=== PATIENT | male | born 1990 | race Caucasian/White ===

== ENCOUNTER → 2017-02-02 | Outpatient (CLI) | payer MEDICARE, OTHER ==
[2017-02-02 10:45] LABS: Basophils # (A) 0.1 k/uL (0-0.2); Basophils % (A) 1 %; CH 32.7; CHCM 33.9; Eosinophils # (A) 0.1 k/uL (0-0.7); Eosinophils % (A) 2 %; HCT 41.7 % (39.0-53.0); HDW 3.02; HGB 14.1 gm/dL (13.0-17.5); Luc # (Auto) 0.28; Luc % (Auto) 4; Lymphocytes % (A) 27 %; MCH 32.6 pg (25.0-35.0); MCHC 33.7 g/dL (31.0-37.0); MCV 96.8 fL (80.0-100.0); Mean Platelet Volume 9.5; Monocytes # (A) 0.7 k/uL (0-1.0); Monocytes % (A) 9 %; Neutrophils # (A) 4.2 k/uL (1.3-7.7); Neutrophils % (A) 57 %; RBC 4.31 m/uL (4.30-5.90); RDW 15.9 % (11.5-15.5); WBC 7.4 k/uL (3.8-10.6)
[2017-02-02 11:12] LABS: ALT 41 U/L (21-72); AST 26 U/L (17-59); Alkaline Phosphatase 83 U/L (38-126); Anion Gap 11 mmol/L; Bilirubin, Delta 0.1 mg/dL (0.0-0.2); Blood Urea Nitrogen 10 mg/dL (9-20); Calcium 9.2 mg/dL (8.4-10.2); Carbon Dioxide 27 mmol/L (22-30); Chloride 105 mmol/L (98-107); Cholesterol 131 mg/dL (<200); Glucose 81 mg/dL (74-99); HDL Cholesterol 24 mg/dL (40-60); Non-African American GFR(MDRD) >60 (>60 ml/min/1.73 sqM); Potassium 4.4 mmol/L (3.5-5.1); Sodium 143 mmol/L (137-145); Total Bilirubin 0.3 mg/dL (0.2-1.3); Total Protein 6.7 g/dL (6.3-8.2); Triglycerides 205 mg/dL (<150)
[2017-02-02 13:16] LABS: Hemoglobin A1C 5.2 % (4.2-6.1)
== END | disposition home or self-care (01) ==
LOC: LABWHC1 09:58
PROVIDERS: ATTEND Nurse Practitioner Family
DX: E03.9 Hypothyroidism, unspecified (principal); E55.9 Vitamin D deficiency, unspecified; Q90.9 Down syndrome, unspecified; Z79.01 Long term (current) use of anticoagulants
CPT/HCPCS: 36415; 80053; 80061; 80164; 82248; 82306; 83036; 84439; 84443; 84481; 85025

== ENCOUNTER 2017-02-27 19:06 | Emergency (ER) | payer MEDICARE, OTHER ==
[2017-02-27 19:37] VITALS: TEMP 98.3
[2017-02-27] MEDS ORDERED: ACETAMINOPHEN TAB 325 MG TAB PO STA (20:03)
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
[2017-02-27 22:00] VITALS: BP 129/69; PULSE 84; RESP 18
== END 2017-02-28 01:17 | disposition home or self-care (01) ==
LOC: EC 19:06
DX: F91.9 Conduct disorder, unspecified (principal); E07.9 Disorder of thyroid, unspecified; F32.9 Major depressive disorder, single episode, unspecified; Q90.9 Down syndrome, unspecified; Z79.899 Other long term (current) drug therapy
CPT/HCPCS: 80306; 82075; 99284

== ENCOUNTER 2017-03-17 06:55 | Emergency (ER) | payer MEDICARE, OTHER ==
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
[2017-03-17 09:15] LABS: Appearance,Urine Clear (Clear); Bilirubin,Urine Negative (Negative); Glucose,Urine (UA) Negative (Negative); Ketones,Urine Trace (Negative); Leukocyte Esterase,Urine Negative (Negative); Nitrite,Urine Negative (Negative); PH, Urine 5.5 (5.0-8.0); Protein,Urine Negative (Negative); Specific Gravity,Urine 1.016 (1.001-1.035); UA Billing (MACRO vs. MICRO) CHEM; Urobilinogen,Urine <2.0 mg/dL (<2.0)
[2017-03-17 09:51] LABS: Anisocytosis Slight; Basophils % (A) 0 %; CH 33.2; CHCM 33.5; Eosinophils # (A) 0.1 k/uL (0-0.7); Eosinophils % (A) 1 %; HCT 44.7 % (39.0-53.0); HDW 2.71; HGB 14.6 gm/dL (13.0-17.5); Luc # (Auto) 0.14; Luc % (Auto) 2; Lymphocytes # (A) 1.5 k/uL (1.0-4.8); Lymphocytes % (A) 24 %; MCH 32.4 pg (25.0-35.0); MCHC 32.6 g/dL (31.0-37.0); MCV 99.5 fL (80.0-100.0); Macrocytosis Slight; Mean Platelet Volume 9.7; Monocytes # (A) 0.5 k/uL (0-1.0); Monocytes % (A) 8 %; Neutrophils # (A) 4.1 k/uL (1.3-7.7); Neutrophils % (A) 65 %; RBC 4.49 m/uL (4.30-5.90); RDW 16.5 % (11.5-15.5); WBC 6.4 k/uL (3.8-10.6); WBC (Perox) 6.42
[2017-03-17 10:03] LABS: ALT 32 U/L (21-72); AST 21 U/L (17-59); Alkaline Phosphatase 71 U/L (38-126); Anion Gap 11 mmol/L; Blood Urea Nitrogen 10 mg/dL (9-20); Calcium 9.4 mg/dL (8.4-10.2); Carbon Dioxide 25 mmol/L (22-30); Chloride 105 mmol/L (98-107); Glucose 74 mg/dL (74-99); Magnesium 1.9 mg/dL (1.6-2.3); Non-African American GFR(MDRD) >60 (>60 ml/min/1.73 sqM); Potassium 4.4 mmol/L (3.5-5.1); Sodium 141 mmol/L (137-145); Total Bilirubin 0.4 mg/dL (0.2-1.3); Total Protein 7.7 g/dL (6.3-8.2)
--- NOTE | 2017-03-17 11:05 | XR ---
EXAMINATION TYPE: XR abdomen acute w cxr DATE OF EXAM: 03/17/2017 COMPARISON: Prior chest x-ray 11/28/2015 HISTORY: Pain TECHNIQUE: Frontal view of the chest, 3 views of the abdomen are submitted. FINDINGS: Bilateral airspace disease is present, the hemidiaphragms are partially obscured, lung vol umes are low and the patient is rotated. Heart may be enlarged, appearance of the size may be accentu ated by rotation. There is no evidence for pneumoperitoneum. The bowel gas pattern is unremarkable as there is air throughout nondilated small and large bowel. No sizeable air fluid levels. No mass effects are seen. No unusual calcifications. IMPRESSION: Correlate to exclude congestive heart failure, pneumonia. Follow-up recommended.
--- NOTE | 2017-03-17 11:46 | XR ---
EXAMINATION TYPE: XR chest 2V DATE OF EXAM: 03/17/2017 COMPARISON: Prior chest x-ray 11/28/2015 HISTORY: Cough and weakness TECHNIQUE: Frontal and lateral views of the chest are obtained. FINDINGS: Patient is rotated. Cardiac mediastinal silhouette, pulmonary vascularity and nicky appeara nce. Difficult to exclude basilar airspace disease, there is no evident pneumothorax or sizable effus ion. Exam is expiratory. IMPRESSION: Difficult to exclude right lower lobe pneumonia.
[2017-03-17] MEDS ORDERED: AZITHROMYCIN 500 MG TAB PO STA (12:13)
[2017-03-17 12:59] VITALS: BP 126/67; PULSE 81; RESP 18; TEMP 96.9
== END 2017-03-17 13:04 | disposition home or self-care (01) ==
LOC: EC 06:55
DX: F43.20 Adjustment disorder, unspecified (principal); J18.9 Pneumonia, unspecified organism; E07.9 Disorder of thyroid, unspecified; F32.9 Major depressive disorder, single episode, unspecified; Z79.899 Other long term (current) drug therapy
CPT/HCPCS: 36415; 71020; 74022; 80053; 80164; 81003; 83735; 83880; 85025; 99285

== ENCOUNTER 2017-03-17 19:42 | Inpatient (IN) | payer MEDICARE, OTHER, MEDICAID ==
[2017-03-17 20:42] LABS: Appearance,Urine Clear (Clear); Bilirubin,Urine Negative (Negative); Glucose,Urine (UA) Negative (Negative); Ketones,Urine 1+ (Negative); Leukocyte Esterase,Urine Negative (Negative); Mucus,Urine Occasional /hpf; Nitrite,Urine Negative (Negative); Particle Count 4127; Protein,Urine 1+ (Negative); RBC,Urine 1 /hpf (0-5); Specific Gravity,Urine 1.031 (1.001-1.035); Squamous Epithelial Cell,Urine <1 /hpf (0-4); UA Billing (MACRO vs. MICRO) MICRO; WBC,Urine 2 /hpf (0-5)
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
[2017-03-18] MEDS ORDERED: ZIPRASIDONE 20 MG VIAL IM PRN (19:55)
[2017-03-18] MEDS ORDERED: MAGNESIUM HYDROXIDE 2,400 MG/10 ML CUP PO PRN (19:55)
[2017-03-18] MEDS ORDERED: MAG HYDROX/AL HYDROX/SIMETH 30 ML CUP PO PRN (19:55)
[2017-03-18] MEDS: ACETAMINOPHEN TAB 325 MG TAB PO PRN (20:34)
[2017-03-18] MEDS: VALPROIC ACID ORAL SOLN 250 MG/5 ML CUP PO SCH (22:16)
[2017-03-18] MEDS: clonazePAM 1 MG TAB PO SCH (22:16)
[2017-03-18] MEDS: OLANZapine ODT 10 MG TAB PO SCH (22:16)
[2017-03-19] MEDS: FLUoxetine ORAL SOLN 20 MG/5 ML CUP PO SCH (09:34)
[2017-03-19] MEDS: VALPROIC ACID ORAL SOLN 250 MG/5 ML CUP PO SCH ×2 (09:37→22:09)
[2017-03-19] MEDS: LEVOTHYROXINE 25 MCG TAB PO SCH (09:39)
[2017-03-19] MEDS: clonazePAM 1 MG TAB PO SCH ×2 (09:40→15:52)
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
--- NOTE | 2017-03-19 15:02 | P.CONS ---
History of Present Illness - Reason for Consult Consult date: 03/19/17 Advice regarding hypothyroidism requested by psych - History of Present Illness This 36-year-old gentleman with a past medical history of for Down syndrome, hypothyroidism, history of pneumonia, followed by Dr. Armijo in the preceding was admitted with psychiatric evaluation. The patient is minimally verbal. Unable to white a detailed history. Most often history is taken from the discussion staff and review chart. There is no history of trauma. No history of nausea chest pain palpitations shortness of breath at this time. Review of Systems Review of system Could not be taken because of the patient's baseline mental status Past Medical History Past Medical History: GERD/Reflux, Thyroid Disorder Additional Past Medical History / Comment(s): down syndrome History of Any Multi-Drug Resistant Organisms: C-DIFF Year Discovered:: 02/06/2010 MDRO Source:: stool Past Surgical History: Appendectomy, Orthopedic Surgery Additional Past Surgical History / Comment(s): 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 Past Anesthesia/Blood Transfusion Reactions: No Reported Reaction Past Psychological History: Depression Smoking Status: Never smoker Past Alcohol Use History: None Reported Past Drug Use History: None Reported - Past Family History Mother Family Medical History: No Reported History Father Family Medical History: Myocardial Infarction ([place]) Medications and Allergies Home Medications Medication Instructions Recorded Confirmed Type Cholecalciferol [Vitamin D3] 3,000 unit PO DAILY@1600 11/25/15 03/17/17 History FLUoxetine HCL [PROzac ORAL SOLN] 50 mg PO DAILY@0800 11/25/15 03/17/17 History Levothyroxine Sodium [Synthroid] 25 mcg PO DAILY@0800 11/25/15 03/17/17 History OLANZapine [ZyPREXA Zydis] 10 mg PO DAILY@1600 02/27/17 03/17/17 History Valproic Acid Oral Soln [Depakene 1,250 mg PO BID@0800,2100 02/27/17 03/17/17 History Syrup] Azithromycin [Zithromax Z-pack] See Taper PO DAILY 03/17/17 03/17/17 History Clonazepam Odt 1 Mg 1 mg PO BID@0800,1600 03/17/17 03/17/17 History Clotrimazole Cream [Lotrimin Cream] 1 applic TOPICAL DAILY@1600 03/17/17 History Allergies Allergy/AdvReac Type Severity Reaction Status Date / Time No Known Allergies Allergy Verified 03/17/17 19:56 Physical Exam Vitals: Vital Signs Temp Pulse Pulse Resp BP BP Pulse Ox 03/18/17 20:20 99.1 F 82 16 114/61 98 03/18/17 18:21 97.7 F 71 18 133/60 95 On exam, alert and oriented x3. HEENT: Conjunctivae normal. eyes normal. NECK: No JVD. No thyroid enlargement. No LNs CARDIOVASCULAR: S1, S2 muffled. No murmur RESPIRATION: Breath sounds diminished in the bases. No rhonchi or crackles. No bronchial breathing. ABDOMEN: Soft, nontender . No guarding. no masses palpable. No ascites, No hepatosplenomegaly.Bowel sounds heard. LEGS: No edema. no swelling NERVOUS SYSTEM: Cranial N 2-12 grossly normal. Moves all 4 limbs. No focal deficits. No sensory deficit. No signs of cerebellar dysfucntion. Skin: no ulcer no rash Joints: No active swelling. No inflammation. Lymphatic system. No LN neck axilla or groin. Assessment and Plan Plan: Assessment 1. Hypothyroidism 2. Down syndrome 3. History of pneumonia 4. Rule out psychosis Plan In this 26-year-old gentleman who was admitted for psychiatric evaluation at this time I would recommend a home medications. Continue the same dose of hypo- thyroid medications. Continue the rest of the medication. Medication reconciliation done. I will follow the patient closely with the psych. We'll be happy to review any abnormal labs. Recommend close follow-up with Dr. Armijo after discharge. Thank you.
[2017-03-19] MEDS: OLANZapine ODT 10 MG TAB PO SCH (15:53)
[2017-03-19] MEDS: CHOLECALCIFEROL 1,000 UNIT TAB PO SCH (15:53)
[2017-03-19] MEDS: CLOTRIMAZOLE 1% CREAM 15 GM TUBE TOPICAL SCH (16:00)
[2017-03-20] MEDS: FLUoxetine ORAL SOLN 20 MG/5 ML CUP PO SCH (10:27)
[2017-03-20] MEDS: VALPROIC ACID ORAL SOLN 250 MG/5 ML CUP PO SCH ×2 (10:28→20:20)
[2017-03-20] MEDS: LEVOTHYROXINE 25 MCG TAB PO SCH (10:28)
[2017-03-20] MEDS: clonazePAM 1 MG TAB PO SCH ×2 (10:28→17:08)
--- NOTE | 2017-03-20 13:26 | P.PN ---
Progress Note - Text Interval History: Patient was seen this morning in his room where he was sitting on his bed, he was dressed in a new [facility] shirt. Patient did respond in brief sentences to most of my questions. Patient was pleasant, smiling when he responded that he had eaten breakfast and when I asked him about his stuffed animal. Patient also responded yes to his coloring activity and when I asked about the long-term on this occasion he shook his head no that he did not like it there. Mental Status: Appearance/Attitude: Patient is sitting in bed in a new [facility] shirt, making intermittent eye contact and he was cooperative. Behavior: Patient did not display any psychomotor agitation or retardation during my interview. Speech/Language: Patient only responded in brief yes or no answers to my questions at times his speech is slightly garbled and difficult to understand. Thought Process: Patient responded to questions yes or no, further assessment of his thought processes is not possible. Thought Content: Patient does not appear to be responding to internal stimuli, further assessment is difficult due to the patient's limited verbal skills. Suicidal/Homicidal Ideation: Patient has not demonstrated any self-injurious behavior or assaultive behavior on the unit. Sensorium/Cognition: Patient is alert and oriented to person and location Mood/Affect: Patient's mood is pleasant and his affect is appropriate Insight/Judgement: Patient's insight and judgment are impaired. Assessment: patient has been cooperative on the inpatient unit and there have been no incidents of aggressive or assaultive behavior. Patient has been maintained on a one-to-one staffing and has not been attending groups. Patient has been sleeping and eating well, he has been cooperative with staff. Plan: Patient was discussed in the team treatment meeting, patient has been doing well on the unit possibly due to his one-to-one staffing, as when I spoke with his mother she reported that he does well with more attention. Patient's medications have remained unchanged since his admission was there have been no incidents which would necessitate an adjustment in his medications. We will discuss with [facility] on Thursday returning the patient to his prior long-term but recommending that more intensive staffing be provided to the patient while he adjusts to his new living situation.
[2017-03-20] MEDS: CHOLECALCIFEROL 1,000 UNIT TAB PO SCH (17:07)
[2017-03-20] MEDS: OLANZapine ODT 10 MG TAB PO SCH (17:07)
[2017-03-20] MEDS: CLOTRIMAZOLE 1% CREAM 15 GM TUBE TOPICAL SCH (17:08)
[2017-03-21] MEDS: VALPROIC ACID ORAL SOLN 250 MG/5 ML CUP PO SCH ×2 (09:59→20:34)
[2017-03-21] MEDS: clonazePAM 1 MG TAB PO SCH ×2 (09:59→16:18)
[2017-03-21] MEDS: LEVOTHYROXINE 25 MCG TAB PO SCH (09:59)
[2017-03-21] MEDS: FLUoxetine ORAL SOLN 20 MG/5 ML CUP PO SCH (09:59)
[2017-03-21] MEDS: CHOLECALCIFEROL 1,000 UNIT TAB PO SCH (16:18)
[2017-03-21] MEDS: OLANZapine ODT 10 MG TAB PO SCH (16:18)
[2017-03-21] MEDS: CLOTRIMAZOLE 1% CREAM 15 GM TUBE TOPICAL SCH (16:19)
--- NOTE | 2017-03-21 17:04 | P.PN ---
Progress Note - Text Interval history: Patient is seen in cross coverage for Dr. Phoenix. He is seen in his room with one-to-one staff present. He is currently sitting on his bed. He answers questions very briefly. He seems to relay that he is not eating well, but staff does relate that he just ate and seemed to finish everything. He does seem to be compliant with the psychotropic medications. Per staff he has not been exhibiting any agitation today. Mental status exam: He is found in his room, the interview was done with him sitting on his bed. One-to-one staff is present. His answers are very brief. At times difficult to understand. He does not seem to make any reference to thoughts of harm to self or others. He does not show any current agitation. Plan: We'll maintain current psychotropic medication regimen. We'll continue to cover this patient for Dr. Phoenix through the weekend.
[2017-03-22] MEDS: LEVOTHYROXINE 25 MCG TAB PO SCH (09:33)
[2017-03-22] MEDS: VALPROIC ACID ORAL SOLN 250 MG/5 ML CUP PO SCH ×2 (09:33→21:06)
[2017-03-22] MEDS: clonazePAM 1 MG TAB PO SCH ×2 (09:33→15:22)
[2017-03-22] MEDS: FLUoxetine ORAL SOLN 20 MG/5 ML CUP PO SCH (09:33)
--- NOTE | 2017-03-22 13:30 | P.PN ---
Progress Note - Text Interval history: Patient is seen in cross coverage today for Dr. Phoenix. He is seen with one-to-one staff present. He is seated on his bed. He seems to be more verbal today as compared to yesterday. He does seem to relay that he is eating well. He seems to report that he is not sleeping that well. Seems to report that his mood is about the same. Mental status exam: He is alert and cooperative overall he does not show any agitation. He seems to describe that his mood is about the same. He responds yes regarding any thoughts of harm to self or others, then when asked regarding these separately it's very difficult to understand what his responses are. Plan: We'll maintain current psychotropic medication regimen. Monitor for any medication side effects and for any agitation. Monitor regarding any thoughts of harm to self or others. Dr. Phoenix to resume care of this patient starting tomorrow.
[2017-03-22] MEDS: CLOTRIMAZOLE 1% CREAM 15 GM TUBE TOPICAL SCH (15:20)
[2017-03-22] MEDS: OLANZapine ODT 10 MG TAB PO SCH (15:22)
[2017-03-22] MEDS: CHOLECALCIFEROL 1,000 UNIT TAB PO SCH (15:23)
[2017-03-23] MEDS: OLANZapine ODT 5 MG TAB PO PRN ×2 (08:42→22:58)
[2017-03-23] MEDS ORDERED: WATER FOR INJECTION, STERILE 10 ML IV ONE (09:09)
[2017-03-23] MEDS ORDERED: ZIPRASIDONE 20 MG VIAL IM ONE (09:09)
[2017-03-23] MEDS: FLUoxetine ORAL SOLN 20 MG/5 ML CUP PO SCH (10:27)
[2017-03-23] MEDS: clonazePAM 1 MG TAB PO SCH ×2 (10:27→16:47)
[2017-03-23] MEDS: LEVOTHYROXINE 25 MCG TAB PO SCH (10:27)
[2017-03-23] MEDS: VALPROIC ACID ORAL SOLN 250 MG/5 ML CUP PO SCH ×2 (10:27→20:29)
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
[2017-03-23] MEDS: CLOTRIMAZOLE 1% CREAM 15 GM TUBE TOPICAL SCH (16:44)
[2017-03-23] MEDS: CHOLECALCIFEROL 1,000 UNIT TAB PO SCH (16:47)
[2017-03-23] MEDS: OLANZapine ODT 5 MG TAB PO SCH (16:48)
[2017-03-23] MEDS: ACETAMINOPHEN TAB 325 MG TAB PO PRN (20:27)
--- NOTE | 2017-03-23 20:48 | XR ---
EXAMINATION TYPE: XR chest 1V DATE OF EXAM: 03/23/2017 COMPARISON: 03/17/2017 HISTORY: Cough and weakness TECHNIQUE: Single frontal view of the chest is obtained. FINDINGS: There is coarsening of interstitial markings. Heart size is normal. There is no definite h eart failure. There is no sign of pleural effusion. Costophrenic angles are clear. IMPRESSION: Coarse lung markings are nonspecific and could relate to some interstitial pneumonia. No change compared to last exam
[2017-03-24] MEDS: FLUoxetine ORAL SOLN 20 MG/5 ML CUP PO SCH (09:55)
[2017-03-24] MEDS: VALPROIC ACID ORAL SOLN 250 MG/5 ML CUP PO SCH ×2 (09:56→20:09)
[2017-03-24] MEDS: clonazePAM 1 MG TAB PO SCH ×2 (09:56→16:40)
--- NOTE | 2017-03-24 10:33 | P.PN ---
Subjective reviewed the cxr, asymptomatic, modified diet NO need for abx concern for aspiration cleared for dc Objective - Vital Signs Vital signs: Vital Signs Temp 99.1 F 03/18/17 20:20 Pulse 64 03/23/17 06:54 Resp 18 03/23/17 06:54 BP 134/75 03/23/17 06:54 Pulse Ox 98 03/18/17 20:20
[2017-03-24 11:19] LABS: Basophils # (A) 0.1 k/uL (0-0.2); Basophils % (A) 1 %; CH 32.2; CHCM 32.1; Eosinophils # (A) 0.2 k/uL (0-0.7); Eosinophils % (A) 3 %; HDW 2.79; HGB 14.8 gm/dL (13.0-17.5); Luc # (Auto) 0.22; Luc % (Auto) 4; Lymphocytes % (A) 32 %; MCH 32.4 pg (25.0-35.0); MCHC 32.2 g/dL (31.0-37.0); MCV 100.6 fL (80.0-100.0); Macrocytosis Slight; Mean Platelet Volume 8.9; Monocytes # (A) 0.5 k/uL (0-1.0); Monocytes % (A) 9 %; Neutrophils # (A) 3.2 k/uL (1.3-7.7); Neutrophils % (A) 52 %; RBC 4.57 m/uL (4.30-5.90); RDW 15.7 % (11.5-15.5); WBC 6.1 k/uL (3.8-10.6); WBC (Perox) 6.23
[2017-03-24 11:32] LABS: Anion Gap 11 mmol/L; Blood Urea Nitrogen 11 mg/dL (9-20); Calcium 9.1 mg/dL (8.4-10.2); Carbon Dioxide 28 mmol/L (22-30); Chloride 103 mmol/L (98-107); Glucose 158 mg/dL (74-99); Non-African American GFR(MDRD) >60 (>60 ml/min/1.73 sqM); Potassium 4.4 mmol/L (3.5-5.1); Sodium 142 mmol/L (137-145)
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
[2017-03-24] MEDS: LEVOTHYROXINE 25 MCG TAB PO SCH (15:09)
[2017-03-24] MEDS: OLANZapine ODT 5 MG TAB PO SCH (16:40)
[2017-03-24] MEDS: CHOLECALCIFEROL 1,000 UNIT TAB PO SCH (16:40)
[2017-03-24] MEDS: CLOTRIMAZOLE 1% CREAM 15 GM TUBE TOPICAL SCH ×2 (16:41→16:54)
[2017-03-24] MEDS: ACETAMINOPHEN TAB 325 MG TAB PO PRN (20:12)
[2017-03-25 07:20] VITALS: BP 98/56; PULSE 74; RESP 12; TEMP 97.8
[2017-03-25] MEDS: clonazePAM 1 MG TAB PO SCH (09:40)
[2017-03-25] MEDS: LEVOTHYROXINE 25 MCG TAB PO SCH (09:40)
[2017-03-25] MEDS: FLUoxetine ORAL SOLN 20 MG/5 ML CUP PO SCH (09:41)
[2017-03-25] MEDS: VALPROIC ACID ORAL SOLN 250 MG/5 ML CUP PO SCH (09:41)
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
--- NOTE | 2017-03-25 19:02 | PN ---
DATE OF SERVICE: 03/24/2017 PRESENTING COMPLAINT: Cough. INTERVAL HISTORY: This is a patient in the psychiatric unit, doing well, eating rather well. He was admitted for agitated, assaultive behavior. Patient has a cough which is dry. No fever. Up and about. Having a bowel movement. Review of systems done for constitutional, cardiovascular, GI, pulmonary; relevant findings as above. Current medications are reviewed. On examination, comfortable. EYES: Pupils equal. Conjunctivae normal. NECK: JVD not raised. Mass not palpable. Respiratory effort normal. LUNGS: Fair air entry. CARDIOVASCULAR: First and second sounds normal. No edema. ABDOMEN: Soft, non-tender. PSYCH: Awake. Answering simple questions. Blood pressure 146/90, pulse ox 98% on room air. INVESTIGATIONS: White count 6.1. Potassium 4.4. ASSESSMENT: 1. Acute bronchitis, possibly viral; no clinical evidence of pneumonia. 2. Hypothyroidism. 3. Down syndrome with a mental age of about 5, per Nursing. 4. Obesity; BMI of 39.1. PLAN: Continue current medication and treatment plan. No change in medication. Patient should follow with his family doctor upon discharge. Thank you, Dr. Phoenix. [facility]ERS[facility]
== END 2017-03-25 12:42 | disposition home or self-care (01) | DRG 886 ==
LOC: EC 19:42 → 3MHU 03-18 19:07
PROVIDERS: ADMIT Psychiatry & Neurology Psychiatry; ATTEND Psychiatry & Neurology Psychiatry
DX: F91.9 Conduct disorder, unspecified (principal); F72 Severe intellectual disabilities; R45.851 Suicidal ideations; Q90.9 Down syndrome, unspecified; F32.9 Major depressive disorder, single episode, unspecified; R19.7 Diarrhea, unspecified; E66.9 Obesity, unspecified; J20.8 Acute bronchitis due to other specified organisms; E78.9 Disorder of lipoprotein metabolism, unspecified; R45.850 Homicidal ideations; R73.09 Other abnormal glucose; F43.20 Adjustment disorder, unspecified; K21.9 Gastro-esophageal reflux disease without esophagitis; E03.9 Hypothyroidism, unspecified; Z87.01 Personal history of pneumonia (recurrent); Z90.49 Acquired absence of other specified parts of digestive tract; Z79.899 Other long term (current) drug therapy; Z82.49 Family history of ischemic heart disease and other diseases of the circulatory system; Z63.79 Other stressful life events affecting family and household; Z86.69 Personal history of other diseases of the nervous system and sense organs; Z87.19 Personal history of other diseases of the digestive system; Z86.19 Personal history of other infectious and parasitic diseases; Z87.39 Personal history of other diseases of the musculoskeletal system and connective tissue; Z91.5 Personal history of self-harm; Z65.3 Problems related to other legal circumstances
CPT/HCPCS: 36415; 71010; 71020; 74022; 80048; 80053; 80164; 80306; 80320; 81001; 81003; 83735; 83880; 84443; 85025; 99285

== ENCOUNTER 2017-04-02 12:41 | Observation (INO) | payer MEDICARE, OTHER ==
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
[2017-04-02] MEDS ORDERED: LORazepam 1 MG TAB PO STA (22:59)
[2017-04-03] MEDS ORDERED: ONDANSETRON 4 MG/2 ML VIAL IVP PRN (00:07)
[2017-04-03] MEDS ORDERED: NALOXONE 0.4 MG/ML 1 ML VIAL IV PRN (00:07)
--- NOTE | 2017-04-03 14:11 | P.HPIM ---
History of Present Illness H&P Date: 04/03/17 Chief Complaint: Agitated History of present complaint: This is a 26 year old patient known to me from prior admission who [facility] a [facility]. Patient chronic stable medical conditions include GERD , hypothyroid, Down syndrome. He was recently recently in the mental health unit discharge on 03/25/2017 with a diagnosis of disruptive behavior. Per the ER notes patient has been more agitated and striking staff at the home where he lives. Since he's been here his bearings stable. When I walked in the room patient's sitting smiling eating a bag of chips. Of course patient's history giving is limited. There is a component patient reported being changed. As per nurse. cloth printing utility worker was involved. At the present time patient looks rather comfortable sitting up and smiling. Review of systems: Difficult to obtain as the patient is a poor historian Past medical history: GERD, hypothyroid, Down syndrome, agitation and disruptive behavior at times Past surgical history Appendectomy, orthopedic surgery, telemetry, removed from the nose, eye surgery to correct crossed eyes, osteochondroma removed from the right humerus, removal of Meckel's diverticulum Home medications: Reviewed in the electronic record ALLERGIES: None Social history: Lives in a [facility]. No smoking or alcohol Family history: Patient cannot tell VITAL SIGNS: 97.5, 74, 20, 125/64, 97% GENERAL: Well-built, BMI 39.1, sitting comfortable eating chips. EYES: Pupils equal. Conjunctiva normal. HEENT: External appearance of nose and ears normal, oral cavity grossly normal. NECK: JVD not raised; masses not palpable. HEART: First and second heart sounds are normal; no edema. LUNGS: Respiratory rate normal; clear to auscultation. ABDOMEN: Soft, nontender, liver spleen not palpable, no masses palpable. LYMPHATICS: No lymph nodes palpable in the axilla and neck. PSYCH: [Difficult to assess but patient's comfortable smiling l. NEUROLOGICAL: Cranial nerves grossly intact; no facial asymmetry, power and sensation grossly intact. 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 Past Anesthesia/Blood Transfusion Reactions: No Reported Reaction Smoking Status: Never smoker - Past Family History Mother Family Medical History: No Reported History Father Family Medical History: Myocardial Infarction ([place]) Medications and Allergies Home Medications Medication Instructions Recorded Confirmed Type Cholecalciferol [Vitamin D3] 3,000 unit PO DAILY@1600 11/25/15 04/02/17 History FLUoxetine HCL [PROzac ORAL SOLN] 50 mg PO DAILY@0800 11/25/15 04/02/17 History Levothyroxine Sodium [Synthroid] 25 mcg PO DAILY@0800 11/25/15 04/02/17 History Valproic Acid Oral Soln [Depakene 1,250 mg PO BID@0800,2100 02/27/17 04/02/17 History Syrup] Clonazepam Odt 1 Mg 1 mg PO BID@0800,1600 03/17/17 04/02/17 History Clotrimazole Cream [Lotrimin Cream] 1 applic TOPICAL DAILY@1600 03/17/17 History OLANZapine [ZyPREXA Zydis] 15 mg PO DAILY@1600 #14 tab.rapdis 03/25/17 04/02/17 Rx Allergies Allergy/AdvReac Type Severity Reaction Status Date / Time No Known Allergies Allergy Verified 04/02/17 13:00
[2017-04-03] MEDS: OLANZapine ODT 5 MG TAB PO SCH (16:59)
[2017-04-03] MEDS: clonazePAM 1 MG TAB PO SCH (16:59)
[2017-04-03] MEDS: CHOLECALCIFEROL 1,000 UNIT TAB PO SCH (16:59)
[2017-04-03] MEDS: CLOTRIMAZOLE 1% CREAM 15 GM TUBE TOPICAL SCH (17:00)
[2017-04-03] MEDS: VALPROIC ACID ORAL SOLN 250 MG/5 ML CUP PO SCH (20:12)
[2017-04-04] MEDS: VALPROIC ACID ORAL SOLN 250 MG/5 ML CUP PO SCH ×2 (08:21→19:20)
[2017-04-04] MEDS: FLUoxetine ORAL SOLN 20 MG/5 ML CUP PO SCH (08:21)
[2017-04-04] MEDS: clonazePAM 1 MG TAB PO SCH ×2 (08:22→17:21)
[2017-04-04] MEDS: LEVOTHYROXINE 25 MCG TAB PO SCH (08:23)
[2017-04-04] MEDS: ENOXAPARIN 40 MG/0.4 ML SYRINGE SQ SCH (08:23)
[2017-04-04] MEDS: CHOLECALCIFEROL 1,000 UNIT TAB PO SCH (17:20)
[2017-04-04] MEDS: CLOTRIMAZOLE 1% CREAM 15 GM TUBE TOPICAL SCH (17:21)
[2017-04-04] MEDS: OLANZapine ODT 5 MG TAB PO SCH (17:21)
--- NOTE | 2017-04-04 19:06 | P.PN ---
<Tanika Haque - Last Filed: 04/04/17 18:57> Progress Note - Text DATE OF SERVICE: 04/04/2017 PRESENTING COMPLAINT: Agitation HISTORY OF PRESENT ILLNESS: 26-year-old male who is a [facility] from a [facility]. Admitted with disruptive behavior having more agitation and striking staff at home where he lives. INTERVAL HISTORY: 04/04/2017: Patient seen in follow-up today, sitting up in his bed resting quietly briefly arousable but not really interested in participating. Tolerating his diet ambulatory with assistance moved his bowels. REVIEW OF SYSTEMS: Done for constitutional ,cardiovascular, GI, pulmonary with relevant findings as above. CURRENT MEDICATIONS Klonopin, Lovenox, Prozac, Synthroid, Zyprexa, Zofran, Depakene syrup PHYSICAL EXAM VITAL SIGNS: Temperature 98.8, pulse 67, respiratory rate 18, blood pressure 109 over first 51, oxygen saturation 92% on room air. GENERAL APPEARANCE: Lying in bed, not in distress. EYES: Pupils equal. Conjunctiva normal. NECK: JVD not raised. Mass not palpable. RESPIRATORY: Respiratory effort normal. Lungs clear to auscultation. CARDIOVASCULAR: First and second sounds normal. No edema. ABDOMEN: Soft. Liver and spleen not palpable. No tenderness. No mass palpable. PSYCHIATRY: Alert and oriented x3. Mood and affect normal. NEUROLOGICAL: Cranial nerves grossly intact. No facial asymmetry. Power and sensation grossly intact INVESTIGATIONS: None new ASSESSMENT: -Agitated behavior, resolved -Down syndrome -GERD -Hypothyroid PLAN: Place patient at [facility] soon as a bed is available. SPECIAL NEEDS CAREGIVER statement: Patient was seen and examined by nurse practitioner Tanika Haque and all elements of the case discussed with attending Dr. Chung <Marquez Chung - Last Filed: 04/04/17 22:04> Progress Note - Text Attending note. Date of service-04/04/2017 This patient was seen and examined by me . Discussed the patient with my nurse practitioner Ms. Haque. Name bed comfortable. has been eating well. No more disrupter agitated behavior noted here On examination: Lungs-clear, cardiovascular-first seconds are normal Investigations: Assessment and plan: Down syndrome. Agitated behavior resolved. Eating well. Spoke to casework specialist. Looking for disposition
[2017-04-05] MEDS: VALPROIC ACID ORAL SOLN 250 MG/5 ML CUP PO SCH ×2 (09:44→19:26)
[2017-04-05] MEDS: ENOXAPARIN 40 MG/0.4 ML SYRINGE SQ SCH (09:45)
[2017-04-05] MEDS: LEVOTHYROXINE 25 MCG TAB PO SCH (09:45)
[2017-04-05] MEDS: clonazePAM 1 MG TAB PO SCH ×2 (09:45→17:09)
[2017-04-05] MEDS: FLUoxetine ORAL SOLN 20 MG/5 ML CUP PO SCH (09:45)
[2017-04-05] MEDS: CLOTRIMAZOLE 1% CREAM 15 GM TUBE TOPICAL SCH (17:08)
[2017-04-05] MEDS: OLANZapine ODT 5 MG TAB PO SCH (17:09)
[2017-04-05] MEDS: CHOLECALCIFEROL 1,000 UNIT TAB PO SCH (17:09)
--- NOTE | 2017-04-05 20:31 | P.PN ---
Progress Note - Text Attending note. Date of service-04/05/2017 This patient was seen and examined by me . Discussed the patient with my nurse practitioner Ms. Haque. Comfortable. Laying in bed. Has been eating well. BMI is well controlled. On examination: Lungs-clear, patient comfortable Investigations: Assessment and plan: Attitude and behavior well controlled. Down syndrome/GERD Hypothyroid. Patient pending transfer to [facility] social work involved.
--- NOTE | 2017-04-05 20:48 | P.PN ---
Progress Note - Text DATE OF SERVICE: 04/05/2017 PRESENTING COMPLAINT: Agitation HISTORY OF PRESENT ILLNESS: 26-year-old male who is a resident from a [facility]. Admitted with disruptive behavior having more agitation and striking staff at home where he lives. INTERVAL HISTORY: 04/05/2017: Patient seen in follow-up today, lying in bed resting quietly briefly arousable not really interested in engaging. Tolerates his diet, ambulatory with assistance, moved his bowels. 04/04/2017: Patient seen in follow-up today, sitting up in his bed resting quietly briefly arousable but not really interested in participating. Tolerating his diet ambulatory with assistance moved his bowels. REVIEW OF SYSTEMS: Done for constitutional ,cardiovascular, GI, pulmonary with relevant findings as above. CURRENT MEDICATIONS Klonopin, Lovenox, Prozac, Synthroid, Zyprexa, Zofran, Depakene syrup PHYSICAL EXAM VITAL SIGNS: Temperature 98.0, respiratory rate 18, blood pressure 138/84, oxygen saturation 92% on room air. GENERAL APPEARANCE: Lying in bed, not in distress. EYES: Pupils equal. Conjunctiva normal. NECK: JVD not raised. Mass not palpable. RESPIRATORY: Respiratory effort normal. Lungs clear to auscultation. CARDIOVASCULAR: First and second sounds normal. No edema. ABDOMEN: Soft. Liver and spleen not palpable. No tenderness. No mass palpable. PSYCHIATRY: Alert and oriented x3. Mood and affect normal. INVESTIGATIONS: None new ASSESSMENT: -Agitated behavior, resolved -Down syndrome -GERD -Hypothyroid PLAN: Place patient at [facility] soon as a bed is available. We'll continue to follow closely. Plan of care discussion deferred until family present at the bedside. CUSTOM MILLER statement: Patient was seen and examined by nurse practitioner Tanika Haque and all elements of the case discussed with attending Dr. Chung
[2017-04-06] MEDS: ACETAMINOPHEN TAB 325 MG TAB PO PRN (05:36)
[2017-04-06] MEDS: VALPROIC ACID ORAL SOLN 250 MG/5 ML CUP PO SCH ×2 (07:45→22:26)
[2017-04-06] MEDS: ENOXAPARIN 40 MG/0.4 ML SYRINGE SQ SCH (07:46)
[2017-04-06] MEDS: LEVOTHYROXINE 25 MCG TAB PO SCH (07:46)
[2017-04-06] MEDS: FLUoxetine ORAL SOLN 20 MG/5 ML CUP PO SCH (07:46)
[2017-04-06] MEDS: clonazePAM 1 MG TAB PO SCH ×2 (07:46→16:59)
[2017-04-06] MEDS: OLANZapine ODT 5 MG TAB PO SCH (16:59)
[2017-04-06] MEDS: CLOTRIMAZOLE 1% CREAM 15 GM TUBE TOPICAL SCH (17:00)
[2017-04-06] MEDS: CHOLECALCIFEROL 1,000 UNIT TAB PO SCH (17:00)
--- NOTE | 2017-04-06 21:28 | PN ---
PROGRESS NOTE DATE OF SERVICE: 04/06/17. PRESENTING COMPLAINT: Lying in bed. INTERVAL HISTORY: This is a patient resident of a [facility], admitted with agitation, destructive behavior. The patient is doing really well. Loves to eat. Pending transfer. No new symptoms. The patient has not had any episodes of disruptive behavior while in the hospital. REVIEW OF SYSTEM: Was attempted for constitutional, cardiovascular, GI, pulmonary Relevant findings as above. Patient really does not talk much. MEDICATIONS: Current medications are reviewed. PHYSICAL EXAMINATION: Temp 98.5, pulse 64, respiratory rate 16, blood pressure 99/50, pulse of 93% room air. In general appearance: lying in bed, comfortable. EYES: Pupils equal. Conjunctivae normal. Neck JVD not raised. Mass not palpable. Respiratory effort: Lungs are clear. Cardiovascular first and second sounds no edema. ABDOMEN: Soft, nontender. Liver and spleen not palpable. Psychiatry: Patient does follow simple commands. Says a few words here and there at baseline. ASSESSMENT: 1. Agitated behavior resolved. 2. Down syndrome. Chronic. 3. Gastroesophageal reflux disease, chronic. 4. Hypothyroid, chronic. 5. Obesity BMI 39.1. PLAN: Continue current medications. Awaiting transfer to [facility]. Social workers involved. MMODL / IJN: [id number] /
[2017-04-07] MEDS: ENOXAPARIN 40 MG/0.4 ML SYRINGE SQ SCH (10:15)
[2017-04-07] MEDS: FLUoxetine ORAL SOLN 20 MG/5 ML CUP PO SCH (10:15)
[2017-04-07] MEDS: LEVOTHYROXINE 25 MCG TAB PO SCH (10:15)
[2017-04-07] MEDS: VALPROIC ACID ORAL SOLN 250 MG/5 ML CUP PO SCH ×2 (10:15→20:30)
[2017-04-07] MEDS: clonazePAM 1 MG TAB PO SCH ×2 (10:15→17:19)
[2017-04-07 11:50] VITALS: RESP 18
[2017-04-07] MEDS: OLANZapine ODT 5 MG TAB PO SCH (17:19)
[2017-04-07] MEDS: CLOTRIMAZOLE 1% CREAM 15 GM TUBE TOPICAL SCH (17:19)
[2017-04-07] MEDS: CHOLECALCIFEROL 1,000 UNIT TAB PO SCH (17:19)
--- NOTE | 2017-04-07 18:57 | P.PN ---
Progress Note - Text DATE OF SERVICE: 04/07/2017 PRESENTING COMPLAINT: Agitation HISTORY OF PRESENT ILLNESS: 26-year-old male who is a [facility] from a [facility]. Admitted with disruptive behavior having more agitation and striking staff at home where he lives. INTERVAL HISTORY: 04/07/2017: Patient sitting up in the chair today eating a bag of chips. Tolerating his diet, ambulatory with assistance moving his bowels. REVIEW OF SYSTEMS: Done for constitutional ,cardiovascular, GI, pulmonary with relevant findings as above. CURRENT MEDICATIONS Klonopin, Lovenox, Prozac, Synthroid, Zyprexa, Zofran, Depakene syrup PHYSICAL EXAM VITAL SIGNS: Temperature 98.0 pulse 85 respiratory rate 18 blood pressure 115/74 oxygen saturation 92% on room air GENERAL APPEARANCE: Sitting up in a chair, not in distress. EYES: Pupils equal. Conjunctiva normal. NECK: JVD not raised. Mass not palpable. RESPIRATORY: Respiratory effort normal. Lungs clear to auscultation. CARDIOVASCULAR: First and second sounds normal. No edema. ABDOMEN: Soft. Liver and spleen not palpable. No tenderness. No mass palpable. PSYCHIATRY: Alert and oriented x3. Mood and affect normal. NEUROLOGICAL: Cranial nerves grossly intact. No facial asymmetry. Power and sensation grossly intact INVESTIGATIONS: None new ASSESSMENT: -Agitated behavior, resolved -Down syndrome -GERD -Hypothyroid PLAN: Place patient at [facility] soon as a bed is available. Social work involved FRAMER statement: Patient was seen and examined by nurse practitioner Tanika Haque and all elements of the case discussed with attending Dr. Chung
[2017-04-07] MEDS: ACETAMINOPHEN TAB 325 MG TAB PO PRN (20:51)
[2017-04-08] MEDS ORDERED: LACTULOSE 20 GM/30 ML CUP PO ONE (09:54)
--- NOTE | 2017-04-08 10:05 | P.DS ---
<Tanika Haque - Last Filed: 04/08/17 09:57> Providers Date of admission: 04/03/17 00:07 Expected date of discharge: 04/08/17 Attending physician: Marquez Chung Primary care physician: [facility] Course: FINAL DIAGNOSES: -Agitated behavior, resolved -Down syndrome -GERD -Hypothyroid HOSPTIAL COURSE: 26-year-old male presented from a [facility] with disruptive behavior. Patient was more agitated striking staff. During the course of his stay here patient has been maintained on his home medications without difficulty patient has been compliant, cooperative, calm. Social work is been involved in this case in terms of getting the patient placed. Placement has been found , patient 's condition remains stable, no emotional outbursts or disruptive behavior during the course of his stay and therefore is stable for discharge. PHYSICAL EXAM: CARDIOVASCULAR: First and second sounds noted, trace edema RESPIRATORY: Effort normal, breath sounds diminished bilaterally GI: Abdomen soft nontender liver and spleen not palpable. MUSKULOSKELETAL: Ambulatory with assistance. PSYCHIATRY: Difficult to assess patient is smiling on exam, able to answer simple straightforward questions, calm and cooperative Patient was seen and examined by nurse practitioner Tanika Haque in all elements of the case discussed with attending Dr. Chung DISPOSITION: [facility] will arrive at 1:30 to pick patient up and take [facility] to his new [facility]. Patient Condition at Discharge: Stable Plan - Discharge Summary New Discharge Prescriptions: Continue FLUoxetine HCL [PROzac ORAL SOLN] 50 mg PO DAILY@0800 Levothyroxine Sodium [Synthroid] 25 mcg PO DAILY@0800 Cholecalciferol [Vitamin D3] 3,000 unit PO DAILY@1600 Valproic Acid Oral Soln [Depakene Syrup] 1,250 mg PO BID@0800,2100 Clonazepam Odt 1 Mg 1 mg PO BID@0800,1600 Clotrimazole Cream [Lotrimin Cream] 1 applic TOPICAL DAILY@1600 OLANZapine [ZyPREXA Zydis] 15 mg PO DAILY@1600 #14 tab.rapdis Discharge Medication List Cholecalciferol [Vitamin D3] 3,000 unit PO DAILY@1600 11/25/15 [History] FLUoxetine HCL [PROzac ORAL SOLN] 50 mg PO DAILY@0800 11/25/15 [History] Levothyroxine Sodium [Synthroid] 25 mcg PO DAILY@0800 11/25/15 [History] Valproic Acid Oral Soln [Depakene Syrup] 1,250 mg PO BID@0800,2100 02/27/17 [ History] Clonazepam Odt 1 Mg 1 mg PO BID@0800,1600 03/17/17 [History] Clotrimazole Cream [Lotrimin Cream] 1 applic TOPICAL DAILY@1600 03/17/17 [ History] OLANZapine [ZyPREXA Zydis] 15 mg PO DAILY@1600 #14 tab.rapdis 03/25/17 [Rx] Follow up Appointment(s)/Referral(s): Viet Guerrero MD [Primary Care Provider] - 1-2 days Discharge Disposition: OTHER INSTITUTION NOT DEFINED <Marquez Chung - Last Filed: 04/08/17 16:01> Hospital Course: Attending note. Date of service-04/08/2017 This patient was seen and examined by me . Discussed the patient with my nurse practitioner Ms. Haque. Patient doing well. Comfortable. Sitting up. Eating well. No agitated behavior reported. On examination: Lungs-clear, psych answering simple questions, sitting up on a chair and eating chips, smiling Investigations: Assessment and plan: Stable for discharge.
[2017-04-08] MEDS: ENOXAPARIN 40 MG/0.4 ML SYRINGE SQ SCH (10:47)
[2017-04-08] MEDS: LEVOTHYROXINE 25 MCG TAB PO SCH (10:48)
[2017-04-08] MEDS: clonazePAM 1 MG TAB PO SCH (10:48)
[2017-04-08] MEDS: FLUoxetine ORAL SOLN 20 MG/5 ML CUP PO SCH (10:48)
[2017-04-08] MEDS: VALPROIC ACID ORAL SOLN 250 MG/5 ML CUP PO SCH (11:38)
[2017-04-08 11:41] VITALS: BP 121/77; PULSE 93; TEMP 97.7
== END 2017-04-08 13:35 | disposition other institution (70) ==
LOC: EC 12:41 → 3OBS 04-03 00:07
PROVIDERS: ADMIT Hospitalist; ATTEND Hospitalist
DX: R45.1 Restlessness and agitation (principal); E03.9 Hypothyroidism, unspecified; Q90.9 Down syndrome, unspecified; K21.9 Gastro-esophageal reflux disease without esophagitis; Z79.899 Other long term (current) drug therapy; Z86.19 Personal history of other infectious and parasitic diseases; F32.9 Major depressive disorder, single episode, unspecified; Z82.49 Family history of ischemic heart disease and other diseases of the circulatory system; Z68.39 Body mass index [BMI] 39.0-39.9, adult; E66.9 Obesity, unspecified
CPT/HCPCS: 96372 ×5; 82075; 99285; 36415; 80306; 80320; G0378 ×6; J1650 ×5

== ENCOUNTER → 2017-05-13 | Outpatient (CLI) | payer MEDICARE, OTHER ==
--- NOTE | 2017-05-13 11:47 | FL ---
EXAMINATION TYPE: FL barium swallow w video DATE OF EXAM: 05/13/2017 MODIFIED SWALLOW / DEGLUTITION STUDY CLINICAL HISTORY: Dysphagia. History of Down syndrome. TECHNIQUE: Deglutition study is performed utilizing thin liquid barium, honey and nectar thick liqui d barium and barium thick applesauce. A total of 2 minutes 6 seconds of fluoroscopic time was utilize d during procedure. Approximately 12 cine sequences were performed. 0 images are saved to PACS system . COMPARISON: Esophagram report December 17, 2012. FINDINGS: Exam is suboptimal due to patient's underlying condition with difficulty in patient positio robi. The oral phase is suboptimal evaluated due to patient positioning. Pharyngeal phase is felt wit hin normal limits. There is no penetration and aspiration with an as well as honey and nectar thick liquid barium which do not initiate cough reflex . Mild to moderate pharyngeal residue was appreciate d. No aspiration was clearly seen with barium thick applesauce. IMPRESSION: Aspiration with less viscous modalities remains present. Please refer to speech therapist notes for further details if necessary.
== END | disposition home or self-care (01) ==
LOC: RADFLMAIN 11:02
PROVIDERS: ATTEND Internal Medicine
DX: R13.10 Dysphagia, unspecified (principal)
CPT/HCPCS: 74230

== ENCOUNTER 2021-05-07 10:35 | Inpatient (IN) | payer MEDICARE, OTHER ==
[2021-05-07] MEDS ORDERED: ONDANSETRON 4 MG/2 ML VIAL IVP STA (10:41)
[2021-05-07] MEDS ORDERED: SODIUM CHLORIDE 0.9% 1,000 ML IV ONE (10:41)
[2021-05-07] MEDS ORDERED: ACETAMINOPHEN TAB 500 MG TAB PO STA (10:41)
[2021-05-07] MEDS ORDERED: IBUPROFEN 600 MG TAB PO STA (10:41)
--- NOTE | 2021-05-07 10:55 | ED ---
General Adult HPI - General Chief complaint: Shortness of Breath Stated complaint: DRAGAN, Vomiting,Abd pain Time Seen by Provider: 05/07/21 10:35 Source: EMS, RN notes reviewed, old records reviewed, Caregiver Mode of arrival: EMS Limitations: altered mental status (Patient is a Down syndrome patient does not communicate well) - History of Present Illness Initial comments: This is a 30-year-old male who presents emergency Department with Down syndrome. Patient was fatigued yesterday a little nauseated today and did vomit once. Patient went to [facility] any was COVID positive they thought his oxygenation on room air was down to 75% but they weren't picking up a good waveform wheezing upon arrival to 98% on room air. Patient felt warm but they did not get a temperature at the adult [facility] or urgent care. I did a temperature patient 101.5 fever. Patient has occasional cough. Patient does not appear in any respiratory distress according to the caregiver. Patient has had no diarrhea. Patient does not give any history on his own. - Related Data Home Medications Medication Instructions Recorded Confirmed Cholecalciferol [Vitamin D3 (25 1,000 unit PO DAILY@199911/25/15 05/07/21 Mcg = 1000 Iu)] Clotrimazole Cream [Lotrimin Cream] 1 applic TOPICAL DAILY@0700 03/17/17 05/07/21 Albuterol Nebulized [Ventolin 1.25 mg INHALATION RT-BID PRN 05/07/21 05/07/21 Nebulized] Divalproex Sodium [Depakote 1,250 mg PO BID@0800,199905/07/21 05/07/21 Sprinkle] FLUoxetine HCL [PROzac] 20 mg PO DAILY@0800 05/07/21 05/07/21 Levothyroxine Sodium [Synthroid] 50 mcg PO DAILY@0800 05/07/21 05/07/21 OLANZapine ODT [ZyPREXA ZYDIS] 10 mg PO DAILY@2100 05/07/21 05/07/21 Previous Rx's Medication Instructions Recorded Dexamethasone [Decadron] 6 mg PO DAILY #7 tablet 05/07/21 Allergies Allergy/AdvReac Type Severity Reaction Status Date / Time No Known Allergies Allergy Verified 05/07/21 11:28 Review of Systems ROS Statement: Those systems with pertinent positive or pertinent negative responses have been documented in the HPI. ROS Other: All systems not noted in ROS Statement are negative. 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 Past Anesthesia/Blood Transfusion Reactions: No Reported Reaction Past Psychological History: Depression Smoking Status: Never smoker Past Alcohol Use History: None Reported Past Drug Use History: None Reported - Past Family History Mother Family Medical History: No Reported History Father Family Medical History: Myocardial Infarction ([place]) General Exam - General Exam Comments Initial Comments: GENERAL: Patient is well-developed and well-nourished. Patient is nontoxic and well- hydrated and is in no acute distress. ENT: Neck is soft and supple. No significant lymphadenopathy is noted. Oropharynx is clear. Moist mucous membranes. Neck has full range of motion without eliciting any pain. EYES: The sclera were anicteric and conjunctiva were pink and moist. Extraocular movements were intact and pupils were equal round and reactive to light. Eyelids were unremarkable. PULMONARY: Unlabored respirations. Good breath sounds bilaterally. No audible rales rhonchi or wheezing was noted. CARDIOVASCULAR: Patient is tachycardic at 110 beats a minute ABDOMEN: Soft and nontender with normal bowel sounds. SKIN: Skin is clear with no lesions or rashes and otherwise unremarkable. NEUROLOGIC: Patient is alert and oriented x3. Cranial nerves II through XII are grossly intact. Motor and sensory are also intact. Normal speech, volume and content. Symmetrical smile. MUSCULOSKELETAL: Normal extremities with adequate strength and full range of motion. LYMPHATICS: No significant lymphadenopathy is noted PSYCHIATRIC: Normal psychiatric evaluation. Limitations: no limitations Course Vital Signs 05/07/21 05/07/21 10:40 12:06 Temperature 101.5 F H 101.1 F H Pulse Rate 114 H 92 Respiratory 20 18 Rate Blood Pressure 105/50 96/58 O2 Sat by Pulse 98 94 L Oximetry Medical Decision Making - Medical Decision Making Chest x-ray showed bilateral infiltrates consistent COVID. Patient did have a positive COVID test earlier. Patient did receive monoclonal antibodies emergency department but he was oxygenating between 96 and 98% on room air. Chest x-ray shows COVID pneumonia. After patient got monoclonal antibodies he started to be oxygenating and went down to 88% on room air. I spoke with some physicians agreed to admit the patient with the patient breathing orders. I consulted pulmonary and I gave the patient Decadron and continue Decadron floor. - Lab Data Result diagrams: 05/07/21 10:54 05/07/21 10:54 Lab Results 05/07/21 05/07/21 Range/Units 10:54 10:54 WBC 7.0 (3.8-10.6) k/uL RBC 4.09 L (4.30-5.90) m/uL Hgb 14.1 (13.0-17.5) gm/dL Hct 43.1 (39.0-53.0) % MCV 105.4 H (80.0-100.0) fL MCH 34.4 (25.0-35.0) pg MCHC 32.6 (31.0-37.0) g/dL RDW 15.9 H (11.5-15.5) % Plt Count 226 (150-450) k/uL MPV 9.8 Neutrophils % 84 % Lymphocytes % 6 % Monocytes % 7 % Eosinophils % 1 % Basophils % 1 % Neutrophils # 5.9 (1.3-7.7) k/uL Lymphocytes # 0.4 L (1.0-4.8) k/uL Monocytes # 0.5 (0-1.0) k/uL Eosinophils # 0.1 (0-0.7) k/uL Basophils # 0.1 (0-0.2) k/uL Macrocytosis Moderate Sodium 139 (137-145) mmol/L Potassium 4.4 (3.5-5.1) mmol/L Chloride 105 (98-107) mmol/L Carbon Dioxide 25 (22-30) mmol/L Anion Gap 9 mmol/L BUN 10 (9-20) mg/dL Creatinine 1.05 (0.66-1.25) mg/dL Est GFR (CKD-EPI)AfAm >90 (>60 ml/min/1.73 sqM) Est GFR (CKD-EPI)NonAf >90 (>60 ml/min/1.73 sqM) Glucose 88 (74-99) mg/dL Calcium 9.0 (8.4-10.2) mg/dL Total Bilirubin 0.4 (0.2-1.3) mg/dL AST 40 (17-59) U/L ALT 18 (4-49) U/L Alkaline Phosphatase 71 (38-126) U/L Total Protein 6.8 (6.3-8.2) g/dL Albumin 3.3 L (3.5-5.0) g/dL Critical Care Time Critical Care Time: Yes Total Critical Care Time: 35 Disposition Clinical Impression: Pneumonia due to COVID-19 virus Disposition: ADMITTED IP TO THIS HOSP Prescriptions: Dexamethasone [Decadron] 6 mg PO DAILY #7 tablet Referrals: None,Stated [REFERRING] - 1-2 days Time of Disposition: 12:06
[2021-05-07] MEDS ORDERED: SODIUM CHLORIDE 0.9% 50 ML IVPB ONE (11:15)
[2021-05-07] MEDS ORDERED: CASIRIVIMAB/IMDEVIMAB (EUA) 1,200 MG in SODIUM CHLORIDE 0.9% 100 ML IVPB ONE (11:30)
[2021-05-07 11:47] LABS: Basophils # (A) 0.1 k/uL (0-0.2); Basophils % (A) 1 %; Eosinophils # (A) 0.1 k/uL (0-0.7); Eosinophils % (A) 1 %; HCT 43.1 % (39.0-53.0); HGB 14.1 gm/dL (13.0-17.5); Lymphocytes # (A) 0.4 k/uL (1.0-4.8); Lymphocytes % (A) 6 %; MCH 34.4 pg (25.0-35.0); MCHC 32.6 g/dL (31.0-37.0); MCV 105.4 fL (80.0-100.0); Macrocytosis Moderate; Mean Platelet Volume 9.8; Monocytes # (A) 0.5 k/uL (0-1.0); Monocytes % (A) 7 %; Neutrophils # (A) 5.9 k/uL (1.3-7.7); Neutrophils % (A) 84 %; Platelet Count 226 k/uL (150-450); RBC 4.09 m/uL (4.30-5.90); RDW 15.9 % (11.5-15.5)
[2021-05-07 11:48] LABS: ALT 18 U/L (4-49); AST 40 U/L (17-59); African American GFR (CKD) >90 (>60 ml/min/1.73 sqM); Albumin 3.3 g/dL (3.5-5.0); Alkaline Phosphatase 71 U/L (38-126); Anion Gap 9 mmol/L; Blood Urea Nitrogen 10 mg/dL (9-20); Carbon Dioxide 25 mmol/L (22-30); Chloride 105 mmol/L (98-107); Glucose 88 mg/dL (74-99); Non-African American GFR(CKD) >90 (>60 ml/min/1.73 sqM); Potassium 4.4 mmol/L (3.5-5.1); Sodium 139 mmol/L (137-145); Total Bilirubin 0.4 mg/dL (0.2-1.3); Total Protein 6.8 g/dL (6.3-8.2)
--- NOTE | 2021-05-07 11:51 | XR ---
EXAMINATION TYPE: XR chest 2V DATE OF EXAM: 05/07/2021 COMPARISON: March 23, 2017 HISTORY: Difficulty breathing. Positive COVID. TECHNIQUE: Frontal and lateral views of the chest are obtained. FINDINGS: Low lung volumes with bibasilar opacities. The cardiac silhouette size is stable and with in normal limits. The osseous structures are intact. IMPRESSION: Low lung volumes with bibasilar acute infiltrate and/or atelectasis.
[2021-05-07] MEDS ORDERED: dexAMETHasone 2 MG TAB PO STA (13:57)
--- NOTE | 2021-05-07 15:32 | P.CNPUL ---
History of Present Illness Consult date: 05/07/21 Requesting physician: Alfredo Mclean Reason for consult: cough, hypoxemia, pneumonia, abnormal CXR/CT Chief complaint: Cough, fatigue, COVID-19 pneumonia History of present illness: This is a 30-year-old mentally handicapped male patient with history of Down syndrome, hypothyroidism, depression, lifetime nonsmoker, GERD/reflux, and previous history of pneumonia. Patient lives in a jail, his caregiver is at the bedside and providing history of the present illness, she states that yes terday Crow was sent home from [facility] because he was coughing, he was extremely tired, he had a sore throat, and had a fever. Patient had completed his COVID-19 vaccination, caregiver thinks it was Pfizer vaccine back in October 2020. He has not had a booster yet. Patient was taken down to the [facility] where she was found to be COVID positive. His oxygenation on room air was down to 75%, however it may not have been an accurate reading. He was sent to the emergency department for further evaluation and treatment, and he was found to be satting 98% on room air. Patient was febrile on presentation with a temp of 101.5F. He does not appear to be in any acute respiratory distress. He is been nauseated but has had no vomiting or diarrhea. His chest x-ray in the emergency department showed low lung volumes with bibasilar opacities. His admission labs show white blood cell count of 7.0, hemoglobin of 14.1, electrolytes in the renal profile were within normal limits, LFTs were within normal limits, patient was found to be a good candidate for Regeneron infusion which he received in the ER. Subsequently his pulse ox went down to 86% on room air, he was placed on supplemental oxygen, and he is being admitted. We were asked to see the patient in evaluation for further management of COVID-19 pneumonia Review of Systems All systems: negative Constitutional: Denies chills, Denies fever Eyes: denies blurred vision, denies pain Ears, nose, mouth and throat: Denies headache, Denies sore throat Cardiovascular: Denies chest pain, Denies shortness of breath Respiratory: Reports cough, Reports dyspnea Gastrointestinal: Denies abdominal pain, Denies diarrhea, Denies nausea, Denies vomiting Musculoskeletal: Denies myalgias Integumentary: Denies pruritus, Denies rash Neurological: Denies numbness, Denies weakness Psychiatric: Denies anxiety, Denies depression Endocrine: Denies fatigue, Denies weight change Past Medical History Past Medical History: GERD/Reflux, Thyroid Disorder Additional Past Medical History / Comment(s): down syndrome History of Any Multi-Drug Resistant Organisms: C-DIFF Date of last positivie culture/infection: 02/06/2010 MDRO Source:: stool Past Surgical History: Appendectomy, Orthopedic Surgery Additional Past Surgical History / Comment(s): 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 Past Anesthesia/Blood Transfusion Reactions: No Reported Reaction Past Psychological History: Depression Smoking Status: Never smoker Past Alcohol Use History: None Reported Past Drug Use History: None Reported - Past Family History Mother Family Medical History: No Reported History Father Family Medical History: Myocardial Infarction ([place]) Medications and Allergies Home Medications Medication Instructions Recorded Confirmed Type Cholecalciferol [Vitamin D3 (25 1,000 unit PO DAILY@199911/25/15 05/07/21 History Mcg = 1000 Iu)] Clotrimazole Cream [Lotrimin Cream] 1 applic TOPICAL DAILY@0700 03/17/17 05/07/21 History Albuterol Nebulized [Ventolin 1.25 mg INHALATION RT-BID PRN 05/07/21 05/07/21 History Nebulized] Dexamethasone [Decadron] 6 mg PO DAILY #7 tablet 05/07/21 Rx Divalproex Sodium [Depakote 1,250 mg PO BID@0800,199905/07/21 05/07/21 History Sprinkle] FLUoxetine HCL [PROzac] 20 mg PO DAILY@0800 05/07/21 05/07/21 History Levothyroxine Sodium [Synthroid] 50 mcg PO DAILY@0800 05/07/21 05/07/21 History OLANZapine ODT [ZyPREXA ZYDIS] 10 mg PO DAILY@2100 05/07/21 05/07/21 History Allergies Allergy/AdvReac Type Severity Reaction Status Date / Time No Known Allergies Allergy Verified 05/07/21 11:28 Physical Exam Vitals: Vital Signs Temp Pulse Resp BP Pulse Ox 10/05/21 12:06 101.1 F H 92 18 96/58 94 L 05/07/21 10:40 101.5 F H 114 H 20 105/50 98 Intake and Output 05/07/21 05/07/21 05/07/21 06:59 14:59 22:59 Other: Weight 54.431 kg GENERAL EXAM: 30-year-old mentally handicapped white male patient, resting in a gurney in the emergency room, currently on 2 L of oxygen comfortable in no apparent distress. Patient is able to provide basic verbal responses, however he is a poor historian, and most the history was obtained from the caregiver HEAD: Normocephalic/atraumatic. EYES: Normal reaction of pupils, equal size. Conjunctiva pink, sclera white. NOSE: Clear with pink turbinates. THROAT: No erythema or exudates. NECK: No masses, no JVD, no thyroid enlargement, no adenopathy. CHEST: No chest wall deformity. Symmetrical expansion. LUNGS: Equal air entry with bilateral crackles CVS: Regular rate and rhythm, normal S1 and S2, no gallops, no murmurs, no rubs ABDOMEN: Soft, nontender. No hepatosplenomegaly, normal bowel sounds, no guarding or rigidity. EXTREMITIES: No clubbing, no edema, no cyanosis, 2+ pulses and upper and lower extremities. MUSCULOSKELETAL: Muscle strength and tone normal. SPINE: No scoliosis or deformity SKIN: No rashes CENTRAL NERVOUS SYSTEM: Alert and oriented -2. No focal deficits, tone is normal in all 4 extremities. PSYCHIATRIC: Alert and oriented -2. Appropriate affect. Intact judgment and insight. Results - Laboratory Findings CBC and BMP: 05/07/21 10:54 05/07/21 10:54 Abnormal lab findings: Abnormal Labs 05/07/21 05/07/21 10:54 10:54 RBC 4.09 L MCV 105.4 H RDW 15.9 H Lymphocytes # 0.4 L Albumin 3.3 L - Diagnostic Findings Chest x-ray: report reviewed Assessment and Plan Plan: Assessment: #1. Acute hypoxic respiratory failure related to acute COVID-19 pneumonia, kady ent's caregiver reports 1 day of symptoms, with coughing, fever, weakness, sore throat. Was diagnosed with COVID-19 at the [facility] on 05/07/2021. Patient has completed Pfizer COvid 19 vaccination back in October 2020, he has not received a booster shot yet. Patient has received Casirivimab/Imdevimab (Regeneron) today on 05/17/2021. Did desaturate to 86% on room air, was subsequently admitted. Patient is a good candidate for Remdesivir and he will be started on it today on 05/07/2021 #2. History of Down's syndrome and developmental delay #3. Patient is a resident of a jail #4. Previous episode of pneumonia #5. GERD/reflux #6. Depression #7. Hypothyroidism Plan: We'll start the patient and Remdesivir Continue Decadron 6 mg daily We'll start prophylactic dose Lovenox Obtain d-dimer, follow inflammatory markers We'll continue to follow his clinical course I performed a history & physical examination of the patient and discussed their management with my nurse practitioner, Lou Jameson. I reviewed the nurse practitioner's note and agree with the documented findings and plan of care. Lung sounds are positive for crackles at the bases. The findings and the i mpression was discussed with the patient. I attest to the documentation by the nurse practitioner. Time with Patient: Greater than 30
[2021-05-07] MEDS ORDERED: PROCHLORPERAZINE 5 MG TAB PO PRN (15:39)
[2021-05-07] MEDS ORDERED: ACETAMINOPHEN TAB 325 MG TAB PO PRN (15:39)
[2021-05-07] MEDS ORDERED: NALOXONE 0.4 MG/ML 1 ML VIAL IV PRN (15:39)
[2021-05-07] MEDS ORDERED: IBUPROFEN 400 MG TAB PO PRN (15:39)
[2021-05-07] MEDS ORDERED: DOCUSATE 100 MG CAP PO PRN (15:39)
[2021-05-07] MEDS ORDERED: HYDROcodone/APAP 5-325MG 1 EACH TAB PO PRN (15:39)
[2021-05-07] MEDS ORDERED: ALPRAZolam 0.25 MG TAB PO PRN (15:39)
--- NOTE | 2021-05-07 15:47 | P.HPIM ---
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 Patient is a Covid vaccinated individual (with second dose of Pfiezer received 11/2020) that resides in a skilled nursing in which two other individuals tested positive for Covid 19 virus infection. Patient was reportedly found yesterday to be a little weak and fatigued and this morning had one episode of nausea and vomiting. Patient was reportedly taken to [facility] urgent care where he tested positive for Covid 19 virus infection and was found to be hypoxic at 75% on room air and patient was then transferred to the emergency department. Upon arrival to the emergency department patient was maintaining oxygen saturations with SPO2 of 96% on room air, however he was found to be febrile with temperature 101.5F and tachycardic at 114 bpm. A chest x-ray was completed showing low lung volumes with by basilar acute infiltrates. Patient was given monoclonal antibodies as initial SpO2 96-98%. However patient was noted to become hypoxic with oxygen saturations decreasing down to 86% on room air requiring oxygen supplementation. Patient was then admitted under our services for acute hypoxic respiratory failure secondary to Covid 19 pneumonitis and pulmonology was consulted. Upon physical examination at bedside, patient's mother states that per skilled nursing patient has been acting his normal self up until yesterday in which he seemed much more weak and fatigued than his usual. Patient states that his chest hurts and it hurts to cough. Review of systems: Pertinent positives and negatives as discussed in HPI, a complete review of systems was performed and all other systems are negative. Physical exam: Vital signs reviewed and stable. General: Nontoxic, no distress and appears stated age. Derm: Skin warm and dry, normal coloration for ethnicity. Head: Atraumatic, normocephalic and symmetric. Eyes: EOMs intact, no lid lag, and anicteric sclera Mouth: no lip lesions, mucus membranes moist Cardiovascular: regular rate and rhythm with normal S1S2, no murmur, positive posterior tibial pulses bilaterally, and cap refill < 2 seconds. Lungs: Respirations even, regular, and unlabored on 2 L O2 via nasal cannula. Lungs diminished crackles at bilateral bases. No wheezing, rhonchi, or rales noted. Coarse productive cough was noted during assessment. No accessory muscle usage. Abdominal: soft, nontender to palpation, no guarding, no appreciable organomegaly Ext: ROM intact. No gross muscle atrophy, no edema, no contractures Neuro: Speech clear, patient had normal mentation. Alert to person, place, and situation. Psych: Alert and oriented to person, place, and situation. Appropriate and pleasant affect. Assessment and Plan of Care: Acute hypoxic respiratory failure secondary to Covid 19 pneumonia -Oxygenation to be administered and titrated as needed to maintain SPO2 equal to or greater than 90% -Telemetry monitoring. -Decadron 6 mg daily (day 1 of steroids) -Patient received monoclonal antibodies in ED prior to becoming hypoxic -Remdesivir (dose 1 of 4) -Consult to pulmonology -Follow inflammatory markers daily. -Encourage use of Incentive Spirometry -Zinc, vitamin C, and vitamin D -Maintain strict droplet plus contact precautions. -Tylenol and/or Motrin for fever/pain. Down syndrome -Provide safe and supportive care. -Assistance as needed. Hypothyroidism Continue daily medication regimen with Synthroid 50 g each morning. Depression and anxiety -Continue daily medication regimen with Depakote, Prozac, and Zyprexa. The patient is admitted with an anticipated greater than 2 midnight stay for evaluation of acute hypoxic respiratory failure secondary to Covid pneumonia Surrogate decision-maker: Patient's mother, Bessy Marcela CODE STATUS: Full code DVT prophylaxis: Lovenox Discussed with: Patient, patient's mother and RN Anticipated discharge date: Clinical course to determine Anticipated discharge place: Back to skilled nursing A total of 45 minutes was spent on the care of this complex patient more than 50% of the time was spent in counseling and care coordination. 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 Past Anesthesia/Blood Transfusion Reactions: No Reported Reaction Past Psychological History: Depression Smoking Status: Never smoker Past Alcohol Use History: None Reported Past Drug Use History: None Reported - Past Family History Mother Family Medical History: No Reported History Father Family Medical History: Myocardial Infarction ([place]) Medications and Allergies Home Medications Medication Instructions Recorded Confirmed Type Cholecalciferol [Vitamin D3 (25 1,000 unit PO DAILY@199911/25/15 05/07/21 History Mcg = 1000 Iu)] Clotrimazole Cream [Lotrimin Cream] 1 applic TOPICAL DAILY@0700 03/17/17 05/07/21 History Albuterol Nebulized [Ventolin 1.25 mg INHALATION RT-BID PRN 05/07/21 05/07/21 History Nebulized] Dexamethasone [Decadron] 6 mg PO DAILY #7 tablet 05/07/21 Rx Divalproex Sodium [Depakote 1,250 mg PO BID@0800,199905/07/21 05/07/21 History Sprinkle] FLUoxetine HCL [PROzac] 20 mg PO DAILY@0800 05/07/21 05/07/21 History Levothyroxine Sodium [Synthroid] 50 mcg PO DAILY@0800 05/07/21 05/07/21 History OLANZapine ODT [ZyPREXA ZYDIS] 10 mg PO DAILY@2100 05/07/21 05/07/21 History Allergies Allergy/AdvReac Type Severity Reaction Status Date / Time No Known Allergies Allergy Verified 05/07/21 11:28 Physical Exam Vitals: Vital Signs Temp Pulse Resp BP Pulse Ox 05/07/21 12:06 101.1 F H 92 18 96/58 94 L 05/07/21 10:40 101.5 F H 114 H 20 105/50 98 Intake and Output 05/07/21 05/07/21 05/07/21 06:59 14:59 22:59 Other: Weight 54.431 kg Results CBC & Chem 7: 05/07/21 10:54 05/07/21 10:54 Labs: Abnormal Lab Results - Last 24 Hours (Table) 05/07/21 05/07/21 Range/Units 10:54 10:54 RBC 4.09 L (4.30-5.90) m/uL MCV 105.4 H (80.0-100.0) fL RDW 15.9 H (11.5-15.5) % Lymphocytes # 0.4 L (1.0-4.8) k/uL Albumin 3.3 L (3.5-5.0) g/dL
[2021-05-07 15:49] LABS: C Reactive Protein 4.1 mg/dL (<1.0)
[2021-05-07] MEDS ORDERED: REMDESIVIR 200 MG in SODIUM CHLORIDE 0.9% 250 ML IVPB ONE (16:00)
[2021-05-07] MEDS: ENOXAPARIN 40 MG/0.4 ML SYRINGE SQ SCH (17:41)
[2021-05-07] MEDS: DIVALPROEX SPRINKLE 125 MG CAP.SPRINK PO SCH (20:10)
[2021-05-07] MEDS: OLANZapine ODT 10 MG TAB PO SCH (20:10)
[2021-05-08 08:32] LABS: ALT 18 U/L (4-49); AST 36 U/L (17-59); African American GFR (CKD) >90 (>60 ml/min/1.73 sqM); Albumin 2.7 g/dL (3.5-5.0); Albumin/Globulin Ratio 0.8; Alkaline Phosphatase 60 U/L (38-126); Anion Gap 6 mmol/L; Blood Urea Nitrogen 15 mg/dL (9-20); Calcium 8.9 mg/dL (8.4-10.2); Carbon Dioxide 26 mmol/L (22-30); Chloride 106 mmol/L (98-107); Globulin 3.3 g/dL; Glucose 99 mg/dL (74-99); LDH 574 U/L (313-618); Non-African American GFR(CKD) >90 (>60 ml/min/1.73 sqM); Sodium 138 mmol/L (137-145); Total Bilirubin 0.3 mg/dL (0.2-1.3)
[2021-05-08] MEDS: FLUoxetine HCL 20 MG CAP PO SCH (08:51)
[2021-05-08] MEDS: CHOLECALCIFEROL 25 MCG (1000 IU) TABLET PO SCH (08:51)
[2021-05-08] MEDS: dexAMETHasone 2 MG TAB PO SCH (08:51)
[2021-05-08] MEDS: ASCORBIC ACID 500 MG TAB PO SCH (08:51)
[2021-05-08] MEDS: ENOXAPARIN 40 MG/0.4 ML SYRINGE SQ SCH (08:51)
[2021-05-08] MEDS: ZINC SULFATE 220 MG CAP PO SCH (08:51)
[2021-05-08] MEDS: LEVOTHYROXINE 50 MCG TAB PO SCH (08:51)
[2021-05-08] MEDS: DIVALPROEX SPRINKLE 125 MG CAP.SPRINK PO SCH ×2 (08:52→21:01)
[2021-05-08 09:12] LABS: C Reactive Protein 16.7 mg/dL (<1.0)
[2021-05-08 11:11] LABS: HCT 39.4 % (39.6-50.0); HGB 12.5 g/dL (13.0-17.0); MCH 33.7 pg (27.0-32.0); MCHC 31.7 g/dL (32.0-37.0); MCV 106.2 fL (80.0-97.0); Mean Platelet Volume 12.8 fL (9.5-12.2); Platelet Count 152 X 10*3/uL (140-440); RBC 3.71 X 10*6/uL (4.40-5.60); RDW 16.2 % (11.5-14.5); WBC 15.25 X 10*3/uL (4.50-10.00)
[2021-05-08 12:08] LABS: Basophils # (A) 0.02 X 10*3/uL (0.00-0.10); Basophils % (A) 0.1 %; Eosinophils # (A) 0 X 10*3/uL (0.04-0.35); Eosinophils % (A) 0 %; Lymphocytes # (A) 0.86 X 10*3/uL (0.90-5.00); Lymphocytes % (A) 5.6 %; Macrocytosis (M) 2+; Monocytes # (A) 2.17 X 10*3/uL (0.20-1.00); Monocytes % (A) 14.2 %; Neutrophils # (A) 11.83 X 10*3/uL (1.80-7.70); Neutrophils % (A) 77.7 %
--- NOTE | 2021-05-08 12:27 | P.PN ---
Subjective Progress Note Date: 05/08/21 No new complaints today. Resting comfortably in bed. Oxygen stable to improving. Objective - Vital Signs Vital signs: Vital Signs Temp 98.0 F 05/08/21 10:30 Pulse 67 05/08/21 10:30 Resp 14 05/08/21 10:30 BP 99/64 05/08/21 10:30 Pulse Ox 96 05/08/21 10:30 Intake & Output 05/07/21 05/08/21 05/08/21 18:59 06:59 18:59 Weight 54.431 kg Other: # Voids 1 2 - Exam Gen: asleep, resting comfortably HEENT: normocephalic, atraumatic, good hearing acuity, moist mucous membranes Resp: good air exchange, breathing comfortably with no accessory muscle use CVS: good distal perfusion x 4, GI: soft, NTTP, ND : no SPT, no CVAT, damon catheter not present MSK: no pitting edema, no clubbing - Labs CBC & Chem 7: 05/08/21 06:59 05/08/21 06:59 Labs: Abnormal Lab Results - Last 24 Hours (Table) 05/07/21 05/07/21 05/08/21 Range/Units 11:00 15:30 06:59 WBC 15.25 H (4.50-10.00) X 10*3/uL RBC 3.71 L (4.40-5.60) X 10*6/uL Hgb 12.5 L (13.0-17.0) g/dL Hct 39.4 L (39.6-50.0) % MCV 106.2 H (80.0-97.0) fL MCH 33.7 H (27.0-32.0) pg MCHC 31.7 L (32.0-37.0) g/dL RDW 16.2 H (11.5-14.5) % MPV 12.8 H (9.5-12.2) fL Immature Gran # 0.37 H (0.00-0.04) X 10*3/uL Neutrophils # 11.83 H (1.80-7.70) X 10*3/uL Lymphocytes # 0.86 L (0.90-5.00) X 10*3/uL Monocytes # 2.17 H (0.20-1.00) X 10*3/uL Eosinophils # 0 L (0.04-0.35) X 10*3/uL D-Dimer 0.61 H (<0.60) mg/L FEU C-Reactive Protein 4.1 H (<1.0) mg/dL Total Protein (6.3-8.2) g/dL Albumin (3.5-5.0) g/dL 05/08/21 Range/Units 06:59 WBC (4.50-10.00) X 10*3/uL RBC (4.40-5.60) X 10*6/uL Hgb (13.0-17.0) g/dL Hct (39.6-50.0) % MCV (80.0-97.0) fL MCH (27.0-32.0) pg MCHC (32.0-37.0) g/dL RDW (11.5-14.5) % MPV (9.5-12.2) fL Immature Gran # (0.00-0.04) X 10*3/uL Neutrophils # (1.80-7.70) X 10*3/uL Lymphocytes # (0.90-5.00) X 10*3/uL Monocytes # (0.20-1.00) X 10*3/uL Eosinophils # (0.04-0.35) X 10*3/uL D-Dimer (<0.60) mg/L FEU C-Reactive Protein 16.7 H (<1.0) mg/dL Total Protein 6.0 L (6.3-8.2) g/dL Albumin 2.7 L (3.5-5.0) g/dL Assessment and Plan Assessment: Acute hypoxic respiratory failure secondary to Covid 19 pneumonia -Oxygenation prn, telemetry -Decadron 6 mg daily (day 2 of steroids) -Patient received monoclonal antibodies in ED prior to becoming hypoxic -Remdesivir (dose 2 of 5) -pulm consult -Follow inflammatory markers daily. -Encourage use of Incentive Spirometry -Zinc, vitamin C, and vitamin D -Maintain strict droplet plus contact precautions. -Tylenol and/or Motrin for fever/pain. Down syndrome -Provide safe and supportive care. -Assistance as needed. Hypothyroidism Continue daily medication regimen with Synthroid 50 g each morning. Depression and anxiety -Continue daily medication regimen with Depakote, Prozac, and Zyprexa. Surrogate decision-maker: Patient's mother, Bessy Medrano CODE STATUS: Full code DVT prophylaxis: Lovenox Anticipated discharge date: Clinical course to determine Anticipated discharge place: Back to [facility]
--- NOTE | 2021-05-08 12:34 | P.PN ---
Subjective Progress Note Date: 05/08/21 Principal diagnosis: Dyspnea, hypoxia, COVID-19 pneumonia This is a 30-year-old mentally handicapped male patient with history of Down syndrome, hypothyroidism, depression, lifetime nonsmoker, GERD/reflux, and previous history of pneumonia. Patient lives in a longterm, his caregiver is at the bedside and providing history of the present illness, she states that yesterday Crow was sent home from program because he was coughing, he was extremely tired, he had a sore throat, and had a fever. Patient had completed his COVID-19 vaccination, caregiver thinks it was Pfizer vaccine back in October 2020. He has not had a booster yet. Patient was taken down to the [facility] where she was found to be COVID positive. His oxygenation on room air was down to 75%, however it may not have been an accurate reading. He was sent to the emergency department for further evaluation and treatment, and he was found to be satting 98% on room air. Patient was febrile on presentation with a temp of 101.5F. He does not appear to be in any acute respiratory distress. He is be en nauseated but has had no vomiting or diarrhea. His chest x-ray in the emergency department showed low lung volumes with bibasilar opacities. His admission labs show white blood cell count of 7.0, hemoglobin of 14.1, electrolytes in the renal profile were within normal limits, LFTs were within n ormal limits, patient was found to be a good candidate for Regeneron infusion which he received in the ER. Subsequently his pulse ox went down to 86% on room air, he was placed on supplemental oxygen, and he is being admitted. We were asked to see the patient in evaluation for further management of COVID-19 pneumonia On today's evaluation on 05/08/2021 patient seen [facility], he is awake and alert, he is able to make his basic needs known, he denies worsening shortness of breath, he states his breathing is okay, only occasional cough, lung sounds are positive for some fine rales scattered throughout the lung manzano, currently patient is on 3 L of oxygen his pulse ox is 96%, vital signs have been stable no fevers overnight, no new chest x-ray. Appetite is fair, no nausea vomiting or diarrhea per nursing staff, no new chest x-ray, patient continues on Remdesivir, and today is day 2 of treatment, patient is status post original on infusion yesterday on 05/07/2021. She also continues on Decadron 6 mg daily. Today's labs have been reviewed, white blood cell count is 15.2, hemoglobin is 12.5, d-dimer 0.59, electrolytes and renal profile are within normal limits LDH is within normal limits at 574, CRP 16.7. Objective - Vital Signs Vital signs: Vital Signs Temp 98.0 F 05/08/21 10:30 Pulse 67 05/08/21 10:30 Resp 14 05/08/21 10:30 BP 99/64 05/08/21 10:30 Pulse Ox 96 05/08/21 10:30 Intake & Output 05/07/21 05/08/21 05/08/21 18:59 06:59 18:59 Weight 54.431 kg Other: # Voids 1 2 - Exam GENERAL EXAM: 30-year-old mentally handicapped white male patient, resting comfortably in bed, on 3 L of oxygen no apparent distress. Patient is able to provide basic verbal responses, however he is a poor historian, and most the history was obtained from the caregiver HEAD: Normocephalic/atraumatic. EYES: Normal reaction of pupils, equal size. Conjunctiva pink, sclera white. NOSE: Clear with pink turbinates. THROAT: No erythema or exudates. NECK: No masses, no JVD, no thyroid enlargement, no adenopathy. CHEST: No chest wall deformity. Symmetrical expansion. LUNGS: Equal air entry with bilateral crackles CVS: Regular rate and rhythm, normal S1 and S2, no gallops, no murmurs, no rubs ABDOMEN: Soft, nontender. No hepatosplenomegaly, normal bowel sounds, no guarding or rigidity. EXTREMITIES: No clubbing, no edema, no cyanosis, 2+ pulses and upper and lower extremities. MUSCULOSKELETAL: Muscle strength and tone normal. SPINE: No scoliosis or deformity SKIN: No rashes CENTRAL NERVOUS SYSTEM: Alert and oriented -2. No focal deficits, tone is normal in all 4 extremities. PSYCHIATRIC: Alert and oriented -2. Appropriate affect. Intact judgment and insight. - Labs CBC & Chem 7: 05/08/21 06:59 05/08/21 06:59 Labs: Abnormal Lab Results - Last 24 Hours (Table) 05/07/21 05/07/21 05/08/21 Range/Units 11:00 15:30 06:59 WBC 15.25 H (4.50-10.00) X 10*3/uL RBC 3.71 L (4.40-5.60) X 10*6/uL Hgb 12.5 L (13.0-17.0) g/dL Hct 39.4 L (39.6-50.0) % MCV 106.2 H (80.0-97.0) fL MCH 33.7 H (27.0-32.0) pg MCHC 31.7 L (32.0-37.0) g/dL RDW 16.2 H (11.5-14.5) % MPV 12.8 H (9.5-12.2) fL Immature Gran # 0.37 H (0.00-0.04) X 10*3/uL Neutrophils # 11.83 H (1.80-7.70) X 10*3/uL Lymphocytes # 0.86 L (0.90-5.00) X 10*3/uL Monocytes # 2.17 H (0.20-1.00) X 10*3/uL Eosinophils # 0 L (0.04-0.35) X 10*3/uL D-Dimer 0.61 H (<0.60) mg/L FEU C-Reactive Protein 4.1 H (<1.0) mg/dL Total Protein (6.3-8.2) g/dL Albumin (3.5-5.0) g/dL 05/08/21 Range/Units 06:59 WBC (4.50-10.00) X 10*3/uL RBC (4.40-5.60) X 10*6/uL Hgb (13.0-17.0) g/dL Hct (39.6-50.0) % MCV (80.0-97.0) fL MCH (27.0-32.0) pg MCHC (32.0-37.0) g/dL RDW (11.5-14.5) % MPV (9.5-12.2) fL Immature Gran # (0.00-0.04) X 10*3/uL Neutrophils # (1.80-7.70) X 10*3/uL Lymphocytes # (0.90-5.00) X 10*3/uL Monocytes # (0.20-1.00) X 10*3/uL Eosinophils # (0.04-0.35) X 10*3/uL D-Dimer (<0.60) mg/L FEU C-Reactive Protein 16.7 H (<1.0) mg/dL Total Protein 6.0 L (6.3-8.2) g/dL Albumin 2.7 L (3.5-5.0) g/dL Assessment and Plan Plan: Assessment: #1. Acute hypoxic respiratory failure related to acute COVID-19 pneumonia, patient's caregiver reports 1 day of symptoms, with coughing, fever, weakness, sore throat. Was diagnosed with COVID-19 at the [facility] on 05[facility]07[facility]21. Patient has completed Pfizer COvid 19 vaccination back in October 2020, he has not received a booster shot yet. Patient has received Casirivimab/Imdevimab (Regeneron) today on 05/17/2021. Did desaturate to 86% on room air, was subsequently admitted. Patient is a good candidate for Remdesivir and he will be started on it today on 05/07/2021 #2. History of Down's syndrome and developmental delay #3. Patient is a resident of a longterm #4. Previous episode of pneumonia #5. GERD/reflux #6. Depression #7. Hypothyroidism Plan: Continue current medical treatment Today's date 2 of Remdesivir Continue Decadron 6 mg daily Prophylactic dose Lovenox Obtain follow-up d-dimer, LDH is still within normal limits, we'll obtain follow-up inflammatory markers No worsening dyspnea or hypoxia Continue supportive medical treatment Maintain aspiration precautions Follow-up chest x-ray tomorrow We'll continue to follow his clinical course I performed a history & physical examination of the patient and discussed their management with my nurse practitioner, Lou Jameson. I reviewed the nurse practitioner's note and agree with the documented findings and plan of care. Lung sounds are positive for crackles at the bases. The findings and the impression was discussed with the patient. I attest to the documentation by the nurse practitioner. Time with Patient: Less than 30
[2021-05-08] MEDS: REMDESIVIR 100 MG in SODIUM CHLORIDE 0.9% 250 ML IVPB SCH (17:23)
[2021-05-08] MEDS: OLANZapine ODT 10 MG TAB PO SCH (21:01)
[2021-05-09] MEDS: ENOXAPARIN 40 MG/0.4 ML SYRINGE SQ SCH (07:20)
[2021-05-09] MEDS: ASCORBIC ACID 500 MG TAB PO SCH (07:21)
[2021-05-09] MEDS: dexAMETHasone 2 MG TAB PO SCH (07:21)
[2021-05-09] MEDS: CHOLECALCIFEROL 25 MCG (1000 IU) TABLET PO SCH (07:21)
[2021-05-09] MEDS: LEVOTHYROXINE 50 MCG TAB PO SCH (07:21)
[2021-05-09] MEDS: DIVALPROEX SPRINKLE 125 MG CAP.SPRINK PO SCH (07:22)
[2021-05-09] MEDS: ZINC SULFATE 220 MG CAP PO SCH (07:22)
[2021-05-09] MEDS: FLUoxetine HCL 20 MG CAP PO SCH (07:22)
[2021-05-09 09:13] LABS: C Reactive Protein 5.9 mg/dL (<1.0)
--- NOTE | 2021-05-09 09:21 | XR ---
EXAMINATION TYPE: XR chest 1V portable DATE OF EXAM: 05/09/2021 COMPARISON: 05/07/2021 HISTORY: Cough TECHNIQUE: Single frontal view of the chest is obtained. FINDINGS: Bilateral infiltrate and small effusion stable. No pneumothorax. Heart size stable. Osseou s structures stable correlate for calcific tendinosis of the shoulder. IMPRESSION: Stable bilateral infiltrate.
[2021-05-09 10:43] VITALS: BP 96/59; PULSE 70; RESP 18; TEMP 98.1
--- NOTE | 2021-05-09 12:18 | P.PN ---
Subjective Progress Note Date: 05/09/21 Principal diagnosis: Dyspnea, hypoxia, COVID-19 pneumonia This is a 30-year-old mentally handicapped male patient with history of Down syndrome, hypothyroidism, depression, lifetime nonsmoker, GERD/reflux, and previous history of pneumonia. Patient lives in a prison, his caregiver is at the bedside and providing history of the present illness, she states that yesterday Crow was sent home from program because he was coughing, he was extremely tired, he had a sore throat, and had a fever. Patient had completed his COVID-19 vaccination, caregiver thinks it was Pfizer vaccine back in October 2020. He has not had a booster yet. Patient was taken down to the [facility] where she was found to be COVID positive. His oxygenation on room air was down to 75%, however it may not have been an accurate reading. He was sent to the emergency department for further evaluation and treatment, and he was found to be satting 98% on room air. Patient was febrile on presentation with a temp of 101.5F. He does not appear to be in any acute respiratory distress. He is be en nauseated but has had no vomiting or diarrhea. His chest x-ray in the emergency department showed low lung volumes with bibasilar opacities. His admission labs show white blood cell count of 7.0, hemoglobin of 14.1, electrolytes in the renal profile were within normal limits, LFTs were within n ormal limits, patient was found to be a good candidate for Regeneron infusion which he received in the ER. Subsequently his pulse ox went down to 86% on room air, he was placed on supplemental oxygen, and he is being admitted. We were asked to see the patient in evaluation for further management of COVID-19 pneumonia On today's evaluation on 05/08/2021 patient seen [facility] floor, he is awake and alert, he is able to make his basic needs known, he denies worsening shortness of breath, he states his breathing is okay, only occasional cough, lung sounds are positive for some fine rales scattered throughout the lung manzano, currently patient is on 3 L of oxygen his pulse ox is 96%, vital signs have been stable no fevers overnight, no new chest x-ray. Appetite is fair, no nausea vomiting or diarrhea per nursing staff, no new chest x-ray, patient continues on Remdesivir, and today is day 2 of treatment, patient is status post original on infusion yesterday on 05/07/2021. She also continues on Decadron 6 mg daily. Today's labs have been reviewed, white blood cell count is 15.2, hemoglobin is 12.5, d-dimer 0.59, electrolytes and renal profile are within normal limits LDH is within normal limits at 574, CRP 16.7. On today's evaluation on 05/09/2000 and patient seen in follow-up on medical surgical floor, he is resting comfortably in bed, does not appear to be in any acute distress, his breathing comfortably. On today's of oxygen his pulse ox is 93%, his home oxygen evaluation revealed pulse ox of 86% on room air at rest, and 84% with ambulation. Patient did qualify for home oxygen, his been afebrile, other vital signs stable. He remains on Remdesivir treatment, Decadron, and prophylactic Lovenox. No new labs today other than a d-dimer which is down to 0.41, LDH is 592, and CRP is 5.9. His had no acute events overnight. Objective - Vital Signs Vital signs: Vital Signs Temp 98.1 F 05/09/21 10:42 Pulse 70 05/09/21 10:42 Resp 18 05/09/21 10:42 BP 96/59 05/09/21 10:42 Pulse Ox 93 L 05/09/21 10:42 Intake & Output 05/08/21 05/09/21 05/09/21 18:59 06:59 18:59 Intake Total 250 Balance 250 Intake: Intake, IV Titration 250 Amount Remdesivir 100 mg In 250 Sodium Chloride 0.9% 250 ml @ 250 mls/hr IVPB DAILY@1600 [facility] Rx#: [id number] Other: Voiding Method Toilet Toilet # Voids 4 - Exam GENERAL EXAM: 30-year-old mentally handicapped white male patient, resting comfortably in bed, on 2 L of oxygen no apparent distress. Patient is able to provide basic verbal responses, however he is a poor historian, and most the history was obtained from the caregiver HEAD: Normocephalic/atraumatic. EYES: Normal reaction of pupils, equal size. Conjunctiva pink, sclera white. NOSE: Clear with pink turbinates. THROAT: No erythema or exudates. NECK: No masses, no JVD, no thyroid enlargement, no adenopathy. CHEST: No chest wall deformity. Symmetrical expansion. LUNGS: Equal air entry with bilateral crackles CVS: Regular rate and rhythm, normal S1 and S2, no gallops, no murmurs, no rubs ABDOMEN: Soft, nontender. No hepatosplenomegaly, normal bowel sounds, no guarding or rigidity. EXTREMITIES: No clubbing, no edema, no cyanosis, 2+ pulses and upper and lower extremities. MUSCULOSKELETAL: Muscle strength and tone normal. SPINE: No scoliosis or deformity SKIN: No rashes CENTRAL NERVOUS SYSTEM: Alert and oriented -2. No focal deficits, tone is normal in all 4 extremities. PSYCHIATRIC: Alert and oriented -2. Appropriate affect. Intact judgment and insight. - Labs CBC & Chem 7: 05/08/21 06:59 05/08/21 06:59 Labs: Abnormal Lab Results - Last 24 Hours (Table) 05/09/21 Range/Units 07:58 C-Reactive Protein 5.9 H (<1.0) mg/dL Assessment and Plan Plan: Assessment: #1. Acute hypoxic respiratory failure related to acute COVID-19 pneumonia, patient's caregiver reports 1 day of symptoms, with coughing, fever, weakness, sore throat. Was diagnosed with COVID-19 at the [facility] on 05/07/2021. Thelma wakefield has completed [employer] COvid 19 vaccination back in October 2020, he has not received a booster shot yet. Patient has received Casirivimab/Imdevimab (Regeneron) today on 05/17/2021. Did desaturate to 86% on room air, was subsequently admitted. Patient is a good candidate for Remdesivir and he will be started on it today on 05/07/2021 #2. History of Down's syndrome and developmental delay #3. Patient is a resident of a prison #4. Previous episode of pneumonia #5. GERD/reflux #6. Depression #7. Hypothyroidism Plan: Clinically patient has remained stable No fever or chills, vital signs are stable although still requiring small amount of supplemental oxygen at 2 L Today's date 3 of Remdesivir Patient has been getting prophylactic Lovenox, And Decadron 6 mg daily D-dimer is within normal limits, and has actually improved, LDH is within normal limits From pulmonary perspective patient can be considered for discharge home today on home oxygen He can complete a total of 10 days of oral Decadron 6 mg No need for anticoagulation Outpatient follow-up with Dr. Loza in the office in 2-3 weeks I performed a history & physical examination of the patient and discussed their management with my nurse practitioner, Lou Jameson. I reviewed the nurse practitioner's note and agree with the documented findings and plan of care. Lung sounds are positive for crackles at the bases. The findings and the impression was discussed with the patient. I attest to the documentation by the nurse practitioner. Time with Patient: Less than 30
--- NOTE | 2021-05-09 13:29 | P.DS ---
Providers Date of admission: 05/07/21 13:56 Expected date of discharge: 05/09/21 Attending physician: Gypsy Hadley Consults: 05/07/21 13:56 Consult Physician Urgent Consulting Provider: Raffy Michael Consult Reason/Comments: COVID pneumonia Do you want consulting provider notified?: Yes Primary care physician: Danielle Walton MD Hospital Course: Acute hypoxic respiratory failure secondary to Covid 19 pneumonia Patient admitted for respiratory failure secondary to Covid 19 pneumonia. He was started on oxygen placed on telemetry. Prior to becoming hypoxic, patient received monoclonal antibodies in the emergency room. He is also vaccinated patient. He was started on Decadron and Remdesivir with pulmonary consultation. Patient was followed for 3 days and the hospital and his oxygenation remained stable and improved. He was discharged on small amount of home oxygen to be followed until such time as he can be removed from oxygen. He'll need pulmonary follow-up. He'll complete a ten-day course of Decadron. Down syndrome Hypothyroidism Depression and anxiety -No other changes to home medications were made I spent 32 minutes coordinating this complex discharge Health Concerns: Gen: asleep, resting comfortably HEENT: normocephalic, atraumatic, good hearing acuity, moist mucous membranes Resp: good air exchange, breathing comfortably with no accessory muscle use CVS: good distal perfusion x 4, GI: soft, NTTP, ND : no SPT, no CVAT, damon catheter not present MSK: no pitting edema, no clubbing Patient Condition at Discharge: Good Plan - Discharge Summary Discharge Rx Participant: No New Discharge Prescriptions: New Zinc Sulfate [Orazinc] 220 mg PO DAILY #14 cap Ascorbic Acid [Vitamin C] 1,000 mg PO DAILY #14 tab Dexamethasone [Decadron] 6 mg PO DAILY #7 tablet Continue Cholecalciferol [Vitamin D3 (25 Mcg = 1000 Iu)] 1,000 unit PO DAILY@2000 Clotrimazole Cream [Lotrimin Cream] 1 applic TOPICAL DAILY@0700 Divalproex Sodium [Depakote Sprinkle] 1,250 mg PO BID@0800,2000 Albuterol Nebulized [Ventolin Nebulized] 1.25 mg INHALATION RT-BID PRN PRN Reason: Shortness Of Breath OLANZapine ODT [ZyPREXA Zydis] 10 mg PO DAILY@2100 Levothyroxine Sodium [Synthroid] 50 mcg PO DAILY@08 FLUoxetine HCL [PROzac] 20 mg PO DAILY@0800 Discharge Medication List Cholecalciferol [Vitamin D3 (25 Mcg = 1000 Iu)] 1,000 unit PO DAILY@199911/25/15 [History] Clotrimazole Cream [Lotrimin Cream] 1 applic TOPICAL DAILY@0703/17/17 [History] Albuterol Nebulized [Ventolin Nebulized] 1.25 mg INHALATION RT-BID PRN 05/07/21 [History] Dexamethasone [Decadron] 6 mg PO DAILY #7 tablet 05/07/21 [Rx] Divalproex Sodium [Depakote Sprinkle] 1,250 mg PO BID@799,199905/07/21 [Hi story] FLUoxetine HCL [PROzac] 20 mg PO DAILY@79905/07/21 [History] Levothyroxine Sodium [Synthroid] 50 mcg PO DAILY@79905/07/21 [History] OLANZapine ODT [ZyPREXA Zydis] 10 mg PO DAILY@209905/07/21 [History] Ascorbic Acid [Vitamin C] 1,000 mg PO DAILY #14 tab 05/09/21 [Rx] Zinc Sulfate [Orazinc] 220 mg PO DAILY #14 cap 05/09/21 [Rx] Follow up Appointment(s)/Referral(s): Raffy Michael MD [STAFF PHYSICIAN] - 3 Weeks None,Stated [REFERRING] - 1-2 days Activity/Diet/Wound Care/Special Instructions: Please call [facility] on discharge for transport home #[phone]. Discharge Disposition: OTHER INSTITUTION NOT DEFINED
[2021-05-09] MEDS: REMDESIVIR 100 MG in SODIUM CHLORIDE 0.9% 250 ML IVPB SCH (14:27)
== END 2021-05-09 17:05 | disposition home or self-care (01) | DRG 177 ==
LOC: EC 10:35 → 4SSUR 13:56
PROVIDERS: ADMIT Internal Medicine; ATTEND Internal Medicine
PROC: XW033E5 Introduction of Remdesivir Anti-infective into Peripheral Vein, Percutaneous Approach, New Technology Group 5 (ICD-10-PCS; principal; 2021-05-07)
PROC: 3E0F7SF Introduction of Other Gas into Respiratory Tract, Via Natural or Artificial Opening (ICD-10-PCS; 2021-05-07)
PROC: XW033H6 Introduction of Other New Technology Monoclonal Antibody into Peripheral Vein, Percutaneous Approach, New Technology Group 6 (ICD-10-PCS; 2021-05-07)
DX: U07.1 COVID-19 (principal); J12.82 Pneumonia due to coronavirus disease 2019; J96.01 Acute respiratory failure with hypoxia; Q43.0 Meckel's diverticulum (displaced) (hypertrophic); K21.9 Gastro-esophageal reflux disease without esophagitis; E03.9 Hypothyroidism, unspecified; R62.50 Unspecified lack of expected normal physiological development in childhood; R41.9 Unspecified symptoms and signs involving cognitive functions and awareness; F41.9 Anxiety disorder, unspecified; F32.9 Major depressive disorder, single episode, unspecified; Q90.9 Down syndrome, unspecified; Z98.890 Other specified postprocedural states; Z79.899 Other long term (current) drug therapy; Z79.890 Hormone replacement therapy; Z86.19 Personal history of other infectious and parasitic diseases; Z82.49 Family history of ischemic heart disease and other diseases of the circulatory system; Z87.01 Personal history of pneumonia (recurrent); Z87.19 Personal history of other diseases of the digestive system
CPT/HCPCS: 36415; 71045; 71046; 80053; 83615; 85025; 85379; 86140; 93005; 96361; 96374; 99291

== ENCOUNTER 2021-11-16 10:37 | Inpatient (IN) | payer MEDICARE, OTHER ==
[2021-11-16] MEDS ORDERED: SODIUM CHLORIDE 0.9% 1,000 ML IV STA ×2 (11:14→13:34)
--- NOTE | 2021-11-16 11:19 | ED ---
General Adult HPI - General Chief complaint: Weakness Stated complaint: fatigue Time Seen by Provider: 11/16/21 10:53 Source: patient, family, RN notes reviewed Mode of arrival: ambulatory Limitations: altered mental status, physical limitation - History of Present Illness Initial comments: Patient is a pleasant 30-year-old male with history of Down syndrome's presenting to the emergency department with family. Family is concerned that patient has been having increased fatigue over the past 2 days. Patient has been sleeping significantly. No history of similar symptoms previously. Patient is a poor historian and majority of history comes from family. Patient did complain of some back discomfort earlier. When questioned patient answered that he still has some discomfort as interpreted by family. No isolated area of weakness or confusion. - Related Data Home Medications Medication Instructions Recorded Confirmed Cholecalciferol [Vitamin D3 (25 1,000 unit PO DAILY 11/25/15 11/16/21 Mcg = 1000 Iu)] Clotrimazole Cream [Lotrimin Cream] 1 applic TOPICAL DAILY@0700 03/17/17 11/16/21 Albuterol Nebulized [Ventolin 1.25 mg INHALATION RT-BID PRN 05/07/21 11/16/21 Nebulized] Divalproex Sodium [Depakote 1,250 mg PO BID@0800,2000 05/07/21 11/16/21 Sprinkle] FLUoxetine HCL [PROzac] 20 mg PO DAILY@0800 05/07/21 11/16/21 Levothyroxine Sodium [Synthroid] 50 mcg PO DAILY@0800 05/07/21 11/16/21 OLANZapine ODT [ZyPREXA Zydis] 10 mg PO HS@2100 05/07/21 11/16/21 Albuterol Inhaler [Ventolin Hfa 1 puff INHALATION RT-Q4H PRN 11/16/21 11/16/21 Inhaler] Allergies Allergy/AdvReac Type Severity Reaction Status Date / Time No Known Allergies Allergy Verified 11/16/21 11:50 Review of Systems ROS Statement: Those systems with pertinent positive or pertinent negative responses have been documented in the HPI. ROS Other: All systems not noted in ROS Statement are negative. Constitutional: Denies: fever Eyes: Denies: eye pain ENT: Denies: ear pain Respiratory: Denies: cough, dyspnea Cardiovascular: Denies: chest pain Endocrine: Denies: fatigue Gastrointestinal: Denies: abdominal pain Genitourinary: Denies: dysuria Musculoskeletal: Reports: as per HPI, back pain (Area of discomfort is left lateral posterior hip region) Skin: Denies: rash Neurological: Reports: as per HPI. 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 Past Anesthesia/Blood Transfusion Reactions: No Reported Reaction Past Psychological History: Depression Smoking Status: Never smoker Past Alcohol Use History: None Reported Past Drug Use History: None Reported - Past Family History Mother Family Medical History: No Reported History Father Family Medical History: Myocardial Infarction ([place]) General Exam Limitations: no limitations General appearance: alert, in no apparent distress Head exam: Present: normocephalic Eye exam: Present: normal appearance Neck exam: Present: normal inspection. Absent: tenderness Respiratory exam: Present: normal lung sounds bilaterally Cardiovascular Exam: Present: regular rate, normal rhythm GI/Abdominal exam: Present: soft. Absent: distended, tenderness, guarding, rebound, rigid Extremities exam: Present: normal inspection, full ROM (Full range of motion includes and left hip without any discomfort). Absent: tenderness Back exam: Present: other (Patient states there is some mild discomfort left posterior hip/sacral region. No swelling. No erythema. Discomfort appears minimal.) Neurological exam: Present: other (Patient arouses to voice otherwise patient drifts back to sleep. Patient follow some simple commands.) Expanded Motor strength exam: RUE: 5, LUE: 5, RLE: 5, LLE: 5 Eye Response: (3) open to voice Motor Response: (6) obeys commands Verbal Response: (4) confused conversation Psychiatric exam: Present: flat affect Skin exam: Present: normal color Course Vital Signs 11/16/21 11/16/21 11/16/21 10:42 11:55 12:51 Temperature 97.9 F Pulse Rate 84 63 60 Respiratory 20 18 18 Rate Blood Pressure 115/72 95/61 93/60 O2 Sat by Pulse 97 94 L 94 L Oximetry EKG Findings - EKG Comments: EKG Findings:: Sinus rhythm with a rate of 60. OH 126. QRS 92. QT 396. QTc 414. Normal axis. Normal QRS. No acute ST change. Medical Decision Making - Medical Decision Making Patient reevaluated and resting comfortably in bed. Hygiene Assistant and family updated. Questionable pneumonia on chest x-ray. Blood pressure has been borderline. Patient will be admitted for IV fluids and IV antibiotics. Case discussed with Dr. Grider who will admit covering Dr. frederick pleitez. - Lab Data Result diagrams: 11/16/21 11:40 11/16/21 11:40 Lab Results 11/16/21 11/16/21 11/16/21 Range/Units 11:40 11:40 11:40 WBC 8.4 (3.8-10.6) k/uL RBC 3.85 L (4.30-5.90) m/uL Hgb 13.4 (13.0-17.5) gm/dL Hct 42.0 (39.0-53.0) % MCV 109.2 H (80.0-100.0) fL MCH 34.9 (25.0-35.0) pg MCHC 32.0 (31.0-37.0) g/dL RDW 15.9 H (11.5-15.5) % Plt Count 105 L (150-450) k/uL MPV 10.0 Neutrophils % 74 % Lymphocytes % 15 % Monocytes % 9 % Eosinophils % 1 % Basophils % 0 % Neutrophils # 6.2 (1.3-7.7) k/uL Lymphocytes # 1.2 (1.0-4.8) k/uL Monocytes # 0.7 (0-1.0) k/uL Eosinophils # 0.1 (0-0.7) k/uL Basophils # 0.0 (0-0.2) k/uL Manual Slide Review Performed Large Platelets Present Macrocytosis Marked A PT 11.9 (9.0-12.0) sec INR 1.1 (<1.2) APTT 32.1 H (22.0-30.0) sec Sodium (137-145) mmol/L Potassium (3.5-5.1) mmol/L Chloride (98-107) mmol/L Carbon Dioxide (22-30) mmol/L Anion Gap mmol/L BUN (9-20) mg/dL Creatinine (0.66-1.25) mg/dL Est GFR (CKD-EPI)AfAm (>60 ml/min/1.73 sqM) Est GFR (CKD-EPI)NonAf (>60 ml/min/1.73 sqM) Glucose (74-99) mg/dL Plasma Lactic Acid Km (0.7-2.0) mmol/L Calcium (8.4-10.2) mg/dL Phosphorus (2.5-4.5) mg/dL Magnesium (1.6-2.3) mg/dL Total Bilirubin (0.2-1.3) mg/dL AST (17-59) U/L ALT (4-49) U/L Alkaline Phosphatase (38-126) U/L Troponin I (0.000-0.034) ng/mL Total Protein (6.3-8.2) g/dL Albumin (3.5-5.0) g/dL TSH (0.465-4.680) mIU/L Free T4 (0.78-2.19) ng/dL Free T3 pg/mL (2.8-5.3) pg/ml Urine Color Yellow Urine Appearance Clear (Clear) Urine pH 6.0 (5.0-8.0) Ur Specific Delta 1.037 H (1.001-1.035) Urine Protein 1+ H (Negative) Urine Glucose (UA) Negative (Negative) Urine Ketones 1+ H (Negative) Urine Blood Negative (Negative) Urine Nitrite Negative (Negative) Urine Bilirubin Negative (Negative) Urine Urobilinogen >12.0 (<2.0) mg/dL Ur Leukocyte Esterase Negative (Negative) Urine RBC 1 (0-5) /hpf Urine WBC 2 (0-5) /hpf Ur Squamous Epith Cells 1 (0-4) /hpf Urine Mucus Occasional H (None) /hpf Coronavirus (PCR) (Not Detectd) 11/16/21 11/16/21 11/16/21 Range/Units 11:40 11:40 11:40 WBC (3.8-10.6) k/uL RBC (4.30-5.90) m/uL Hgb (13.0-17.5) gm/dL Hct (39.0-53.0) % MCV (80.0-100.0) fL MCH (25.0-35.0) pg MCHC (31.0-37.0) g/dL RDW (11.5-15.5) % Plt Count (150-450) k/uL MPV Neutrophils % % Lymphocytes % % Monocytes % % Eosinophils % % Basophils % % Neutrophils # (1.3-7.7) k/uL Lymphocytes # (1.0-4.8) k/uL Monocytes # (0-1.0) k/uL Eosinophils # (0-0.7) k/uL Basophils # (0-0.2) k/uL Manual Slide Review Large Platelets Macrocytosis PT (9.0-12.0) sec INR (<1.2) APTT (22.0-30.0) sec Sodium 140 (137-145) mmol/L Potassium 4.5 (3.5-5.1) mmol/L Chloride 105 (98-107) mmol/L Carbon Dioxide 31 H (22-30) mmol/L Anion Gap 4 mmol/L BUN 13 (9-20) mg/dL Creatinine 1.07 (0.66-1.25) mg/dL Est GFR (CKD-EPI)AfAm >90 (>60 ml/min/1.73 sqM) Est GFR (CKD-EPI)NonAf >90 (>60 ml/min/1.73 sqM) Glucose 90 (74-99) mg/dL Plasma Lactic Acid Km 1.4 (0.7-2.0) mmol/L Calcium 8.6 (8.4-10.2) mg/dL Phosphorus 3.2 (2.5-4.5) mg/dL Magnesium 2.3 (1.6-2.3) mg/dL Total Bilirubin 0.6 (0.2-1.3) mg/dL AST 26 (17-59) U/L ALT 9 (4-49) U/L Alkaline Phosphatase 45 (38-126) U/L Troponin I <0.012 (0.000-0.034) ng/mL Total Protein 6.2 L (6.3-8.2) g/dL Albumin 3.0 L (3.5-5.0) g/dL TSH 1.260 (0.465-4.680) mIU/L Free T4 1.04 (0.78-2.19) ng/dL Free T3 pg/mL 2.9 (2.8-5.3) pg/ml Urine Color Urine Appearance (Clear) Urine pH (5.0-8.0) Ur Specific Delta (1.001-1.035) Urine Protein (Negative) Urine Glucose (UA) (Negative) Urine Ketones (Negative) Urine Blood (Negative) Urine Nitrite (Negative) Urine Bilirubin (Negative) Urine Urobilinogen (<2.0) mg/dL Ur Leukocyte Esterase (Negative) Urine RBC (0-5) /hpf Urine WBC (0-5) /hpf Ur Squamous Epith Cells (0-4) /hpf Urine Mucus (None) /hpf Coronavirus (PCR) (Not Detectd) 11/16/21 Range/Units 11:40 WBC (3.8-10.6) k/uL RBC (4.30-5.90) m/uL Hgb (13.0-17.5) gm/dL Hct (39.0-53.0) % MCV (80.0-100.0) fL MCH (25.0-35.0) pg MCHC (31.0-37.0) g/dL RDW (11.5-15.5) % Plt Count (150-450) k/uL MPV Neutrophils % % Lymphocytes % % Monocytes % % Eosinophils % % Basophils % % Neutrophils # (1.3-7.7) k/uL Lymphocytes # (1.0-4.8) k/uL Monocytes # (0-1.0) k/uL Eosinophils # (0-0.7) k/uL Basophils # (0-0.2) k/uL Manual Slide Review Large Platelets Macrocytosis PT (9.0-12.0) sec INR (<1.2) APTT (22.0-30.0) sec Sodium (137-145) mmol/L Potassium (3.5-5.1) mmol/L Chloride (98-107) mmol/L Carbon Dioxide (22-30) mmol/L Anion Gap mmol/L BUN (9-20) mg/dL Creatinine (0.66-1.25) mg/dL Est GFR (CKD-EPI)AfAm (>60 ml/min/1.73 sqM) Est GFR (CKD-EPI)NonAf (>60 ml/min/1.73 sqM) Glucose (74-99) mg/dL Plasma Lactic Acid Km (0.7-2.0) mmol/L Calcium (8.4-10.2) mg/dL Phosphorus (2.5-4.5) mg/dL Magnesium (1.6-2.3) mg/dL Total Bilirubin (0.2-1.3) mg/dL AST (17-59) U/L ALT (4-49) U/L Alkaline Phosphatase (38-126) U/L Troponin I (0.000-0.034) ng/mL Total Protein (6.3-8.2) g/dL Albumin (3.5-5.0) g/dL TSH (0.465-4.680) mIU/L Free T4 (0.78-2.19) ng/dL Free T3 pg/mL (2.8-5.3) pg/ml Urine Color Urine Appearance (Clear) Urine pH (5.0-8.0) Ur Specific Delta (1.001-1.035) Urine Protein (Negative) Urine Glucose (UA) (Negative) Urine Ketones (Negative) Urine Blood (Negative) Urine Nitrite (Negative) Urine Bilirubin (Negative) Urine Urobilinogen (<2.0) mg/dL Ur Leukocyte Esterase (Negative) Urine RBC (0-5) /hpf Urine WBC (0-5) /hpf Ur Squamous Epith Cells (0-4) /hpf Urine Mucus (None) /hpf Coronavirus (PCR) Not Detected (Not Detectd) - Radiology Data Radiology results: report reviewed (CT brain shows no acute process), image reviewed (Abdominal x-ray shows no acute process. Chest x-ray shows increased density right midlung, may reflect developing infiltrate.) Disposition Clinical Impression: Pneumonia Disposition: ADMITTED IP TO THIS [facility] Is patient prescribed a controlled substance at d/c from ED?: No Referrals: Danielle Walton MD [Primary Care Provider] - 1-2 days Decision Time: 13:54
[2021-11-16 11:56] LABS: Basophils % (A) 0 %; Eosinophils # (A) 0.1 k/uL (0-0.7); Eosinophils % (A) 1 %; HGB 13.4 gm/dL (13.0-17.5); Lymphocytes # (A) 1.2 k/uL (1.0-4.8); Lymphocytes % (A) 15 %; MCH 34.9 pg (25.0-35.0); MCV 109.2 fL (80.0-100.0); Macrocytosis Marked; Monocytes # (A) 0.7 k/uL (0-1.0); Monocytes % (A) 9 %; Neutrophils # (A) 6.2 k/uL (1.3-7.7); Neutrophils % (A) 74 %; Platelet Count 105 k/uL (150-450); RBC 3.85 m/uL (4.30-5.90); RDW 15.9 % (11.5-15.5); WBC 8.4 k/uL (3.8-10.6)
[2021-11-16 12:16] LABS: ALT 9 U/L (4-49); AST 26 U/L (17-59); African American GFR (CKD) >90 (>60 ml/min/1.73 sqM); Alkaline Phosphatase 45 U/L (38-126); Anion Gap 4 mmol/L; Blood Urea Nitrogen 13 mg/dL (9-20); Calcium 8.6 mg/dL (8.4-10.2); Carbon Dioxide 31 mmol/L (22-30); Chloride 105 mmol/L (98-107); Glucose 90 mg/dL (74-99); Magnesium 2.3 mg/dL (1.6-2.3); Non-African American GFR(CKD) >90 (>60 ml/min/1.73 sqM); Phosphorus 3.2 mg/dL (2.5-4.5); Potassium 4.5 mmol/L (3.5-5.1); Sodium 140 mmol/L (137-145); Total Bilirubin 0.6 mg/dL (0.2-1.3); Total Protein 6.2 g/dL (6.3-8.2)
[2021-11-16 12:17] LABS: INR 1.1 (<1.2); Partial Thromboplastin Time 32.1 sec (22.0-30.0); Prothrombin Time 11.9 sec (9.0-12.0)
--- NOTE | 2021-11-16 12:21 | XR ---
EXAMINATION TYPE: XR chest 2V DATE OF EXAM: 11/16/2021 COMPARISON: 05/09/21 HISTORY: Chest pain TECHNIQUE: Frontal and lateral views of the chest are obtained. FINDINGS: Increased density right medial lung base may reflect developing infiltrate. Correlate clinically. No evidence for pneumothorax. No pleural effusion. The cardiac silhouette size is within normal limits. The osseous structures are grossly intact. IMPRESSION: 1. Increased density right medial lung base may reflect developing infiltrate. Correlate clinically.
[2021-11-16 12:23] LABS: Appearance,Urine Clear (Clear); Bilirubin,Urine Negative (Negative); Blood,Urine Negative (Negative); Color,Urine Yellow; Glucose,Urine (UA) Negative (Negative); Ketones,Urine 1+ (Negative); Leukocyte Esterase,Urine Negative (Negative); Mucus,Urine Occasional /hpf; Nitrite,Urine Negative (Negative); Protein,Urine 1+ (Negative); RBC,Urine 1 /hpf (0-5); Specific Gravity,Urine 1.037 (1.001-1.035); Squamous Epithelial Cell,Urine 1 /hpf (0-4); Urobilinogen,Urine >12.0 mg/dL (<2.0); WBC,Urine 2 /hpf (0-5)
--- NOTE | 2021-11-16 12:23 | XR ---
EXAMINATION TYPE: XR abdomen 1V DATE OF EXAM: 11/16/2021 COMPARISON: NONE HISTORY: Pain TECHNIQUE: Single supine KUB image of the abdomen is obtained FINDINGS: Small bowel demonstrates no evidence for dilatation or air fluid levels. Gas and fecal material is seen in non-distended colon. No convincing evidence for pneumoperitoneum. No unusual calcifications. The lung bases are clear. The osseous structures are intact. IMPRESSION: 1. Overall nonobstructive bowel gas pattern.
[2021-11-16 12:31] LABS: Large Platelets Present
[2021-11-16 12:32] LABS: T4, Free (Free Thyroxine) 1.04 ng/dL (0.78-2.19)
--- NOTE | 2021-11-16 12:43 | CT ---
EXAMINATION TYPE: CT brain wo con DATE OF EXAM: 11/16/2021 COMPARISON: none HISTORY: Weakness CT DLP: 1033.[address] of the brain was performed. The ventricles, basal cisterns and sulci overlying the cerebral convexities demonstrate a normal appe arance. There is no evidence for intracranial hemorrhage or sulcal effacement. No mass effects are seen. Osseous calvarium is intact. If symptoms persist consider MRI as clinically warranted. IMPRESSION: 1. No acute intracranial process is seen at this time.
[2021-11-16] MEDS ORDERED: AZITHROMYCIN 500 MG in SODIUM CHLORIDE 0.9% 250 ML IVPB STA (13:51)
[2021-11-16] MEDS ORDERED: PNEUMONIA PROTOCOL UTILIZED 1 EACH MISC PO PRN (13:51)
[2021-11-16] MEDS: SODIUM CHLORIDE 0.9% 1,000 ML IV SCH ×2 (14:17→22:27)
[2021-11-16] MEDS ORDERED: NALOXONE 0.4 MG/ML 1 ML VIAL IV PRN (16:04)
[2021-11-16] MEDS ORDERED: ONDANSETRON 4 MG/2 ML VIAL IVP PRN (16:04)
[2021-11-16] MEDS ORDERED: ALBUTEROL NEBULIZED 1.25 MG/3 ML INHALATION PRN (16:06)
--- NOTE | 2021-11-16 16:10 | P.HPIM ---
History of Present Illness H&P Date: 11/16/21 Chief Complaint: lethargy Patient is a 30-year-old male with Down syndrome, GERD, Prior COVID in 05/2021, and thyroid dysfunction who presented to the hospital secondary to increased lethargy. In the ER he underwent an extensive evaluation. Initial vital signs were within normal limits but he did become hypotensive with a systolic blood pressure of 86 which responded to fluid bolus. Initial laboratory analysis showed platelet count of 105, carbon dioxide 31, but was otherwise unremarkable. TSH was normal, urinalysis without signs of infection, COVID and influenza t esting were negative. Chest x-ray did reveal possible early right-sided infiltrate and patient does have a history of aspiration. KUB witout acute process and CT head wtih no acute process. In the ER he was given a dose of Rocephin and Zithromax. He was started on IV fluids. Patient seen and examined at bedside with nursing present. He is difficult to understand but clearly denies pain and expresses that he is hungry. When asked if he has had a cough he says "I don't know". He denies any pain. No family or caregiver present at bedside. zSpoke with Skylar his memory care director who states that he has been compaining of low back pain and complained of a sore throat. All information is obtained from thorough record review of the chart. Nursing has confirmed all history with patient's mother. Unable to obtain review of systems secondary to patient's underlying Down syndrome. General: Ill appearing, no distress, appears at stated age Derm: warm, dry Head: atraumatic, normocephalic, symmetric Eyes: EOMI, no lid lag, anicteric sclera, pupils equal round reactive to light, +horizontal nystagamus ENT: Nose and ears atraumatic, no thrush, no pharyngeal erythema Neck: No thyromegaly, no cervical lymphadenopathy, trachea midline, supple Mouth: no lip lesion, mucus membranes dry Cardiovascular: S1S2 reg, no murmur, positive posterior tibial pulse bilateral, no edema, capillary refill less than 2 seconds Lungs: Course bs bilateral, no ronchi, no rales, no wheeze, no accessory muscle use Abdominal: soft, nontender to palpation, no guarding, no appreciable organomegaly, normal bowel sounds Ext: + gross muscle atrophy of intrinsic hand muslces, moving all 4 extremties independently, no contractures Neuro: CN II-XI grossly intact, light touch intact all 4 extremities Psych: lethargic, oriented to slef, flat affect Assessment/plan: Lethargy Hypotension - IV fluids - Check Depakote and ammonia level - Possible early PNA - IV fluids, rocephin and zithromax - repeat CXR in AM - COVID and Flu negative Downs syndrome with behavioral disturbances - zyprex, hold depakote until level is back Hypothyroidism - synthroid - TSH normal The patient is placed in observation with an anticipated less than 2 midnight stay for evaluation of Lethargy. Surrogate decision-maker: Mother CODE STATUS:Full DVT prophylaxis: SCDs Discussed with: Patient, nursing, Skylar his managed care coordinator Anticipated discharge date: in AM Anticipated discharge place: home A total of 65 minutes was spent on the care of this complex patient more than 50% of the time was spent in counseling and care coordination. 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 Past Anesthesia/Blood Transfusion Reactions: No Reported Reaction Past Psychological History: Depression Additional Psychological History / Comment(s): down syndrome. Smoking Status: Never smoker Past Alcohol Use History: None Reported Past Drug Use History: None Reported - Past Family History Mother Family Medical History: No Reported History Father Family Medical History: Myocardial Infarction ([place]) Medications and Allergies Home Medications Medication Instructions Recorded Confirmed Type Cholecalciferol [Vitamin D3 (25 1,000 unit PO DAILY 11/25/15 11/16/21 History Mcg = 1000 Iu)] Clotrimazole Cream [Lotrimin Cream] 1 applic TOPICAL DAILY@0700 03/17/17 11/16/21 History Albuterol Nebulized [Ventolin 1.25 mg INHALATION RT-BID PRN 05/07/21 11/16/21 History Nebulized] Divalproex Sodium [Depakote 1,250 mg PO BID@0800,2000 05/07/21 11/16/21 History Sprinkle] FLUoxetine HCL [PROzac] 20 mg PO DAILY@0800 05/07/21 11/16/21 History Levothyroxine Sodium [Synthroid] 50 mcg PO DAILY@0800 05/07/21 11/16/21 History OLANZapine ODT [ZyPREXA Zydis] 10 mg PO HS@2100 05/07/21 11/16/21 History Albuterol Inhaler [Ventolin Hfa 1 puff INHALATION RT-Q4H PRN 11/16/21 11/16/21 History Inhaler] Allergies Allergy/AdvReac Type Severity Reaction Status Date / Time No Known Allergies Allergy Verified 11/16/21 11:50 Physical Exam Osteopathic Statement: *. No significant issues noted on an osteopathic structural exam other than those noted in the History and Physical/Consult. Vitals: Vital Signs Temp Pulse Pulse Resp BP BP Pulse Ox 11/16/21 15:20 97.7 F 62 16 94/66 100 11/16/21 14:28 59 L 18 98 11/16/21 14:21 57 L 18 98/59 99 11/16/21 12:51 60 18 93/60 94 L 11/16/21 11:55 63 18 95/61 94 L 11/16/21 10:42 97.9 F 84 20 115/72 97 Intake and Output 11/16/21 11/16/21 11/16/21 06:59 14:59 22:59 Other: # Voids 1 Weight 86.183 kg 86.183 kg Results CBC & Chem 7: 11/16/21 11:40 11/16/21 11:40 Labs: Abnormal Lab Results - Last 24 Hours (Table) 11/16/21 11/16/21 11/16/21 Range/Units 11:40 11:40 11:40 RBC 3.85 L (4.30-5.90) m/uL MCV 109.2 H (80.0-100.0) fL RDW 15.9 H (11.5-15.5) % Plt Count 105 L (150-450) k/uL Macrocytosis Marked A APTT 32.1 H (22.0-30.0) sec Carbon Dioxide (22-30) mmol/L Total Protein (6.3-8.2) g/dL Albumin (3.5-5.0) g/dL Ur Specific Marshall 1.037 H (1.001-1.035) Urine Protein 1+ H (Negative) Urine Ketones 1+ H (Negative) Urine Mucus Occasional H (None) /hpf 11/16/21 Range/Units 11:40 RBC (4.30-5.90) m/uL MCV (80.0-100.0) fL RDW (11.5-15.5) % Plt Count (150-450) k/uL Macrocytosis APTT (22.0-30.0) sec Carbon Dioxide 31 H (22-30) mmol/L Total Protein 6.2 L (6.3-8.2) g/dL Albumin 3.0 L (3.5-5.0) g/dL Ur Specific Marshall (1.001-1.035) Urine Protein (Negative) Urine Ketones (Negative) Urine Mucus (None) /hpf Thrombosis Risk Factor Assmnt - Choose All That Apply Each Factor Represents 1 point: Obesity (BMI >25) Thrombosis Risk Factor Assessment Total Risk Factor Score: 1 Thrombosis Risk Factor Assessment Level: Low Risk
[2021-11-16] MEDS ORDERED: LACTULOSE 20 GM/30 ML CUP PO ONE (19:00)
[2021-11-16] MEDS ORDERED: LORazepam 2 MG/ML INJ IV PRN (19:31)
[2021-11-16] MEDS: OLANZapine ODT 10 MG TAB PO SCH (20:35)
[2021-11-16] MEDS: LACTULOSE 20 GM/30 ML CUP PO SCH (22:27)
[2021-11-17] MEDS: SODIUM CHLORIDE 0.9% 1,000 ML IV SCH ×3 (05:49→14:14)
--- NOTE | 2021-11-17 07:31 | XR ---
EXAMINATION TYPE: XR chest 1V portable DATE OF EXAM: 11/17/2021 COMPARISON: 11/16/2021 HISTORY: Chest pain TECHNIQUE: Single frontal view of the chest is obtained. FINDINGS: Allowing for differences in technique periHilar and basilar infiltrates persist unchanged. The cardiac silhouette size is within normal limits. The osseous structures are intact. IMPRESSION: 1. Allowing for differences in technique periHilar and basilar infiltrates persist unchanged.
[2021-11-17] MEDS: LEVOTHYROXINE 50 MCG TAB PO SCH (07:55)
[2021-11-17] MEDS: LACTULOSE 20 GM/30 ML CUP PO SCH ×2 (07:55→20:01)
[2021-11-17] MEDS: FLUoxetine HCL 20 MG CAP PO SCH (07:55)
[2021-11-17 08:05] LABS: African American GFR (CKD) >90 (>60 ml/min/1.73 sqM); Anion Gap 4 mmol/L; Blood Urea Nitrogen 9 mg/dL (9-20); Calcium 8.5 mg/dL (8.4-10.2); Carbon Dioxide 28 mmol/L (22-30); Chloride 109 mmol/L (98-107); Glucose 110 mg/dL (74-99); Non-African American GFR(CKD) >90 (>60 ml/min/1.73 sqM); Sodium 141 mmol/L (137-145)
[2021-11-17 08:15] LABS: Potassium 4.7 mmol/L (3.5-5.1); Valproic Acid (Depakene) 132.2 ug/mL
[2021-11-17 08:19] LABS: HCT 48.3 % (39.0-53.0); HGB 15.3 gm/dL (13.0-17.5); Hypochromasia Marked; MCH 36.3 pg (25.0-35.0); MCHC 31.6 g/dL (31.0-37.0); Macrocytosis Marked; Mean Platelet Volume 11.2; RBC 4.21 m/uL (4.30-5.90); RDW 15.9 % (11.5-15.5); WBC 9.7 k/uL (3.8-10.6)
[2021-11-17 08:28] LABS: MCV 114.9 fL (80.0-100.0)
[2021-11-17] MEDS ORDERED: VANCOMYCIN IV PER PHARMACY 1 EACH MISC MISCELLANE PRN ×2 (08:30→21:12)
[2021-11-17 08:47] LABS: Platelet Count 64 k/uL (150-450)
[2021-11-17] MEDS ORDERED: VANCOMYCIN 1,250 MG in SODIUM CHLORIDE 0.9% 250 ML IVPB SCH (09:00)
[2021-11-17] MEDS ORDERED: AZITHROMYCIN 500 MG TAB PO SCH (09:00)
--- NOTE | 2021-11-17 14:23 | P.PN ---
Subjective Progress Note Date: 11/17/21 (delayed charting seen at 0830) Principal diagnosis: lethargy Patient is a 30-year-old male with Down syndrome, GERD, Prior COVID in 05/2021, and thyroid dysfunction who presented to the hospital secondary to increased lethargy. In the ER he underwent an extensive evaluation. Initial vital signs were within normal limits but he did become hypotensive with a systolic blood pressure of 86 which responded to fluid bolus. Initial laboratory analysis showed platelet count of 105, carbon dioxide 31, but was otherwise unremarkable. TSH was normal, urinalysis without signs of infection, COVID and influenza testing were negative. Chest x-ray did reveal possible early right-sided infiltrate and patient does have a history of aspiration. KUB without acute process and CT head with no acute process. In the ER he was given a dose of Rocephin and Zithromax. He was started on IV fluids. His depakote level came back at >160 and ammonia was elevated. His depakote was held and he was started on lactulose. His blood cultures came back with GPC and ultimately strep. Patient seen and examined at bedside. He denies any chest pain, shortness of breath, cough. He states he is hungry and needs to go to the bathroom. General: ill appearing, no distress, appears at stated age Derm: warm, dry Head: atraumatic, normocephalic, symmetric Eyes: EOMI, no lid lag, anicteric sclera Mouth: no lip lesion, mucus membranes moist Cardiovascular: S1S2 reg, no murmur, positive posterior tibial pulse bilateral, Lungs: Decreased bs bilateral, no rhonchi, no rales , no accessory muscle use Abdominal: soft, nontender to palpation, no guarding, no appreciable organomegaly Ext: no gross muscle atrophy, no edema, no contractures Neuro: CN II-XI grossly intact, no focal neuro deficits Psych: Alert, oriented, flat affect Assessment/plan: Pneumonia with strep bacteremia Acute toxic encephalopathy Hypotension - IV fluids - rocpehin - Consult ID and Pulm - Speech eval in AM - Pulm hygeine - Repeat BC in AM - COVID and Flu negative Depakote toxicity Elevated ammonia due to depakot toxicity Thrombocyopenia - IV fluids - hold depakote - lactulose - repeat depakote level in AM - repeat Ammonia in AM - follow liver function - follow CBC no need for transfusion Downs syndrome with behavioral disturbances - zyprex, hold depakote until level is back Hypothyroidism - synthroid - TSH normal transitioned to in patient due to bacteremia and pneumonia with depakote toxicity. DVT prophylaxis: SCDs Discussed with: Patient, nursing, mother Anticipated discharge date: in 3-[address]: home A total of 35 minutes was spent on the care of this complex patient more than 50% of the time was spent in counseling and care coordination. Objective - Vital Signs Vital signs: Vital Signs Temp 98.0 F 11/17/21 08:00 Pulse 67 11/17/21 08:00 Resp 20 11/17/21 08:00 BP 109/70 11/17/21 08:00 Pulse Ox 91 L 11/17/21 08:00 Intake & Output 11/16/21 11/17/21 11/17/21 18:59 06:59 18:59 Weight 86.183 kg Other: Voiding Method Toilet # Voids 1 1 2 # Bowel Movements 1 - Labs CBC & Chem 7: 11/17/21 07:17 11/17/21 07:17 Labs: Abnormal Lab Results - Last 24 Hours (Table) 11/16/21 11/16/21 11/17/21 Range/Units 18:05 18:05 07:17 RBC 4.21 L (4.30-5.90) m/uL MCV 114.9 H D (80.0-100.0) fL MCH 36.3 H (25.0-35.0) pg RDW 15.9 H (11.5-15.5) % Plt Count 64 L (150-450) k/uL Macrocytosis Marked A Chloride (98-107) mmol/L Glucose (74-99) mg/dL Ammonia 65 H (<30) umol/L Valproic Acid 168.5 H* ug/mL 11/17/21 Range/Units 07:17 RBC (4.30-5.90) m/uL MCV (80.0-100.0) fL MCH (25.0-35.0) pg RDW (11.5-15.5) % Plt Count (150-450) k/uL Macrocytosis Chloride 109 H (98-107) mmol/L Glucose 110 H (74-99) mg/dL Ammonia (<30) umol/L Valproic Acid 132.2 H* ug/mL Microbiology - Last 24 Hours (Table) 11/16/21 14:00 Blood Culture Gram Stain - Preliminary Blood Blood Culture - Preliminary Streptococcus species 11/16/21 14:00 Blood Culture - Final Blood
[2021-11-17] MEDS: OLANZapine ODT 10 MG TAB PO SCH (20:01)
--- NOTE | 2021-11-17 21:29 | P.CONS ---
History of Present Illness - Reason for Consult Consult date: 11/17/21 Bacteremia Requesting physician: Aniyah Grider - Chief Complaint Increasing fatigue over 2 days - History of Present Illness Patient is a 30-year-old male with a past medical he significant for Down syndrome gastroesophageal reflux disease history of COVID-pneumonia in May 2021 patient was brought into the ER for evaluation of increasing lethargy in this patient symptom complaint was going on for due to before presentation to the hospital on arrival to the ER the patient was afebrile no fever had been recorded subsequently no significant hypoxemia or need for supplemental oxygen patient did have a normal white count with no left shift or lymphopenia patient did have a normal kidney function liver enzymes are normal urine has been negative Depakote level was elevated patient did have a negative COVID and influenza testing patient did have blood cultures drawn which came back positive with the Streptococcus species patient did have a chest x-ray increased density right medial lung base immediately developing infiltrate abdominal x-ray nonobstructive bowel gas pattern patient was initially treated with Rocephin Zithromax antibiotic instituted vancomycin because of the positive blood culture infectious disease was consulted for further management of antibiotic therapy most information has been obtained from review the chart as the patient not a reliable historian however the patient is considered to be high risk for aspiration and is being fed supervised by the nursing assistants teacher no vomiting or diarrhea has been reported Review of Systems Positive points has been mentioned in HPI complete review could not be obtained because of his underlying mental status Past Medical History Past Medical History: GERD/Reflux, Thyroid Disorder Additional Past Medical History / Comment(s): down syndrome, prior COVID, aspiration History of Any Multi-Drug Resistant Organisms: C-DIFF Year Discovered:: 02/06/2010 MDRO Source:: stool Past Surgical History: Appendectomy, Orthopedic Surgery Additional Past Surgical History / Comment(s): 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 Past Anesthesia/Blood Transfusion Reactions: No Reported Reaction Past Psychological History: Depression Additional Psychological History / Comment(s): down syndrome. Smoking Status: Never smoker Past Alcohol Use History: None Reported Past Drug Use History: None Reported - Past Family History Mother Family Medical History: No Reported History Father Family Medical History: Myocardial Infarction ([place]) Medications and Allergies Home Medications Medication Instructions Recorded Confirmed Type Cholecalciferol [Vitamin D3 (25 1,000 unit PO DAILY 11/25/15 11/16/21 History Mcg = 1000 Iu)] Clotrimazole Cream [Lotrimin Cream] 1 applic TOPICAL DAILY@0700 03/17/17 11/16/21 History Albuterol Nebulized [Ventolin 1.25 mg INHALATION RT-BID PRN 05/07/21 11/16/21 History Nebulized] Divalproex Sodium [Depakote 1,250 mg PO BID@0800,2000 05/07/21 11/16/21 History Sprinkle] FLUoxetine HCL [PROzac] 20 mg PO DAILY@0800 05/07/21 11/16/21 History Levothyroxine Sodium [Synthroid] 50 mcg PO DAILY@0800 05/07/21 11/16/21 History OLANZapine ODT [ZyPREXA Zydis] 10 mg PO HS@2100 05/07/21 11/16/21 History Albuterol Inhaler [Ventolin Hfa 1 puff INHALATION RT-Q4H PRN 11/16/21 11/16/21 History Inhaler] Allergies Allergy/AdvReac Type Severity Reaction Status Date / Time No Known Allergies Allergy Verified 11/16/21 11:50 Physical Exam Vitals: Vital Signs Temp Pulse Resp BP Pulse Ox 11/17/21 14:00 99.2 F 76 16 102/68 94 L 11/17/21 08:00 98.0 F 67 20 109/70 91 L 11/17/21 02:00 97.9 F 68 16 95/69 93 L 11/16/21 19:42 16 11/16/21 19:14 98.5 F 57 L 16 92/55 95 Intake and Output 11/17/21 11/17/21 11/17/21 06:59 14:59 22:59 Intake Total 1080 Balance 1080 Intake: Oral 1080 Other: # Voids 1 4 # Bowel Movements 1 6 GENERAL DESCRIPTION: Middle-aged male lying in bed, no distress. No tachypnea or accessory muscle of respiration use. HEENT: Shows Pallor , no scleral icterus. Oral mucous membrane is dry. No pharyngeal erythema or thrush NECK: Trachea central, no thyromegaly. LUNGS: Unlabored breathing. Decreased was on the base. No wheeze or crackle. HEART: S1, S2, regular rate and rhythm. No loud murmur ABDOMEN: Soft, no tenderness , guarding or rigidity, no organomegaly EXTREMITIES: No edema of feet. SKIN: No rash, no masses palpable. NEUROLOGICAL: The patient is awake, alert, oriented could not be determined because of mental status Results CBC & Chem 7: 11/17/21 07:17 11/17/21 07:17 Labs: Abnormal Lab Results - Last 24 Hours (Table) 11/16/21 11/16/21 11/17/21 Range/Units 18:05 18:05 07:17 RBC 4.21 L (4.30-5.90) m/uL MCV 114.9 H D (80.0-100.0) fL MCH 36.3 H (25.0-35.0) pg RDW 15.9 H (11.5-15.5) % Plt Count 64 L (150-450) k/uL Macrocytosis Marked A Chloride (98-107) mmol/L Glucose (74-99) mg/dL Ammonia 65 H (<30) umol/L Valproic Acid 168.5 H* ug/mL 11/17/21 Range/Units 07:17 RBC (4.30-5.90) m/uL MCV (80.0-100.0) fL MCH (25.0-35.0) pg RDW (11.5-15.5) % Plt Count (150-450) k/uL Macrocytosis Chloride 109 H (98-107) mmol/L Glucose 110 H (74-99) mg/dL Ammonia (<30) umol/L Valproic Acid 132.2 H* ug/mL Microbiology - Last 24 Hours (Table) 11/16/21 14:00 Blood Culture Gram Stain - Preliminary Blood Blood Culture - Preliminary Streptococcus species 11/16/21 14:00 Blood Culture - Final Blood Assessment and Plan (1) Bacteremia Current Visit: Yes Status: Acute Code(s): R78.81 - BACTEREMIA SNOMED Code(s): 6534091 Plan: 1patient presented to hospital with weakness lethargy in this patient did have a pulmonary infiltrate and now with a positive blood culture one of them is strep and the other is Staph aureus likely true bacteremia and a likely source being pneumonia as no other obvious focus in this patient with no evidence of any cellulitis or joint swelling and abdominal soft on clinical Examination 2-we will repeat blood cultures to document clearance of bacteremia 3-check a CRP and a procalcitonin level 4-vancomycin pharmacy to dose target trough of 15 while watching kidney function and vancomycin trough closely We will follow on clinical condition and cultures to further adjust medication if needed Thank you for this consultation will follow this patient along with you Time with Patient: Greater than 30
[2021-11-17] MEDS: VANCOMYCIN 1,250 MG in SODIUM CHLORIDE 0.9% 250 ML IVPB SCH (22:43)
[2021-11-18] MEDS: VANCOMYCIN 1,250 MG in SODIUM CHLORIDE 0.9% 250 ML IVPB SCH (06:01)
[2021-11-18 06:57] LABS: INR 1.1 (<1.2); Prothrombin Time 11.8 sec (9.0-12.0)
[2021-11-18 07:12] LABS: Anisocytosis Slight; HCT 44.1 % (39.0-53.0); HGB 14.1 gm/dL (13.0-17.5); MCH 35.3 pg (25.0-35.0); MCHC 32.1 g/dL (31.0-37.0); MCV 110.2 fL (80.0-100.0); Macrocytosis Marked; RDW 16.7 % (11.5-15.5); WBC 7.9 k/uL (3.8-10.6)
[2021-11-18 07:14] LABS: ALT 12 U/L (4-49); AST 24 U/L (17-59); African American GFR (CKD) >90 (>60 ml/min/1.73 sqM); Albumin 2.5 g/dL (3.5-5.0); Albumin/Globulin Ratio 0.8; Alkaline Phosphatase 65 U/L (38-126); Anion Gap 6 mmol/L; Blood Urea Nitrogen 7 mg/dL (9-20); Calcium 8.6 mg/dL (8.4-10.2); Carbon Dioxide 26 mmol/L (22-30); Chloride 109 mmol/L (98-107); Globulin 3.1 g/dL; Glucose 81 mg/dL (74-99); Non-African American GFR(CKD) >90 (>60 ml/min/1.73 sqM); Potassium 3.7 mmol/L (3.5-5.1); Sodium 141 mmol/L (137-145); Total Bilirubin 0.4 mg/dL (0.2-1.3); Total Protein 5.6 g/dL (6.3-8.2)
[2021-11-18 07:21] LABS: Platelet Count 82 k/uL (150-450)
[2021-11-18 08:07] LABS: C Reactive Protein 13.5 mg/dL (<1.0)
[2021-11-18 09:33] LABS: Erythrocyte Sedimentation Rate 9 mm/hr (0-15)
[2021-11-18] MEDS: LACTULOSE 20 GM/30 ML CUP PO SCH ×2 (11:00→19:40)
[2021-11-18] MEDS: LEVOTHYROXINE 50 MCG TAB PO SCH (11:00)
[2021-11-18] MEDS: FLUoxetine HCL 20 MG CAP PO SCH (11:00)
--- NOTE | 2021-11-18 14:37 | P.CNPUL ---
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 Patient follows with Dr. Duarte in the pulmonary clinic. We saw him back in May 2021 when he had COVID-19 pneumonia and required hospitalization. Of note patient was vaccinated at the time of his infection with Pfizer vaccine, but he has not been boostered. Patient had recovered after that episode. On 11/16/2021 patient was brought in to the emergency department by his family and family was concerned about patient had been increasing fatigue over the past 2 days. He has been sleeping a lot. Patient is a poor historian although at times he is able to give some basic answers. Patient was complaining of some back discomfort. No confusion, and no focal weakness was noted. Chest x-ray showed increased density in the right medial lung base that could reflect developing infiltrate. Admission lab evaluation showed normal white count of 8.4, hemoglobin of 13.4, electrolytes and renal profile were unremarkable with the exception of CO2 which was elevated at 31, lactic acid is 1.4, LFTs are within normal limits, troponin was negative 1 at less than 0.012, CRP was 13.5, pro calcitonin level was low at 0.13, urinalysis showed 1+ protein, 1+ ketones, occasional mucus but no clear evidence of infection, he was tested for COVID-19 and influenza A and B and was found to be negative. Brain CT was completed in regards to complaints of weakness, and showed no acute intracranial process. Patient was placed on azithromycin and Rocephin initially in the emergency department. His blood cultures from 11/16/2021 showed alphahemolytic strept ococcus, and Staphylococcus epidermidis, on the blood culture from the same date showed Staphylococcus aureus, final cultures are pending, patient did receive a dose of vancomycin, ID service has been consulted and patient is currently on Kefzol. he is resting comfortably, doesn't appear to be in any acute distress, room air pulse ox is 94%, hemodynamically stable, no fever or chills. No chest pain, no nausea or vomiting. Follow-up chest x-ray today showing perihilar and basilar infiltrate, unchanged compared admission chest x-ray Review of Systems All systems: negative Constitutional: Reports fatigue, Reports malaise, Reports weakness, Denies chills, Denies fever Eyes: denies blurred vision, denies pain Ears, nose, mouth and throat: Denies headache, Denies sore throat Cardiovascular: Denies chest pain, Denies shortness of breath Respiratory: Denies cough Gastrointestinal: Denies abdominal pain, Denies diarrhea, Denies nausea, Denies vomiting Musculoskeletal: Denies myalgias Integumentary: Denies pruritus, Denies rash Neurological: Denies numbness, Denies weakness Psychiatric: Denies anxiety, Denies depression Endocrine: Denies fatigue, Denies weight change Past Medical History Past Medical History: GERD/Reflux, Thyroid Disorder Additional Past Medical History / Comment(s): down syndrome, prior COVID, aspiration History of Any Multi-Drug Resistant Organisms: C-DIFF Date of last positivie culture/infection: 02/06/2010 MDRO Source:: stool Past Surgical History: Appendectomy, Orthopedic Surgery Additional Past Surgical History / Comment(s): 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 Past Anesthesia/Blood Transfusion Reactions: No Reported Reaction Past Psychological History: Depression Additional Psychological History / Comment(s): down syndrome. Smoking Status: Never smoker Past Alcohol Use History: None Reported Past Drug Use History: None Reported - Past Family History Mother Family Medical History: No Reported History Father Family Medical History: Myocardial Infarction ([place]) Medications and Allergies Home Medications Medication Instructions Recorded Confirmed Type Cholecalciferol [Vitamin D3 (25 1,000 unit PO DAILY 11/25/15 11/16/21 History Mcg = 1000 Iu)] Clotrimazole Cream [Lotrimin Cream] 1 applic TOPICAL DAILY@0700 03/17/17 11/16/21 History Albuterol Nebulized [Ventolin 1.25 mg INHALATION RT-BID PRN 05/07/21 11/16/21 History Nebulized] Divalproex Sodium [Depakote 1,250 mg PO BID@0800,199905/07/21 11/16/21 History Sprinkle] FLUoxetine HCL [PROzac] 20 mg PO DAILY@0800 05/07/21 11/16/21 History Levothyroxine Sodium [Synthroid] 50 mcg PO DAILY@0800 05/07/21 11/16/21 History OLANZapine ODT [ZyPREXA Zydis] 10 mg PO HS@2100 05/07/21 11/16/21 History Albuterol Inhaler [Ventolin Hfa 1 puff INHALATION RT-Q4H PRN 11/16/21 11/16/21 History Inhaler] Allergies Allergy/AdvReac Type Severity Reaction Status Date / Time No Known Allergies Allergy Verified 11/16/21 11:50 Physical Exam Vitals: Vital Signs Temp Pulse Resp BP Pulse Ox 11/18/21 13:45 97.5 F L 94 18 109/71 94 L 11/18/21 07:35 98.5 F 62 19 105/61 92 L 11/18/21 00:57 98.1 F 73 16 115/68 97 11/17/21 19:34 16 11/17/21 19:18 98.8 F 61 14 101/65 93 L Intake and Output 11/17/21 11/18/21 11/18/21 22:59 06:59 14:59 Other: Voiding Method Toilet # Voids 3 # Bowel Movements 1 GENERAL EXAM: 30-year-old mentally handicapped white male patient, sitting up in the recliner, on room air with a pulse ox of 94% Patient is able to provide basic verbal responses, however he is a poor historian, and most the history was obtained from the chart HEAD: Normocephalic/atraumatic. EYES: Normal reaction of pupils, equal size. Conjunctiva pink, sclera white. NOSE: Clear with pink turbinates. THROAT: No erythema or exudates. NECK: No masses, no JVD, no thyroid enlargement, no adenopathy. CHEST: No chest wall deformity. Symmetrical expansion. LUNGS: Equal air entry with bilateral crackles CVS: Regular rate and rhythm, normal S1 and S2, no gallops, no murmurs, no rubs ABDOMEN: Soft, nontender. No hepatosplenomegaly, normal bowel sounds, no guarding or rigidity. EXTREMITIES: No clubbing, no edema, no cyanosis, 2+ pulses and upper and lower extremities. MUSCULOSKELETAL: Muscle strength and tone normal. SPINE: No scoliosis or deformity SKIN: No rashes CENTRAL NERVOUS SYSTEM: Alert and oriented -2. No focal deficits, tone is normal in all 4 extremities. PSYCHIATRIC: Alert and oriented -2. Appropriate affect. Intact judgment and insight. Results - Laboratory Findings CBC and BMP: 11/18/21 06:27 11/18/21 06:27 PT/INR, D-dimer PT 11.8 sec (9.0-12.0) 11/18/21 06:27 INR 1.1 (<1.2) 11/18/21 06:27 Abnormal lab findings: Abnormal Labs 11/16/21 11/16/21 11/16/21 11:40 11:40 11:40 RBC 3.85 L MCV 109.2 H MCH RDW 15.9 H Plt Count 105 L Macrocytosis Marked A APTT 32.1 H Chloride Carbon Dioxide BUN Glucose Ammonia C-Reactive Protein Total Protein Albumin Procalcitonin Ur Specific [place] 1.037 H Urine Protein 1+ H Urine Ketones 1+ H Urine Mucus Occasional H Valproic Acid 11/16/21 11/16/21 11/16/21 11:40 18:05 18:05 RBC MCV MCH RDW Plt Count Macrocytosis APTT Chloride Carbon Dioxide 31 H BUN Glucose Ammonia 65 H C-Reactive Protein Total Protein 6.2 L Albumin 3.0 L Procalcitonin Ur Specific [place] Urine Protein Urine Ketones Urine Mucus Valproic Acid 168.5 H* 11/17/21 11/17/21 11/18/21 07:17 07:17 06:27 RBC 4.21 L MCV 114.9 H D MCH 36.3 H RDW 15.9 H Plt Count 64 L Macrocytosis Marked A APTT Chloride 109 H Carbon Dioxide BUN Glucose 110 H Ammonia C-Reactive Protein Total Protein Albumin Procalcitonin 0.13 H Ur Specific [place] Urine Protein Urine Ketones Urine Mucus Valproic Acid 132.2 H* 11/18/21 11/18/21 11/18/21 06:27 06:27 06:27 RBC 4.00 L MCV 110.2 H MCH 35.3 H RDW 16.7 H Plt Count 82 L Macrocytosis Marked A APTT Chloride 109 H Carbon Dioxide BUN 7 L Glucose Ammonia 31 H C-Reactive Protein 13.5 H Total Protein 5.6 L Albumin 2.5 L Procalcitonin Ur Specific [place] Urine Protein Urine Ketones Urine Mucus Valproic Acid - Diagnostic Findings Chest x-ray: report reviewed, image reviewed Assessment and Plan Plan: Assessment: #1. Acute community acquired pneumonia #2. Alpha streptococcal bacteremia and staph aureus bacteremia, final cultures are pending. Streptococcal bacteremia likely related to acute community acqui red pneumonia. Currently on Kefzol, patient also received IV vancomycin, and azithromycin and Rocephin in the emergency department #3. Weakness, fatigue related to the above #4. History of COVID-19 pneumonia in May 2021, recovered #5. Hypothyroidism #6. Down syndrome #7. GERD/reflux #8. Nonsmoker #9. Depression Plan: Continue antibiotics per ID service recommendations Clinical does not appear to be in any acute distress We'll try to obtain sputum for culture Continue to follow his clinical course closely GI and DVT prophylaxis Maintain supervision and assistance with meal as needed Maintain aspiration precautions I have personally seen and examined the patient, performed the documentation and the assessment and plan as written. Number of minutes spent on the visit: 10 Time with Patient: Greater than 30
--- NOTE | 2021-11-18 17:11 | P.PN ---
Subjective Progress Note Date: 11/18/21 (delayed charting seen at 1145) Principal diagnosis: lethargy Patient is a 30-year-old male with Down syndrome, GERD, Prior COVID in 05/2021, and thyroid dysfunction who presented to the hospital secondary to increased lethargy. In the ER he underwent an extensive evaluation. Initial vital signs were within normal limits but he did become hypotensive with a systolic blood pressure of 86 which responded to fluid bolus. Initial laboratory analysis showed platelet count of 105, carbon dioxide 31, but was otherwise unremarkable. TSH was normal, urinalysis without signs of infection, COVID and influenza testing were negative. Chest x-ray did reveal possible early right-sided infiltrate and patient does have a history of aspiration. KUB without acute process and CT head with no acute process. In the ER he was given a dose of Rocephin and Zithromax. He was started on IV fluids. His depakote level came back at >160 and ammonia was elevated. His depakote was held and he was started on lactulose. His blood cultures came back with GPC and ultimately strep. Patient seen and examined at bedside. He denies any chest pain, shortness of breath, cough. Wants his [employer] General: ill appearing, no distress, appears at stated age Derm: warm, dry Head: atraumatic, normocephalic, symmetric Eyes: EOMI, no lid lag, anicteric sclera Mouth: no lip lesion, mucus membranes moist Cardiovascular: S1S2 reg, no murmur, positive posterior tibial pulse bilateral, Lungs: Decreased bs bilateral, no rhonchi, no rales , no accessory muscle use Abdominal: soft, nontender to palpation, no guarding, no appreciable organomegaly Ext: no gross muscle atrophy, no edema, no contractures Neuro: CN II-XI grossly intact, no focal neuro deficits Psych: Alert, oriented, flat affect Assessment/plan: Pneumonia with bacteremia- inconsistent results from [facility] await further risk stratification Acute toxic encephalopathy Hypotension Aspiration - IV fluids - rocpehin - Consult ID and Pulm - Speech spoke with mom, not interested in PEG has seen speech multiple times aware of risk. Will continue chopped diet. - Pulm hygeine - Repeat BC in AM - COVID and Flu negative Depakote toxicity, resolved Elevated ammonia due to depakot toxicity Thrombocyopenia - IV fluids - hold depakote - lactulose until ammonia is normalized - repeat Ammonia in AM - follow liver function - follow CBC no need for transfusion Downs syndrome with behavioral disturbances - zyprex - avoid depakote Hypothyroidism - synthroid - TSH normal Mother updated. She would like once daily IV abx if able as then she can hire a nurse to come out to the house. Please call her with daily updates. DVT prophylaxis: SCDs Discussed with: Patient, nursing, mother Anticipated discharge date: in 2-[address]: home A total of 35 minutes was spent on the care of this complex patient more than 50% of the time was spent in counseling and care coordination. Objective - Vital Signs Vital signs: Vital Signs Temp 97.5 F L 11/18/21 13:45 Pulse 94 11/18/21 13:45 Resp 18 11/18/21 13:45 BP 109/71 11/18/21 13:45 Pulse Ox 94 L 11/18/21 13:45 Intake & Output 11/17/21 11/18/21 11/18/21 18:59 06:59 18:59 Intake Total 1080 Balance 1080 Intake: Oral 1080 Other: Voiding Method Toilet # Voids 4 3 1 # Bowel Movements 6 1 - Labs CBC & Chem 7: 11/18/21 06:27 11/18/21 06:27 Labs: Abnormal Lab Results - Last 24 Hours (Table) 11/18/21 11/18/21 11/18/21 Range/Units 06:27 06:27 06:27 RBC 4.00 L (4.30-5.90) m/uL MCV 110.2 H (80.0-100.0) fL MCH 35.3 H (25.0-35.0) pg RDW 16.7 H (11.5-15.5) % Plt Count 82 L (150-450) k/uL Macrocytosis Marked A Chloride 109 H (98-107) mmol/L BUN 7 L (9-20) mg/dL Ammonia (<30) umol/L C-Reactive Protein 13.5 H (<1.0) mg/dL Total Protein 5.6 L (6.3-8.2) g/dL Albumin 2.5 L (3.5-5.0) g/dL Procalcitonin 0.13 H (0.02-0.09) ng/mL 11/18/21 Range/Units 06:27 RBC (4.30-5.90) m/uL MCV (80.0-100.0) fL MCH (25.0-35.0) pg RDW (11.5-15.5) % Plt Count (150-450) k/uL Macrocytosis Chloride (98-107) mmol/L BUN (9-20) mg/dL Ammonia 31 H (<30) umol/L C-Reactive Protein (<1.0) mg/dL Total Protein (6.3-8.2) g/dL Albumin (3.5-5.0) g/dL Procalcitonin (0.02-0.09) ng/mL Microbiology - Last 24 Hours (Table) 11/16/21 14:00 Blood Culture Gram Stain - Preliminary Blood Blood Culture - Preliminary Alpha Hemolytic Streptococcus Staphylococcus epidermidis 11/16/21 14:15 Blood Culture Gram Stain - Preliminary Blood Blood Culture - Preliminary Staphylococcus aureus 11/16/21 14:15 Blood Culture - Final Blood
[2021-11-18] MEDS: OLANZapine ODT 10 MG TAB PO SCH (19:40)
[2021-11-18] MEDS: ACETAMINOPHEN TAB 325 MG TAB PO PRN (20:41)
--- NOTE | 2021-11-18 21:02 | P.PN ---
Subjective Progress Note Date: 11/18/21 Principal diagnosis: MSSA bacteremia Patient is a 30-year-old male with a past medical history significant for Down syndrome presenting to the hospital with weakness pathology has been diagnosed with pneumonia and evidence of MSSA bacteremia. On today's evaluation that is 11/18/2021, the patient is afebrile, the patient is breathing comfortably on room air, no vomiting no diarrhea or any other changes reported by nursing staff patient himself cannot provide any history Objective - Vital Signs Vital signs: Vital Signs Temp 98.5 F 11/18/21 07:35 Pulse 62 11/18/21 07:35 Resp 19 11/18/21 07:35 BP 105/61 11/18/21 07:35 Pulse Ox 92 L 11/18/21 07:35 Intake & Output 11/17/21 11/18/21 11/18/21 18:59 06:59 18:59 Intake Total 1080 Balance 1080 Intake: Oral 1080 Other: Voiding Method Toilet # Voids 4 3 # Bowel Movements 6 1 - Exam GENERAL DESCRIPTION: Middle-age lying in bed in no distress RESPIRATORY SYSTEM: Unlabored breathing , decreased breath sounds at bases HEART: S1 S2 regular rate and rhythm , ABDOMEN: Soft , no tenderness EXTREMITIES: No edema feet - Labs CBC & Chem 7: 11/18/21 06:27 11/18/21 06:27 Labs: Abnormal Lab Results - Last 24 Hours (Table) 11/18/21 11/18/21 11/18/21 Range/Units 06:27 06:27 06:27 RBC 4.00 L (4.30-5.90) m/uL MCV 110.2 H (80.0-100.0) fL MCH 35.3 H (25.0-35.0) pg RDW 16.7 H (11.5-15.5) % Plt Count 82 L (150-450) k/uL Macrocytosis Marked A Chloride 109 H (98-107) mmol/L BUN 7 L (9-20) mg/dL Ammonia (<30) umol/L C-Reactive Protein 13.5 H (<1.0) mg/dL Total Protein 5.6 L (6.3-8.2) g/dL Albumin 2.5 L (3.5-5.0) g/dL Procalcitonin 0.13 H (0.02-0.09) ng/mL 11/18/21 Range/Units 06:27 RBC (4.30-5.90) m/uL MCV (80.0-100.0) fL MCH (25.0-35.0) pg RDW (11.5-15.5) % Plt Count (150-450) k/uL Macrocytosis Chloride (98-107) mmol/L BUN (9-20) mg/dL Ammonia 31 H (<30) umol/L C-Reactive Protein (<1.0) mg/dL Total Protein (6.3-8.2) g/dL Albumin (3.5-5.0) g/dL Procalcitonin (0.02-0.09) ng/mL Microbiology - Last 24 Hours (Table) 11/16/21 14:00 Blood Culture Gram Stain - Preliminary Blood Blood Culture - Preliminary Streptococcus species 11/16/21 14:15 Blood Culture Gram Stain - Preliminary Blood Blood Culture - Preliminary Staphylococcus aureus 11/16/21 14:15 Blood Culture - Final Blood 11/16/21 14:00 Blood Culture - Final Blood Assessment and Plan (1) Bacteremia Current Visit: Yes Status: Acute Code(s): R78.81 - BACTEREMIA SNOMED Code(s): 3446919 Plan: 1patient presented to hospital with weakness lethargy in this patient did have a pulmonary infiltrate and now with a positive blood culture one of them is strep and the other is Staph aureus likely true bacteremia and a likely source being pneumonia as no other obvious focus in this patient with no evidence of any cellulitis or joint swelling and abdominal soft on clinical Examination 2-blood cultures has been repeated to document clearance of bacteremia 3-blood culture finalized MSSA discontinue vancomycin and start the patient cefazolin 2 g every 8 hours Time with Patient: Less than 30
[2021-11-18] MEDS: SODIUM CHLORIDE 0.9% 1,000 ML IV SCH (21:13)
[2021-11-19] MEDS: SODIUM CHLORIDE 0.9% 1,000 ML IV SCH ×2 (00:50→14:45)
[2021-11-19] MEDS ORDERED: VANCOMYCIN TROUGH DUE 1 EACH MISC MISCELLANE ONE (05:00)
[2021-11-19] MEDS: FLUoxetine HCL 20 MG CAP PO SCH (07:53)
[2021-11-19] MEDS: LEVOTHYROXINE 50 MCG TAB PO SCH (07:53)
[2021-11-19] MEDS: LACTULOSE 20 GM/30 ML CUP PO SCH (07:53)
[2021-11-19 07:54] LABS: African American GFR (CKD) >90 (>60 ml/min/1.73 sqM); Anion Gap 5 mmol/L; Blood Urea Nitrogen 8 mg/dL (9-20); Calcium 8.3 mg/dL (8.4-10.2); Carbon Dioxide 27 mmol/L (22-30); Chloride 107 mmol/L (98-107); Glucose 79 mg/dL (74-99); Non-African American GFR(CKD) >90 (>60 ml/min/1.73 sqM); Sodium 139 mmol/L (137-145)
[2021-11-19 08:04] LABS: Anisocytosis Slight; HCT 44.3 % (39.0-53.0); HGB 14.2 gm/dL (13.0-17.5); MCH 35.6 pg (25.0-35.0); MCHC 32.1 g/dL (31.0-37.0); MCV 110.9 fL (80.0-100.0); Macrocytosis Marked; Mean Platelet Volume 11.4; RDW 16.7 % (11.5-15.5); WBC 8.7 k/uL (3.8-10.6)
[2021-11-19 08:40] LABS: Large Platelets Present; Platelet Count 85 k/uL (150-450); Polychromasia Present
--- NOTE | 2021-11-19 12:16 | P.PN ---
Subjective Progress Note Date: 11/19/21 Principal diagnosis: Pneumonia. This is a 30-year-old mentally handicapped male patient with history of Down syndrome, hypothyroidism, depression, GERD, and previous history of pneumonia. Patient follows with Dr. Duarte in the pulmonary clinic. We saw him back in May 2021 when he had COVID-19 pneumonia and required hospitalization. Of note patient was vaccinated at the time of his infection with Pfizer vaccine, but he has not been boostered. Patient had recovered after that episode. On 11/16/2021 patient was brought in to the emergency department by his family and family was concerned about patient had been increasing fatigue over the past 2 days. He has been sleeping a lot. Patient is a poor historian although at times he is able to give some basic answers. Patient was complaining of some back discomfort. No confusion, and no focal weakness was noted. Chest x-ray showed increased density in the right medial lung base that could reflect developing infiltrate. Admission lab evaluation showed normal white count of 8.4, hemoglobin of 13.4, electrolytes and renal profile were unremarkable with the exception of CO2 which was elevated at 31, lactic acid is 1.4, LFTs are within normal limits, troponin was negative 1 at less than 0.012, CRP was 13.5, pro calcitonin level was low at 0.13, urinalysis showed 1+ protein, 1+ ketones, occasional mucus but no clear evidence of infection, he was tested for COVID-19 and influenza A and B and was found to be negative. Brain CT was completed in regards to complaints of weakness, and showed no acute intracranial process. Patient was placed on azithromycin and Rocephin initially in the emergency department. His blood cultures from 11/16/2021 showed alphahemolytic streptococcus, and Staphylococcus epidermidis, on the blood culture from the same date showed Staphylococcus aureus, final cultures are pending, patient did receive a dose of vancomycin, ID service has been consulted and patient is currently on Kefzol. he is resting comfortably, doesn't appear to be in any acute distress, room air pulse ox is 94%, hemodynamically stable, no fever or chills. No chest pain, no nausea or vomiting. Follow-up chest x-ray today showing perihilar and basilar infiltrate, unchanged compared admission chest x- ray Progress note dated 11/19/2021. 30-year-old mentally handicapped male patient, with a history of Down syndrome, hypothyroidism, depression, GERD, and prior episodes of aspiration pneumonia. The patient was admitted to the hospital with a diagnosis of aspiration pneumonia. Clinically, he seems be doing relatively well. He is on room air. Labs today include a white count of 8.7, he will 14.2, hematocrit 44.3, and platelet count 85,000. Sodium, potassium, chloride, CO2, anion gap, BUN, and creatinine are all normal. Microbiologic studies are showing evidence of alpha- hemolytic strep in the blood from November 16, and staph aureus in the blood from November 16. The patient is currently on Ancef as per infectious diseases. He is also on breathing treatments. Objective - Vital Signs Vital signs: Vital Signs Temp 97.9 F 11/19/21 07:43 Pulse 55 L 11/19/21 07:43 Resp 18 11/19/21 07:43 BP 105/75 11/19/21 07:43 Pulse Ox 91 L 11/19/21 07:43 Intake & Output 11/18/21 11/19/21 11/19/21 18:59 06:59 18:59 Intake Total 650 825 Balance 650 825 Intake: Intake, IV Titration 825 Amount Sodium Chloride 0.9% 1, 825 000 ml @ 75 mls/hr IV . [id number] [facility] Rx#:[id number] Oral 650 Other: Voiding Method Toilet Urinal # Voids 1 3 1 # Bowel Movements 1 1 - Exam No acute distress, oriented 3. Currently on room air. No conversational dyspnea or use of accessory muscles. HEENT examination is grossly unremarkable. Neck supple. Full range of motion. No adenopathy thyromegaly or neck vein distention. Cardiovascular examination reveals regular rhythm rate. S1-S2 normal. No S3 or S4. No discernible murmur noted. Heart rate 60 bpm. Lungs reveal scattered bilateral rhonchi. No wheezes or crackles. Breath sounds equal. Saturations are 91% on room air. Abdomen soft bowel sounds are heard. No masses or tenderness. Extremities are intact. No cyanosis clubbing or edema. Skin is without rash or lesion. Neurologic examination is brief but nonfocal. - Labs CBC & Chem 7: 11/19/21 07:28 11/19/21 07:28 Labs: Abnormal Lab Results - Last 24 Hours (Table) 11/19/21 11/19/21 Range/Units 07:28 07:28 RBC 4.00 L (4.30-5.90) m/uL MCV 110.9 H (80.0-100.0) fL MCH 35.6 H (25.0-35.0) pg RDW 16.7 H (11.5-15.5) % Plt Count 85 L (150-450) k/uL Macrocytosis Marked A BUN 8 L (9-20) mg/dL Calcium 8.3 L (8.4-10.2) mg/dL Microbiology - Last 24 Hours (Table) 11/16/21 14:00 Blood Culture Gram Stain - Final Blood Blood Culture - Final Alpha Hemolytic Streptococcus Staphylococcus epidermidis 11/18/21 06:27 Blood Culture - Preliminary Blood No Growth after 24 hours Assessment and Plan Assessment: Acute pneumonia, likely related to underlying aspiration. Positive blood cultures for alpha-hemolytic streptococcal infection and staph aureus. History of COVID 19 pneumonia, May 2021, resolved. Hypothyroidism. Down syndrome. GERD. Nonsmoker. Depression. Plan: Plan dated 11/19/2021. The patient appears to be doing reasonably well. He is currently on room air. Saturations are in the low 90s. He remains on Ancef. He has been seen by infectious diseases. Blood cultures show evidence of both alpha-hemolytic streptococcal infection and staph aureus infection. We will continue to follow make recommendations where appropriate. Prognosis is guarded. Time with Patient: Less than 30
--- NOTE | 2021-11-19 15:13 | P.PN ---
Subjective Principal diagnosis: 30-year-old male with Down syndrome presented in the emergency department formulation of lethargy. Found to be hypotensive responded well to IV fluids. Patient found to have right-sided pneumonia possibly aspiration and blood cultures from 11/16 positive for Staphylococcus epidermidis and also hemolytic streptococcus; he has been on various antibiotics and now switched to cefazolin by infectious disease. This morning he is doing quite well. He is ambulatory. He remains afebrile. He lethargy has resolved. He has no respiratory or GI complaints Objective - Vital Signs Vital signs: Vital Signs Temp 97.9 F 11/19/21 07:43 Pulse 55 L 11/19/21 07:43 Resp 18 11/19/21 07:43 BP 105/75 11/19/21 07:43 Pulse Ox 91 L 11/19/21 07:43 Intake & Output 11/18/21 11/19/21 11/19/21 18:59 06:59 18:59 Intake Total 650 825 Balance 650 825 Intake: Intake, IV Titration 825 Amount Sodium Chloride 0.9% 1, 825 000 ml @ 75 mls/hr IV . [id number] [facility] Rx#:[id number] Oral 650 Other: Voiding Method Toilet Urinal # Voids 1 3 1 # Bowel Movements 1 1 - Exam Patient is awake and alert following commands moving up in distress Head and neck: Anicteric sclera mucosa without any lesions no neck masses no JVD Cardiovascular: S1S2 reg, no murmur, positive posterior tibial pulse bilateral, Lungs: Decreased bs bilateral, no rhonchi, no rales , no accessory muscle use Abdominal: soft, nontender to palpation, no guarding, no appreciable organomegaly Ext: no gross muscle atrophy, no edema, no contractures Neuro: CN II-XI grossly intact, no focal neuro deficits - Labs CBC & Chem 7: 11/19/21 07:28 11/19/21 07:28 Labs: Abnormal Lab Results - Last 24 Hours (Table) 11/19/21 11/19/21 Range/Units 07:28 07:28 RBC 4.00 L (4.30-5.90) m/uL MCV 110.9 H (80.0-100.0) fL MCH 35.6 H (25.0-35.0) pg RDW 16.7 H (11.5-15.5) % Plt Count 85 L (150-450) k/uL Macrocytosis Marked A BUN 8 L (9-20) mg/dL Calcium 8.3 L (8.4-10.2) mg/dL Microbiology - Last 24 Hours (Table) 11/16/21 14:00 Blood Culture Gram Stain - Final Blood Blood Culture - Final Alpha Hemolytic Streptococcus Staphylococcus epidermidis 11/18/21 06:27 Blood Culture - Preliminary Blood No Growth after 24 hours Assessment and Plan Plan: #Sepsis due to Pneumonia with bacteremia Possibly component of aspiration pneumonia Blood cultures 11/16: Staph epidermidis and alphahemolytic streptococcus Blood cultures 11/18: No growth to date Infectious disease and pulmonary following Started on cefazolin 2 g every 8 hours Clinically improving, afebrile with normal white blood cell count Home antibiotics to be arranged as per patient's mother preference Continue with aspiration precautions, speech therapy monitoring swallowing function #Acute toxic metabolic encephalopathy Due to Depakote toxicity and resulting hyperammonemia Depakote discontinued, levels normalized #Thrombocyopenia Potentially related to sepsis and Depakote toxicity Level is improving Liver enzymes normal, hemoglobin stable, renal function stable No exposure to heparin products recently Continue to monitor We'll needs CBC in 1-2 weeks outpatient and further workup outpatient if needed Downs syndrome with behavioral disturbances - zyprex - avoid depakote Hypothyroidism - synthroid - TSH normal Disposition: Home with home healthcare services once IV antibiotics arranged
[2021-11-19] MEDS: OLANZapine ODT 10 MG TAB PO SCH (20:03)
[2021-11-19] MEDS: ACETAMINOPHEN TAB 325 MG TAB PO PRN (20:03)
--- NOTE | 2021-11-19 20:57 | P.PN ---
Subjective Progress Note Date: 11/19/21 Principal diagnosis: MSSA bacteremia Patient is a 30-year-old male with a past medical history significant for Down syndrome presenting to the hospital with weakness pathology has been diagnosed with pneumonia and evidence of MSSA bacteremia. On today's evaluation that is 11/19/2021, the patient remains to be afebrile, the patient is breathing comfortably on room air, no vomiting no diarrhea has been reported by nursing staff, patient not a good historian Objective - Vital Signs Vital signs: Vital Signs Temp 97.9 F 11/19/21 07:43 Pulse 55 L 11/19/21 07:43 Resp 18 11/19/21 07:43 BP 105/75 11/19/21 07:43 Pulse Ox 91 L 11/19/21 07:43 Intake & Output 11/18/21 11/19/21 11/19/21 18:59 06:59 18:59 Intake Total 650 825 Balance 650 825 Intake: Intake, IV Titration 825 Amount Sodium Chloride 0.9% 1, 825 000 ml @ 75 mls/hr IV . [id number] [facility] Rx#:[id number] Oral 650 Other: Voiding Method Toilet Urinal # Voids 1 3 1 # Bowel Movements 1 1 - Exam GENERAL DESCRIPTION: Middle-age lying in bed in no distress RESPIRATORY SYSTEM: Unlabored breathing , decreased breath sounds at bases HEART: S1 S2 regular rate and rhythm , ABDOMEN: Soft , no tenderness EXTREMITIES: No edema feet - Labs CBC & Chem 7: 11/19/21 07:28 11/19/21 07:28 Labs: Abnormal Lab Results - Last 24 Hours (Table) 11/19/21 11/19/21 Range/Units 07:28 07:28 RBC 4.00 L (4.30-5.90) m/uL MCV 110.9 H (80.0-100.0) fL MCH 35.6 H (25.0-35.0) pg RDW 16.7 H (11.5-15.5) % Plt Count 85 L (150-450) k/uL Macrocytosis Marked A BUN 8 L (9-20) mg/dL Calcium 8.3 L (8.4-10.2) mg/dL Microbiology - Last 24 Hours (Table) 11/16/21 14:00 Blood Culture Gram Stain - Final Blood Blood Culture - Final Alpha Hemolytic Streptococcus Staphylococcus epidermidis 11/18/21 06:27 Blood Culture - Preliminary Blood No Growth after 24 hours Assessment and Plan (1) Bacteremia Current Visit: Yes Status: Acute Code(s): R78.81 - BACTEREMIA SNOMED Code(s): 9235017 Plan: 1patient presented to hospital with weakness lethargy in this patient did have a pulmonary infiltrate and now with a positive blood culture one of them is strep and the other is Staph aureus likely true bacteremia and a likely source being pneumonia as no other obvious focus in this patient with no evidence of any cellulitis or joint swelling and abdominal soft on clinical Examination 2-blood cultures is becoming back positive as gram-positive cocci will wait for any sensitivity blood culture will be repeated today as well as tomorrow 3-initial blood culture finalized MSSA source likely pneumonia continue with cefazolin 2 g every 8 hours Time with Patient: Less than 30
[2021-11-20] MEDS: FLUoxetine HCL 20 MG CAP PO SCH (07:58)
[2021-11-20] MEDS: LEVOTHYROXINE 50 MCG TAB PO SCH (07:58)
--- NOTE | 2021-11-20 10:01 | XR ---
EXAMINATION TYPE: XR chest 1V portable DATE OF EXAM: 11/20/2021 COMPARISON: Chest x-ray 11/17/2021 HISTORY: Pneumonia TECHNIQUE: Single frontal view of the chest is obtained. FINDINGS: Bilateral airspace disease is present. No evident pneumothorax or pleural effusion. Cardia c mediastinal silhouette is within normal limits. Bones are unchanged. IMPRESSION: Findings consistent with pneumonia
[2021-11-20 10:35] LABS: HCT 39.9 % (39.6-50.0); HGB 12.9 g/dL (13.0-17.0); MCH 34.7 pg (27.0-32.0); MCHC 32.3 g/dL (32.0-37.0); MCV 107.3 fL (80.0-97.0); Mean Platelet Volume 12.7 fL (9.5-12.2); NRBC Per 100 WBC 0 /100 WBCS (0.0-0.0); Platelet Count 131 X 10*3/uL (140-440); RBC 3.72 X 10*6/uL (4.40-5.60); RDW 16.5 % (11.5-14.5); WBC 6.95 X 10*3/uL (4.50-10.00)
[2021-11-20 10:50] LABS: African American GFR (CKD) 131.7 (60.0-200.0); Albumin 3.1 g/dL (3.8-4.9); Albumin/Globulin Ratio 1.04 (1.60-3.17); BUN/Creat Ratio 11.39 Ratio (12.00-20.00); Blood Urea Nitrogen 10.3 mg/dL (9.0-27.0); Calcium 8.9 mg/dL (8.7-10.3); Carbon Dioxide 24.4 mmol/L (20.0-27.5); Non-African American GFR(CKD) 113.6 (60.0-200.0); Potassium 3.8 mmol/L (3.5-5.5); Total Bilirubin 0.4 mg/dL (0.30-1.20); Total Protein 6.1 g/dL (6.2-8.2)
--- NOTE | 2021-11-20 11:41 | P.PN ---
Subjective Progress Note Date: 11/20/21 Principal diagnosis: Weakness This is a 30-year-old mentally handicapped male patient with history of Down syndrome, hypothyroidism, depression, GERD, and previous history of pneumonia. Patient follows with Dr. Duarte in the pulmonary clinic. We saw him back in May 2021 when he had COVID-19 pneumonia and required hospitalization. Of note patient was vaccinated at the time of his infection with Pfizer vaccine, but he has not been boostered. Patient had recovered after that episode. On 11/16/2021 patient was brought in to the emergency department by his family and family was concerned about patient had been increasing fatigue over the past 2 days. He has been sleeping a lot. Patient is a poor historian although at times he is able to give some basic answers. Patient was complaining of some back discomfort. No confusion, and no focal weakness was noted. Chest x-ray showed increased density in the right medial lung base that could reflect developing infiltrate. Admission lab evaluation showed normal white count of 8.4, hemoglobin of 13.4, electrolytes and renal profile were unremarkable with the exception of CO2 which was elevated at 31, lactic acid is 1.4, LFTs are within normal limits, troponin was negative 1 at less than 0.012, CRP was 13.5, pro calcitonin level was low at 0.13, urinalysis showed 1+ protein, 1+ ketones, occasional mucus but no clear evidence of infection, he was tested for COVID-19 and influenza A and B and was found to be negative. Brain CT was completed in regards to complaints of weakness, and showed no acute intracranial process. Patient was placed on azithromycin and Rocephin initially in the emergency department. His blood cultures from 11/16/2021 showed alphahemolytic streptococcus, and Staphylococcus epidermidis, on the blood culture from the same date showed Staphylococcus aureus, final cultures are pending, patient did receive a dose of vancomycin, ID service has been consulted and patient is currently on Kefzol. he is resting comfortably, doesn't appear to be in any acute distress, room air pulse ox is 94%, hemodynamically stable, no fever or chills. No chest pain, no nausea or vomiting. Follow-up chest x-ray today showing perihilar and basilar infiltrate, unchanged compared admission chest x- ray Progress note dated 11/19/2021. 30-year-old mentally handicapped male patient, with a history of Down syndrome, hypothyroidism, depression, GERD, and prior episodes of aspiration pneumonia. The patient was admitted to the hospital with a diagnosis of aspiration pneumonia. Clinically, he seems be doing relatively well. He is on room air. Labs today include a white count of 8.7, he will 1 4.2, hematocrit 44.3, and platelet count 85,000. Sodium, potassium, chloride, CO2, anion gap, BUN, and creatinine are all normal. Microbiologic studies are showing evidence of alpha-hemolytic strep in the blood from November 16, and staph aureus in the blood from November 16. The patient is currently on Ancef as per infectious diseases. He is also on breathing treatments. On 11/20/2021 patient seen in follow-up. Is awake and alert, does not appear to be in any distress, he is answering simple questions, denies any trouble breathing, no rhonchi or wheezing, no chest discomfort. Remains on cefazolin per ID service recommendations. No cough, no chest pain. Vital signs have been stable, no fever or chills. Room air pulse ox is 94-98%. Blood pressure stable. Patient's blood cultures were positive for hemolytic streptococcus, and MSSA. His follow-up blood culture from 11/18/2021 still showed gram-positive cocci, final culture is pending. His labs have been reviewed, white blood cell, 6.9, hemoglobin is 12.9, electrolytes and renal profile were unremarkable, his pro calcitonin level was 0.13. Patient is unable to give us a sputum culture. Follow-up chest x-ray shows bilateral airspace disease. Objective - Vital Signs Vital signs: Vital Signs Temp 97.9 F 11/20/21 08:00 Pulse 56 L 11/20/21 08:00 Resp 18 11/20/21 08:00 BP 114/64 11/20/21 08:00 Pulse Ox 94 L 11/20/21 08:00 Intake & Output 11/19/21 11/20/21 11/20/21 18:59 06:59 18:59 Other: Voiding Method Toilet Toilet Urinal # Voids 3 2 # Bowel Movements 1 1 - Exam GENERAL EXAM: 30-year-old mentally handicapped white male patient, sitting up in the recliner, on room air with a pulse ox of 94% Patient is able to provide basic verbal responses, however he is a poor historian, and most the history was obtained from the chart HEAD: Normocephalic/atraumatic. EYES: Normal reaction of pupils, equal size. Conjunctiva pink, sclera white. NOSE: Clear with pink turbinates. THROAT: No erythema or exudates. NECK: No masses, no JVD, no thyroid enlargement, no adenopathy. CHEST: No chest wall deformity. Symmetrical expansion. LUNGS: Equal air entry with bilateral crackles CVS: Regular rate and rhythm, normal S1 and S2, no gallops, no murmurs, no rubs ABDOMEN: Soft, nontender. No hepatosplenomegaly, normal bowel sounds, no guarding or rigidity. EXTREMITIES: No clubbing, no edema, no cyanosis, 2+ pulses and upper and lower extremities. MUSCULOSKELETAL: Muscle strength and tone normal. SPINE: No scoliosis or deformity SKIN: No rashes CENTRAL NERVOUS SYSTEM: Alert and oriented -2. No focal deficits, tone is normal in all 4 extremities. PSYCHIATRIC: Alert and oriented -2. Appropriate affect. Intact judgment and insight. - Labs CBC & Chem 7: 11/20/21 07:41 11/20/21 07:41 Labs: Abnormal Lab Results - Last 24 Hours (Table) 11/20/21 11/20/21 Range/Units 07:41 07:41 RBC 3.72 L (4.40-5.60) X 10*6/uL Hgb 12.9 L (13.0-17.0) g/dL MCV 107.3 H (80.0-97.0) fL MCH 34.7 H (27.0-32.0) pg RDW 16.5 H (11.5-14.5) % Plt Count 131 L (140-440) X 10*3/uL MPV 12.7 H (9.5-12.2) fL BUN/Creatinine Ratio 11.39 L (12.00-20.00) Ratio AST 37 H (14-35) U/L Total Protein 6.1 L (6.2-8.2) g/dL Albumin 3.1 L (3.8-4.9) g/dL Albumin/Globulin Ratio 1.04 L (1.60-3.17) g/dL Microbiology - Last 24 Hours (Table) 11/16/21 14:15 Blood Culture Gram Stain - Final Blood Blood Culture - Final Staphylococcus aureus 11/16/21 14:00 Blood Culture Gram Stain - Final Blood Blood Culture - Final Alpha Hemolytic Streptococcus Staphylococcus epidermidis 11/18/21 06:27 Blood Culture Gram Stain - Preliminary Blood 11/18/21 06:27 Blood Culture - Final Blood Assessment and Plan Plan: Assessment: #1. Acute community acquired pneumonia #2. Alpha streptococcal bacteremia and staph aureus bacteremia, final cultures are pending. Streptococcal bacteremia likely related to acute community acquired pneumonia. Currently on Kefzol, patient also received IV vancomycin, and azithromycin and Rocephin in the emergency department #3. Weakness, fatigue related to the above, improved #4. History of COVID-19 pneumonia in May 2021, recovered #5. Hypothyroidism #6. Down syndrome #7. GERD/reflux #8. Nonsmoker #9. Depression Plan: Denies any dyspnea, breathing comfortably, maintaining good O2 saturations on room air Today's chest x-ray has been reviewed showing bilateral airspace disease, without significant change Clinically patient has remained stable, and clinically seems to be improving Continue antibiotics per ID service recommendations His blood cultures continue to be positive Follow blood culture was sent again today Patient remains on cefazolin Obtain echocardiogram to rule out possibility of infective endocarditis GI and DVT prophylaxis We'll continue to follow his clinical course I have personally seen and examined the patient, performed the documentation and the assessment and plan as written. Number of minutes spent on the visit: 10 Time with Patient: Less than 30
--- NOTE | 2021-11-20 16:38 | P.PN ---
Subjective Progress Note Date: 11/20/21 Patient is a 30-year-old male with Down syndrome, GERD, Prior COVID in 05/2021, and thyroid dysfunction who presented to the hospital secondary to increased lethargy. In the ER he underwent an extensive evaluation. Initial vital signs were within normal limits but he did become hypotensive with a systolic blood pressure of 86 which responded to fluid bolus. Initial laboratory analysis showed platelet count of 105, carbon dioxide 31, but was otherwise unremarkable. TSH was normal, urinalysis without signs of infection, COVID and influenza testing were negative. Chest x-ray did reveal possible early right-sided infiltrate and patient does have a history of aspiration. KUB without acute process and CT head with no acute process. In the ER he was given a dose of Rocephin and Zithromax. He was started on IV fluids. His depakote level came back at >160 and ammonia was elevated. His depakote was held and he was started on lactulose. His blood cultures came back with GPC and ultimately strep. Patient seen and examined at bedside. He denies any chest pain, shortness of breath, cough. Physical examination: General: ill appearing, no distress, appears at stated age Derm: warm, dry Head: atraumatic, normocephalic, symmetric Eyes: EOMI, no lid lag, anicteric sclera Mouth: no lip lesion, mucus membranes moist Cardiovascular: S1S2 reg, no murmur, positive posterior tibial pulse bilateral, Lungs: Decreased bs bilateral, no rhonchi, no rales , no accessory muscle use Abdominal: soft, nontender to palpation, no guarding, no appreciable organomegaly Ext: no gross muscle atrophy, no edema, no contractures Neuro: CN II-XI grossly intact, no focal neuro deficits Psych: Alert, oriented, flat affect Assessment/plan: Community acquired pneumonia Acute toxic encephalopathy Hypotension - IV fluids - Patient IV cefazolin per infectious disease - Consult ID and Pulm - Speech spoke with mom, not interested in PEG has seen speech multiple times aware of risk. Will continue chopped diet. - Pulm hygeine - Repeat BC in AM - COVID and Flu negative Multi-microbial bacteremia -Blood culture grew staph aureus epidermidis, alpha hemolytic streptococcus micrococcus suspicious -Suspect contamination Depakote toxicity, resolved Elevated ammonia due to depakot toxicity Thrombocyopenia - IV fluids - hold depakote - lactulose until ammonia is normalized - repeat Ammonia in AM - follow liver function - follow CBC no need for transfusion Downs syndrome with behavioral disturbances - zyprex - avoid depakote Hypothyroidism - synthroid - TSH normal DVT prophylaxis: SCDs Objective - Vital Signs Vital signs: Vital Signs Temp 98.1 F 11/20/21 14:00 Pulse 60 11/20/21 14:00 Resp 18 11/20/21 14:00 BP 100/63 11/20/21 14:00 Pulse Ox 96 11/20/21 14:00 Intake & Output 11/19/21 11/20/21 11/20/21 18:59 06:59 18:59 Other: Voiding Method Toilet Toilet Urinal # Voids 3 2 # Bowel Movements 1 1 - Labs CBC & Chem 7: 11/20/21 07:41 11/20/21 07:41 Labs: Abnormal Lab Results - Last 24 Hours (Table) 11/20/21 11/20/21 Range/Units 07:41 07:41 RBC 3.72 L (4.40-5.60) X 10*6/uL Hgb 12.9 L (13.0-17.0) g/dL MCV 107.3 H (80.0-97.0) fL MCH 34.7 H (27.0-32.0) pg RDW 16.5 H (11.5-14.5) % Plt Count 131 L (140-440) X 10*3/uL MPV 12.7 H (9.5-12.2) fL BUN/Creatinine Ratio 11.39 L (12.00-20.00) Ratio AST 37 H (14-35) U/L Total Protein 6.1 L (6.2-8.2) g/dL Albumin 3.1 L (3.8-4.9) g/dL Albumin/Globulin Ratio 1.04 L (1.60-3.17) g/dL Microbiology - Last 24 Hours (Table) 11/18/21 06:27 Blood Culture Gram Stain - Preliminary Blood Blood Culture - Preliminary Micrococcus species 11/16/21 14:15 Blood Culture Gram Stain - Final Blood Blood Culture - Final Staphylococcus aureus 11/16/21 14:00 Blood Culture Gram Stain - Final Blood Blood Culture - Final Alpha Hemolytic Streptococcus Staphylococcus epidermidis 11/18/21 06:27 Blood Culture - Final Blood
[2021-11-20] MEDS: OLANZapine ODT 10 MG TAB PO SCH (21:19)
[2021-11-20] MEDS: ACETAMINOPHEN TAB 325 MG TAB PO PRN (21:19)
--- NOTE | 2021-11-20 21:28 | P.PN ---
Subjective Progress Note Date: 11/20/21 Principal diagnosis: MSSA bacteremia Patient is a 30-year-old male with a past medical history significant for Down syndrome presenting to the hospital with weakness pathology has been diagnosed with pneumonia and evidence of MSSA bacteremia. On today's evaluation that is 11/20/2021, the patient continues to be afebrile, the patient is breathing comfortably on room air, no vomiting no diarrhea has been reported by nursing staff, patient is sleepy today and did not provide any history Objective - Vital Signs Vital signs: Vital Signs Temp 97.9 F 11/20/21 08:00 Pulse 56 L 11/20/21 08:00 Resp 18 11/20/21 08:00 BP 114/64 11/20/21 08:00 Pulse Ox 94 L 11/20/21 08:00 Intake & Output 11/19/21 11/20/21 11/20/21 18:59 06:59 18:59 Other: Voiding Method Toilet Toilet Urinal # Voids 3 2 # Bowel Movements 1 1 - Exam GENERAL DESCRIPTION: Middle-age lying in bed in no distress RESPIRATORY SYSTEM: Unlabored breathing , decreased breath sounds at bases HEART: S1 S2 regular rate and rhythm , ABDOMEN: Soft , no tenderness EXTREMITIES: No edema feet - Labs CBC & Chem 7: 11/20/21 07:41 11/20/21 07:41 Labs: Abnormal Lab Results - Last 24 Hours (Table) 11/20/21 11/20/21 Range/Units 07:41 07:41 RBC 3.72 L (4.40-5.60) X 10*6/uL Hgb 12.9 L (13.0-17.0) g/dL MCV 107.3 H (80.0-97.0) fL MCH 34.7 H (27.0-32.0) pg RDW 16.5 H (11.5-14.5) % Plt Count 131 L (140-440) X 10*3/uL MPV 12.7 H (9.5-12.2) fL BUN/Creatinine Ratio 11.39 L (12.00-20.00) Ratio AST 37 H (14-35) U/L Total Protein 6.1 L (6.2-8.2) g/dL Albumin 3.1 L (3.8-4.9) g/dL Albumin/Globulin Ratio 1.04 L (1.60-3.17) g/dL Microbiology - Last 24 Hours (Table) 11/18/21 06:27 Blood Culture Gram Stain - Preliminary Blood Blood Culture - Preliminary Micrococcus species 11/16/21 14:15 Blood Culture Gram Stain - Final Blood Blood Culture - Final Staphylococcus aureus 11/16/21 14:00 Blood Culture Gram Stain - Final Blood Blood Culture - Final Alpha Hemolytic Streptococcus Staphylococcus epidermidis 11/18/21 06:27 Blood Culture - Final Blood Assessment and Plan (1) Bacteremia Current Visit: Yes Status: Acute Code(s): R78.81 - BACTEREMIA SNOMED Code(s): 9240922 Plan: 1patient presented to hospital with weakness lethargy in this patient did have a pulmonary infiltrate and now with a positive blood culture one of them is strep and the other is Staph aureus likely true bacteremia and a likely source being pneumonia as no other obvious focus in this patient with no evidence of any cellulitis or joint swelling and abdominal soft on clinical Examination 2-blood cultures blood culture be positive for different pathogen highly suspicious for contamination however staph aureus is usually not a contaminant and the possible source could be pneumonia patient repeat blood culture has been negative, ideally would have recommended cefazolin 2 g every 8 hours for 2 weeks however the patient and mother would not allow the patient to go to detention to get his antibiotic and has to hire a private nurse to administer antibiotic as a case sealer is requesting a daily dose of antibiotic will get a midline and finish therapy with Rocephin 2 g daily with a total duration should be 2 weeks Time with Patient: Less than 30
[2021-11-21 02:34] VITALS: RESP 14
[2021-11-21] MEDS: FLUoxetine HCL 20 MG CAP PO SCH (07:32)
[2021-11-21] MEDS: LEVOTHYROXINE 50 MCG TAB PO SCH (07:32)
[2021-11-21 09:51] LABS: African American GFR (CKD) 132.4 (60.0-200.0); Anion Gap 11.2 mmol/L (10.00-18.00); BUN/Creat Ratio 12.44 Ratio (12.00-20.00); Blood Urea Nitrogen 11.2 mg/dL (9.0-27.0); Calcium 8.7 mg/dL (8.7-10.3); Carbon Dioxide 22.8 mmol/L (20.0-27.5); Magnesium 1.9 mg/dL (1.5-2.4); Non-African American GFR(CKD) 114.2 (60.0-200.0); Potassium 3.7 mmol/L (3.5-5.5); Total Bilirubin 0.2 mg/dL (0.30-1.20)
--- NOTE | 2021-11-21 10:03 | CA ---
Transthoracic Echo Report Name: Crow Miller Age: 30 Gender: M : 1990 Exam Date: 11/20/2021 13:24 Exam Location: [place] [facility] Ht (in): 60 Wt (lb): 190 Ordering Physician: Lou Jameson Attending/Referring Phys: [id number], Trino Vice President Of Sales Ramya Dolan RDCS Procedure CPT: Indications: bacteremia Cardiac Hx: Technical Quality: Fair Contrast 1: Total Dose (mL): Contrast 2: Total Dose (mL): MEASUREMENTS (Male / Female) Normal Values 2D ECHO LV Diastolic Diameter PLAX 4.1 cm 4.2 - 5.9 / 3.9 - 5.3 cm LV Systolic Diameter PLAX 2.7 cm IVS Diastolic Thickness 0.9 cm 0.6 - 1.0 / 0.6 - 0.9 cm LVPW Diastolic Thickness 0.9 cm 0.6 - 1.0 / 0.6 - 0.9 cm LV Relative Wall Thickness 0.4 RV Internal Dim ED PLAX 1.8 cm LA Systolic Diameter LX 2.3 cm 3.0 - 4.0 / 2.7 - 3.8 cm M-MODE Aortic Root Diameter MM 3.0 cm MV E Point Septal Separation 0.6 cm AV Cusp Separation MM 2.1 cm DOPPLER AV Peak Velocity 128.4 cm/s AV Peak Gradient 6.6 mmHg MV Area PHT 3.4 cm Mitral E Point Velocity 98.7 cm/s Mitral A Point Velocity 74.4 cm/s Mitral E to A Ratio 1.3 MV Deceleration Time 226.3 ms MV E' Velocity 9.7 cm/s Mitral E to MV E' Ratio 10.2 FINDINGS Left Ventricle Normal left ventricular size, wall thickness, systolic function with no obvious regional wall motion abnormalities. Normal left ventricular diastolic filling pattern for age. The ejection fraction is visually estimated at 60-65 %. Right Ventricle The right ventricle is normal in size and function. Right Atrium The right atrium is normal in size. Left Atrium The left atrium is normal in size. Mitral Valve Structurally normal mitral valve without significant stenosis or prolapse. There is no mitral regurgitation. Aortic Valve Structurally normal aortic valve without significant sclerosis or stenosis. There is no aortic regurgitation. Tricuspid Valve Structurally normal tricuspid valve without significant stenosis. Pulmonary artery systolic pressure is normal. Pulmonic Valve Structurally normal pulmonic valve without significant stenosis. There is no pulmonic regurgitation. Pericardium Normal pericardium without effusion. Aorta Normal aortic root dimension. CONCLUSIONS #1. Normal left ventricle size, wall thickness and function with an ejection fraction of 60-65%. #2. Normal valvular structure and function. #3. Normal chamber sizes. #4. No pericardial effusion Previewed by: Dr. Callum Miranda MD (Electronically Signed) Final Date: 21 November 2021 10:01
[2021-11-21 10:14] LABS: HCT 39.7 % (39.6-50.0); HGB 12.8 g/dL (13.0-17.0); MCH 34.6 pg (27.0-32.0); MCHC 32.2 g/dL (32.0-37.0); MCV 107.3 fL (80.0-97.0); Mean Platelet Volume 12.6 fL (9.5-12.2); NRBC Per 100 WBC 0 /100 WBCS (0.0-0.0); Platelet Count 174 X 10*3/uL (140-440); RDW 16.4 % (11.5-14.5); WBC 5.94 X 10*3/uL (4.50-10.00)
[2021-11-21 10:15] LABS: Basophils # (M) 0.06 X 10*3/uL (0.00-0.10); Eosinophils # (M) 0.24 X 10*3/uL (0.04-0.35); Lymphocytes # (M) 1.54 X 10*3/uL (0.90-5.00); Macrocytosis (M) 2+; Monocytes # (M) 1.31 X 10*3/uL (0.20-1.00); Myelocytes % 1 % (0-0); Neutrophils # (M) 2.73 X 10*3/uL (2.00-8.90); Neutrophils % (M) 46 %
--- NOTE | 2021-11-21 10:41 | P.DS ---
Providers Date of admission: 11/18/21 10:52 Expected date of discharge: 11/21/21 Attending physician: Aniyah Grider DO Consults: 11/17/21 13:59 Consult Physician Routine Consulting Provider: Jose Duarte Consult Reason/Comments: pneumonia with bacteremia Do you want consulting provider notified?: Yes Consult Physician Routine Consulting Provider: Desiree Gonzalez Consult Reason/Comments: strep pna bacteremia Do you want consulting provider notified?: Yes Primary care physician: Danielle Walton MD Hospital Course: Subjective Progress Note Date: 11/20/21 Patient is a 30-year-old male with Down syndrome, GERD, Prior COVID in 05/2021, and thyroid dysfunction who presented to the hospital secondary to increased lethargy. In the ER he underwent an extensive evaluation. Initial vital signs were within normal limits but he did become hypotensive with a systolic blood pressure of 86 which responded to fluid bolus. Initial laboratory analysis showed platelet count of 105, carbon dioxide 31, but was otherwise unremarkable. TSH was normal, urinalysis without signs of infection, COVID and influenza testing were negative. Chest x-ray did reveal possible early right-sided infiltrate and patient does have a history of aspiration. KUB without acute process and CT head with no acute process. In the ER he was given a dose of Rocephin and Zithromax. He was started on IV fluids. His depakote level came back at >160 and ammonia was elevated. His depakote was held and he was started on lactulose. His blood cultures came back with GPC and ultimately strep. Physical examination: General: ill appearing, no distress, appears at stated age Derm: warm, dry Head: atraumatic, normocephalic, symmetric Eyes: EOMI, no lid lag, anicteric sclera Mouth: no lip lesion, mucus membranes moist Cardiovascular: S1S2 reg, no murmur, positive posterior tibial pulse bilateral, Lungs: Decreased bs bilateral, no rhonchi, no rales , no accessory muscle use Abdominal: soft, nontender to palpation, no guarding, no appreciable organomegaly Ext: no gross muscle atrophy, no edema, no contractures Neuro: CN II-XI grossly intact, no focal neuro deficits Psych: Alert, oriented, flat affect Dictated the problem list: Community acquired pneumonia Acute toxic encephalopathy--resolved Hypotension -Hypertension improved with IV fluids -Per infectious disease patient will be discharged home with Rocephin 2 g daily for 2 weeks - Consult ID and Pulm - Speech spoke with mom, not interested in PEG has seen speech multiple times aware of risk. Will continue chopped diet. - COVID and Flu negative Multi-microbial bacteremia -Blood culture grew staph aureus epidermidis, alpha hemolytic streptococcus micrococcus suspicious -Patient was discharged with IV Rocephin for 2 weeks Thrombocyopenia--resolved Elevated ammonia due to Depakote side effect -Resolved Depakote held on discharge Downs syndrome with behavioral disturbances - zyprex - avoid depakote Hypothyroidism - synthroid - TSH normal Patient Condition at Discharge: Good Plan - Discharge Summary Discharge Rx Participant: No New Discharge Prescriptions: New cefTRIAXone [Rocephin] 2,000 mg IVP Q24HR 14 Days #14 each Continue Cholecalciferol [Vitamin D3 (25 Mcg = 1000 Iu)] 1,000 unit PO DAILY Clotrimazole Cream [Lotrimin Cream] 1 applic TOPICAL DAILY@0700 Divalproex Sodium [Depakote Sprinkle] 1,250 mg PO BID@0800,1999 Albuterol Inhaler [Ventolin Hfa Inhaler] 1 puff INHALATION RT-Q4H PRN PRN Reason: Shortness Of Breath Albuterol Nebulized [Ventolin Nebulized] 1.25 mg INHALATION RT-BID PRN PRN Reason: Shortness Of Breath OLANZapine ODT [ZyPREXA Zydis] 10 mg PO HS@2100 Levothyroxine Sodium [Synthroid] 50 mcg PO DAILY@0800 FLUoxetine HCL [PROzac] 20 mg PO DAILY@0800 Discharge Medication List Cholecalciferol [Vitamin D3 (25 Mcg = 1000 Iu)] 1,000 unit PO DAILY 11/25/15 [History] Clotrimazole Cream [Lotrimin Cream] 1 applic TOPICAL DAILY@0700 03/17/17 [History] Albuterol Nebulized [Ventolin Nebulized] 1.25 mg INHALATION RT-BID PRN 05/07/21 [History] Divalproex Sodium [Depakote Sprinkle] 1,250 mg PO BID@0800,2000 05/07/21 [History] FLUoxetine HCL [PROzac] 20 mg PO DAILY@0800 05/07/21 [History] Levothyroxine Sodium [Synthroid] 50 mcg PO DAILY@0800 05/07/21 [History] OLANZapine ODT [ZyPREXA Zydis] 10 mg PO HS@2100 05/07/21 [History] Albuterol Inhaler [Ventolin Hfa Inhaler] 1 puff INHALATION RT-Q4H PRN 11/16/21 [History] cefTRIAXone [Rocephin] 2,000 mg IVP Q24HR 14 Days #14 each 11/21/21 [Rx] Follow up Appointment(s)/Referral(s): Vaibhav Anderson [NON-STAFF] - As Needed KindsDanielle hsieh MD [Primary Care Provider] - 1-2 days Discharge Disposition: HOME WITH HOME HEALTH SERVICES
--- NOTE | 2021-11-21 11:24 | P.PN ---
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 Patient follows with Dr. Duarte in the pulmonary clinic. We saw him back in May 2021 when he had COVID-19 pneumonia and required hospitalization. Of note patient was vaccinated at the time of his infection with Pfizer vaccine, but he has not been boostered. Patient had recovered after that episode. On 11/16/2021 patient was brought in to the emergency department by his family and family was concerned about patient had been increasing fatigue over the past 2 days. He has been sleeping a lot. Patient is a poor historian although at time s he is able to give some basic answers. Patient was complaining of some back discomfort. No confusion, and no focal weakness was noted. Chest x-ray showed increased density in the right medial lung base that could reflect developing infiltrate. Admission lab evaluation showed normal white count of 8.4, hemoglobin of 13.4, electrolytes and renal profile were unremarkable with the exception of CO2 which was elevated at 31, lactic acid is 1.4, LFTs are within normal limits, troponin was negative 1 at less than 0.012, CRP was 13.5, pro calcitonin level was low at 0.13, urinalysis showed 1+ protein, 1+ ketones, occasional mucus but no clear evidence of infection, he was tested for COVID-19 and influenza A and B and was found to be negative. Brain CT was completed in regards to complaints of weakness, and showed no acute intracranial process. Patient was placed on azithromycin and Rocephin initially in the emergency department. His blood cultures from 11/16/2021 showed alphahemolytic streptococcus, and Staphylococcus epidermidis, on the blood culture from the same date showed Staphylococcus aureus, final cultures are pending, patient did receive a dose of vancomycin, ID service has been consulted and patient is currently on Kefzol. he is resting comfortably, doesn't appear to be in any acute distress, room air pulse ox is 94%, hemodynamically stable, no fever or chills. No chest pain, no nausea or vomiting. Follow-up chest x-ray today showing perihilar and basilar infiltrate, unchanged compared admission chest x- ray Progress note dated 11/19/2021. 30-year-old mentally handicapped male patient, with a history of Down syndrome, hypothyroidism, depression, GERD, and prior episodes of aspiration pneumonia. The patient was admitted to the hospital with a diagnosis of aspiration pneumonia. Clinically, he seems be doing relatively well. He is on room air. Labs today include a white count of 8.7, he will 14.2, hematocrit 44.3, and platelet count 85,000. Sodium, potassium, chloride, CO2, anion gap, BUN, and creatinine are all normal. Microbiologic studies are showing evidence of alpha-hemolytic strep in the blood from November 16, and staph aureus in the blood from November 16. The patient is currently on Ancef as per infectious diseases. He is also on breathing treatments. On 11/20/2021 patient seen in follow-up. Is awake and alert, does not appear to be in any distress, he is answering simple questions, denies any trouble breathing, no rhonchi or wheezing, no chest discomfort. Remains on cefazolin per ID service recommendations. No cough, no chest pain. Vital signs have been stable, no fever or chills. Room air pulse ox is 94-98%. Blood pressure stable. Patient's blood cultures were positive for hemolytic streptococcus, and MSSA. His follow-up blood culture from 11/18/2021 still showed gram-positive cocci, final culture is pending. His labs have been reviewed, white blood cell, 6.9, hemoglobin is 12.9, electrolytes and renal profile were unremarkable, his pro calcitonin level was 0.13. Patient is unable to give us a sputum culture. Follow-up chest x-ray shows bilateral airspace disease. The patient is seen today 11/21/2021 in follow-up on the regular medical floor. He is resting comfortably in bed. Awake and alert in no acute distress. He is maintaining good O2 saturations up to 99% on room air. He's been afebrile. H emodynamically stable. Follow-up blood cultures are revealing no growth. Echocardiogram did not reveal any evidence of vegetation. Normal valvular structure and function. No pericardial effusion. Normal left ventricular systolic function. White count 5.9. Hemoglobin 12.8. Sodium 143. Potassium 3.7. BUN 11. Creatinine 0.9. He is continued on cefazolin. Objective - Vital Signs Vital signs: Vital Signs Temp 98.1 F 11/21/21 07:57 Pulse 56 L 11/21/21 07:57 Resp 14 11/21/21 02:00 BP 100/64 11/21/21 07:57 Pulse Ox 93 L 11/21/21 07:57 Intake & Output 11/20/21 11/21/21 11/21/21 18:59 06:59 18:59 Intake Total 1080 Balance 1080 Intake: Oral 1080 Other: Voiding Method Toilet # Voids 4 3 1 - Exam GENERAL EXAM: Pleasant 30-year-old mentally challenged male patient, resting comfortably in bed, on room air with a pulse ox of 94% Patient is able to provide basic verbal responses, however he is a poor historian HEAD: Normocephalic/atraumatic. EYES: Normal reaction of pupils, equal size. Conjunctiva pink, sclera white. NOSE: Clear with pink turbinates. THROAT: No erythema or exudates. NECK: No masses, no JVD, no thyroid enlargement, no adenopathy. CHEST: No chest wall deformity. Symmetrical expansion. LUNGS: Equal air entry with bilateral crackles CVS: Regular rate and rhythm, normal S1 and S2, no gallops, no murmurs, no rubs ABDOMEN: Soft, nontender. No hepatosplenomegaly, normal bowel sounds, no guarding or rigidity. EXTREMITIES: No clubbing, no edema, no cyanosis, 2+ pulses and upper and lower extremities. MUSCULOSKELETAL: Muscle strength and tone normal. SPINE: No scoliosis or deformity SKIN: No rashes CENTRAL NERVOUS SYSTEM: No focal deficits, tone is normal in all 4 extremities. PSYCHIATRIC: Alert and oriented -2. Appropriate affect. Intact judgment and insight. - Labs CBC & Chem 7: 11/21/21 06:11 11/21/21 06:11 Labs: Abnormal Lab Results - Last 24 Hours (Table) 11/21/21 11/21/21 Range/Units 06:11 06:11 RBC 3.70 L (4.40-5.60) X 10*6/uL Hgb 12.8 L (13.0-17.0) g/dL MCV 107.3 H (80.0-97.0) fL MCH 34.6 H (27.0-32.0) pg RDW 16.4 H (11.5-14.5) % MPV 12.6 H (9.5-12.2) fL Myelocytes % 1 H (0-0) % Monocytes # (Manual) 1.31 H (0.20-1.00) X 10*3/uL Total Bilirubin 0.20 L (0.30-1.20) mg/dL AST 36 H (14-35) U/L Total Protein 6.0 L (6.2-8.2) g/dL Albumin 3.0 L (3.8-4.9) g/dL Albumin/Globulin Ratio 1.00 L (1.60-3.17) g/dL Microbiology - Last 24 Hours (Table) 11/20/21 07:41 Blood Culture - Preliminary Blood No Growth after 24 hours 11/16/21 14:15 Blood Culture Gram Stain - Final Blood Blood Culture - Final Staphylococcus aureus 11/19/21 18:09 Blood Culture - Preliminary Blood No Growth after 24 hours 11/18/21 06:27 Blood Culture Gram Stain - Preliminary Blood Blood Culture - Preliminary Micrococcus species 11/16/21 14:00 Blood Culture Gram Stain - Final Blood Blood Culture - Final Alpha Hemolytic Streptococcus Staphylococcus epidermidis Assessment and Plan Assessment: 1 Acute community acquired pneumonia 2 Alpha streptococcal bacteremia and staph aureus bacteremia, final cultures are pending. Streptococcal bacteremia likely related to acute community acquired pneumonia. Currently on Kefzol, patient also received IV vancomycin, and azithromycin and Rocephin in the emergency department. Echocardiogram revealed no evidence of vegetation 3 Weakness, fatigue related to the above, improved 4 History of COVID-19 pneumonia in May 2021, recovered 5 Hypothyroidism 6 Down syndrome 7 GERD/reflux 8 Nonsmoker 9 Depression Plan: The patient was seen and evaluated Stable and on room air Complete a course of antibiotic Echocardiogram revealed no vegetation Home once cleared by medicine Follow-up in our office in 1-2 weeks' I have personally seen and examined the patient, performed the documentation and the assessment and plan as written. Number of minutes spent on the visit: 10.
[2021-11-21 14:24] VITALS: BP 105/70; PULSE 61; TEMP 97.5
--- NOTE | 2021-11-22 09:54 | CDI ---
Documentation Clarification Form Date: 11/22/2021 09:02:00 AM From: Dottie Ramírez Admit Date: 11/11/2021 06:49:00 PM Patient Name: Diony Austin Visit Number: [id number] Discharge Date: 11/20/2021 01:42:00 PM ATTENTION: The Clinical Documentation Specialists (CDI) and [facility] Coding Staff appreciate your assistance in clarifying documentation. Please respond to the clarification below the line at the bottom and electronically sign. The CDI & [facility] Coding staff will review the response and follow-up if needed. Please note: Queries are made part of the Legal Health Record. If you have any questions, please contact the author of this message via ITS. Dr. Aniyah Grider Overdose of oral morphine is documented throughout the chart and patient is noted to have aspiration pneumonia and sepsis per query response. Per pulmonary "Suspect aspiration pneumonia related to opiate overdose." Please clarify if there is a relationship between the Overdose of morphine and aspiration pneumonia/sepsis. History/Risk Factors: Patient overdose on morphine. Aspiration pneumonia, sepsis per CDI query response Clinical Indicators: Treatment: Narcan, Rocephin and Zithromax discharged on Zosyn. ID consult Please clarify the relationship, if any, which is clinically appropriate for this patient: [ ] Sepsis due to aspiration pneumonia due to morphine OD [ ] Sepsis due to aspiration pneumonia not due to morphine OD [ ] Other explanation of clinical findings (please specify) [ ] Unable to determine (no explanation for clinical findings) MTDD
== END 2021-11-21 16:18 | disposition home health service (06) | DRG 193 ==
LOC: EC 10:37 → 4SSUR 13:51 → OBSVTOIN 11-18 10:52
PROVIDERS: ADMIT Internal Medicine; ATTEND Internal Medicine
DX: J15.4 Pneumonia due to other streptococci (principal); G92.9 Unspecified toxic encephalopathy; R78.81 Bacteremia; B95.61 Methicillin susceptible Staphylococcus aureus infection as the cause of diseases classified elsewhere; E03.9 Hypothyroidism, unspecified; I95.9 Hypotension, unspecified; F32.A Depression, unspecified; R13.10 Dysphagia, unspecified; K21.9 Gastro-esophageal reflux disease without esophagitis; Q90.9 Down syndrome, unspecified; T42.6X5A Adverse effect of other antiepileptic and sedative-hypnotic drugs, initial encounter; Z20.822 Contact with and (suspected) exposure to COVID-19; Z28.311 Partially vaccinated for COVID-19; Z79.890 Hormone replacement therapy; Z79.899 Other long term (current) drug therapy; Z82.49 Family history of ischemic heart disease and other diseases of the circulatory system; Z86.16 Personal history of COVID-19; Z87.01 Personal history of pneumonia (recurrent); Z90.49 Acquired absence of other specified parts of digestive tract; Z98.890 Other specified postprocedural states
CPT/HCPCS: 36410; 36415; 70450; 71045; 71046; 74018; 76937; 80048; 80053; 80164; 81001; 82140; 83605; 83735; 84100; 84145; 84439; 84443; 84481; 84484; 85025; 85027; 85610; 85652; 85730; 86140; 87040; 87077; 87186; 87502; 87635; 93005; 93306; 96361; 96365; 99285

== ENCOUNTER 2025-01-14 15:16 | Emergency (ER) | payer MEDICARE, OTHER ==
--- NOTE | 2025-01-14 15:43 | ED ---
Recheck HPI - General Chief Complaint: Nausea/Vomiting/Diarrhea Stated Complaint: N/D Abd Pain Time Seen by Provider: 01/14/25 15:24 Source: patient, RN notes reviewed, old records reviewed Mode of arrival: ambulatory Limitations: altered mental status - History of Present Illness Initial Comments: This is a 34-year-old male well-known to this ER coming in for nausea vomiting diarrhea abdominal pain. Patient has significant abdominal pain here in the ER with persistent nausea vomiting currently. No fevers no cough congestion no diarrhea no sick contacts no travel patient is a poor historian secondary to patient does have history of Down syndrome recent cholecystectomy and concerns for abdominal pain here in the ER MD Complaint: other (Abdominal pain postoperative pain) -: days(s) Returns Today for: persistent/worsening pain related to initial visit Symptoms Since Prior Visit: worsening pain Associated Symptoms: none Treatments Prior to Arrival: Given Pain Meds on - Related Data Home Medications Medication Instructions Recorded Confirmed FLUoxetine HCL [PROzac] 20 mg PO DAILY@0800 05/07/21 12/27/24 Levothyroxine Sodium [Synthroid] 50 mcg PO DAILY@0800 05/07/21 12/27/24 Atorvastatin [Lipitor] 10 mg PO HS 12/27/24 12/27/24 Cholecalciferol [Vitamin D3 (25 50 mcg PO DAILY 12/27/24 12/27/24 Mcg = 1000 Iu)] Hydrocortisone Cream 1 applic TOPICAL BID 12/27/24 12/27/24 [Hydrocortisone 2.5% Cream] OLANZapine [OLANZapine Odt] 20 mg PO HS 12/27/24 12/27/24 hydrOXYzine HCL [Atarax] 20 mg PO HS 12/27/24 12/27/24 Previous Rx's Medication Instructions Recorded Omeprazole [PriLOSEC] 20 mg PO AC-BRKFST #30 cap 12/27/24 Acetaminophen Tab [Tylenol Tab] 650 mg PO Q4H PRN #30 tablet 12/28/24 Ibuprofen [Motrin] 600 mg PO Q8HR PRN #30 tab 12/28/24 Dicyclomine [Bentyl] 20 mg PO QID PRN #30 tablet 01/20/25 Diphenox-Atrop 2.5-0.025 mg 2 tab PO QID PRN 3 Days #24 tab 01/20/25 [Lomotil] L.acidoph,Paracasei, B.lactis 1 each PO DAILY #30 capsule 01/20/25 [Probiotic] Allergies Allergy/AdvReac Type Severity Reaction Status Date / Time No Known Allergies Allergy Verified 01/20/25 20:06 Review of Systems ROS Statement: Those systems with pertinent positive or pertinent negative responses have been documented in the HPI. ROS Other: All systems not noted in ROS Statement are negative. 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 Past Anesthesia/Blood Transfusion Reactions: No Reported Reaction Past Psychological History: Depression Smoking Status: Never smoker Past Alcohol Use History: None Reported Past Drug Use History: None Reported - Past Family History Mother Family Medical History: No Reported History Father Family Medical History: Myocardial Infarction ([place]) General Exam Limitations: altered mental status General appearance: alert, in no apparent distress Head exam: Present: atraumatic, normocephalic, normal inspection Eye exam: Present: normal appearance, PERRL, EOMI. Absent: scleral icterus, conjunctival injection, periorbital swelling ENT exam: Present: normal exam, mucous membranes moist Neck exam: Present: normal inspection. Absent: tenderness, meningismus, lymphadenopathy Respiratory exam: Present: normal lung sounds bilaterally. Absent: respiratory distress, wheezes, rales, rhonchi, stridor Cardiovascular Exam: Present: regular rate, normal rhythm, normal heart sounds. Absent: systolic murmur, diastolic murmur, rubs, gallop, clicks GI/Abdominal exam: Present: soft, normal bowel sounds. Absent: distended, tenderness, guarding, rebound, rigid Extremities exam: Present: normal inspection, full ROM, normal capillary refill. Absent: tenderness, pedal edema, joint swelling, calf tenderness Back exam: Present: normal inspection Neurological exam: Present: alert, oriented X3, CN II-XII intact Psychiatric exam: Present: normal affect, normal mood Skin exam: Present: warm, dry, intact, normal color. Absent: rash Course Vital Signs 01/14/25 01/14/25 15:19 19:27 Temperature 98.4 F 98.3 F Pulse Rate 85 91 Respiratory 20 18 Rate Blood Pressure 137/82 128/76 O2 Sat by Pulse 99 99 Oximetry - Reevaluation(s) Reevaluation #1: Medical records reviewed Reevaluation #2: Patient symptoms improved Reevaluation #3: Patient informed of results and questions answered Reevaluation #4: Was pt. sent in by a medical professional or institution (, [facility], [facility], urgent care, hospital, or fci...) When possible be specific @ -no Did you speak to anyone other than the patient for history (EMS, parent, family, police, friend...)? What history was obtained from this source @ -no Did you review nursing and triage notes (agree or disagree)? Why? @ -agree Are old charts reviewed (outside hosp., previous admission, EMS record, old EKG, old radiological studies, urgent care reports/EKG's, fci records)? Report findings @ -yes Differential Diagnosis (chest pain, altered mental status, abdominal pain women, abdominal pain men, vaginal bleeding, weakness, fever, dyspnea, syncope, headache, dizziness, GI bleed, back pain, seizure, CVA, palpatations, mental health, musculoskeletal)? @ -prior EKG interpreted by me (3pts min.). @ -yes X-rays interpreted by me (1pt min.). @ -yes negative for acute disease CT interpreted by me (1pt min.). @ -yes negative for acute disease U/S interpreted by me (1pt. min.). @ -no What testing was considered but not performed or refused? (CT, X-rays, U/S, labs)? Why? @ -none What meds were considered but not given or refused? Why? @ -none Did you discuss the management of the patient with other professionals (professionals i.e. [facility] Coulter, [facility], lab, RT, psych nurse, psych social worker, stock taker, teacher, senior escrow officer, case assembler)? Give summary @ -no Was smoking cessation discussed for >3mins.? @ -no Was critical care preformed (if so, how long)? @ -no Were there social determinants of health that impacted care today? How? (Homelessness, low income, unemployed, alcoholism, drug addiction, transportation, low edu. Level, literacy, decrease access to med. care, senior living, rehab)? @ -none Was there de-escalation of care discussed even if they declined (Discuss DNR or withdrawal of care, Hospice)? DNR status @ -no What co-morbidities impacted this encounter? (DM, HTN, Smoking, COPD, CAD, Cancer, CVA, ARF, Chemo, Hep., AIDS, mental health diagnosis, sleep apnea, morbid obesity)? @ -none Was patient admitted / discharged? Hospital course, mention meds given and route, prescriptions, significant lab abnormalities, going to OR and other pertinent info. @ - 34 male to the ER for acute abdominal pain. CT scan x-ray negative here in the ER patient feels well lab testing normal patient can be discharged home Discharge Undiagnosed new problem with uncertain prognosis? @ -no Drug Therapy requiring intensive monitoring for toxicity (Heparin, Nitro, Insulin, Cardizem)? @ -no Were any procedures done? @ -no Diagnosis/symptom? @ -Acute abdominal pain with chest pain Acute, or Chronic, or Acute on Chronic? @ -Acute Uncomplicated (without systemic symptoms) or Complicated (systemic symptoms)? @ -Complicated Side effects of treatment? @ -no Exacerbation, Progression, or Severe Exacerbation? @ -exacerbation Poses a threat to life or bodily function? How? (Chest pain, [place], [place], pneumonia, PE, COPD, DKA, ARF, appy, cholecystitis, CVA, Diverticulitis, Homicidal, Suicidal, threat to staff... and all critical care pts) @ -no Reevaluation #5: Differential Abdominal Pain Men: Appendicitis, cholecystitis, diverticulosis, ischemic bowel, pancreatitis, hepatitis, UTI, gastroenteritis, AAA, incarcerated hernia, bowel obstruction, constipation, inflammatory bowel, hepatitis, peptic ulcer disease, splenic infarction, perforated viscus, testicular torsion, this is not meant to be an all-inclusive list Medical Decision Making - Medical Decision Making 34 male to the ER for acute abdominal pain. CT scan x-ray negative here in the ER patient feels well lab testing normal patient can be discharged home - Lab Data Result diagrams: 01/14/25 16:02 01/14/25 16:02 Lab Results 01/14/25 01/14/25 01/14/25 Range/Units 16:02 16:02 16:02 WBC 15.44 H (4.50-10.00) 10*3/uL RBC 5.45 (4.40-5.60) 10*6/uL Hgb 16.7 (13.0-17.0) g/dL Hct 49.3 (39.6-50.0) % MCV 90.5 (80.0-97.0) fL MCH 30.6 (27.0-32.0) pg MCHC 33.9 (32.0-37.0) g/dL Plt Count 248 (140-440) 10*3/uL MPV 12.5 H (9.5-12.2) fL Immature Gran % (Auto) 0.5 % Neutrophils % 85.7 % Lymphocytes % 6.5 % Monocytes % 5.6 % Eosinophils % 1.1 % Basophils % 0.6 % Immature Gran # 0.08 H (0.00-0.04) 10*3/uL Neutrophils # 13.23 H (1.80-7.70) 10*3/uL Lymphocytes # 1.01 (0.90-5.00) 10*3/uL Monocytes # 0.86 (0.20-1.00) 10*3/uL Eosinophils # 0.17 (0.04-0.35) 10*3/uL Basophils # 0.09 (0.00-0.10) 10*3/uL PT 11.2 (10.0-12.5) sec INR 1.0 (<1.2) APTT 39.0 H (22.0-30.0) sec D-Dimer 0.30 (<0.60) mg/L FEU Sodium (137-145) mmol/L Potassium (3.5-5.1) mmol/L Chloride (98-107) mmol/L Carbon Dioxide (22-30) mmol/L Anion Gap mmol/L BUN (9-20) mg/dL Creatinine (0.66-1.25) mg/dL Est GFR (CKD-EPI)AfAm (>60 ml/min/1.73 sqM) Est GFR (CKD-EPI)NonAf (>60 ml/min/1.73 sqM) Glucose (74-99) mg/dL Plasma Lactic Acid Km (0.7-2.0) mmol/L Calcium (8.4-10.2) mg/dL Total Bilirubin (0.2-1.3) mg/dL AST (17-59) U/L ALT (4-49) U/L Alkaline Phosphatase (38-126) U/L Total Protein (6.3-8.2) g/dL Albumin (3.5-5.0) g/dL Amylase (30-110) U/L Lipase (23-300) U/L Urine Color Colorless Urine Appearance Clear (Clear) Urine pH 5.5 (5.0-8.0) Ur Specific Bath 1.008 (1.001-1.035) Urine Protein Negative (Negative) Urine Glucose (UA) Negative (Negative) Urine Ketones Negative (Negative) Urine Blood Negative (Negative) Urine Nitrite Negative (Negative) Urine Bilirubin Negative (Negative) Urine Urobilinogen <2.0 (<2.0) mg/dL Ur Leukocyte Esterase Negative (Negative) 01/14/25 01/14/25 Range/Units 16:02 16:02 WBC (4.50-10.00) 10*3/uL RBC (4.40-5.60) 10*6/uL Hgb (13.0-17.0) g/dL Hct (39.6-50.0) % MCV (80.0-97.0) fL MCH (27.0-32.0) pg MCHC (32.0-37.0) g/dL Plt Count (140-440) 10*3/uL MPV (9.5-12.2) fL Immature Gran % (Auto) % Neutrophils % % Lymphocytes % % Monocytes % % Eosinophils % % Basophils % % Immature Gran # (0.00-0.04) 10*3/uL Neutrophils # (1.80-7.70) 10*3/uL Lymphocytes # (0.90-5.00) 10*3/uL Monocytes # (0.20-1.00) 10*3/uL Eosinophils # (0.04-0.35) 10*3/uL Basophils # (0.00-0.10) 10*3/uL PT (10.0-12.5) sec INR (<1.2) APTT (22.0-30.0) sec D-Dimer (<0.60) mg/L FEU Sodium 137 (137-145) mmol/L Potassium 4.3 (3.5-5.1) mmol/L Chloride 102 (98-107) mmol/L Carbon Dioxide 22 (22-30) mmol/L Anion Gap 13 mmol/L BUN 11 (9-20) mg/dL Creatinine 0.99 (0.66-1.25) mg/dL Est GFR (CKD-EPI)AfAm >90 (>60 ml/min/1.73 sqM) Est GFR (CKD-EPI)NonAf >90 (>60 ml/min/1.73 sqM) Glucose 104 H (74-99) mg/dL Plasma Lactic Acid Km 1.6 (0.7-2.0) mmol/L Calcium 9.1 (8.4-10.2) mg/dL Total Bilirubin 0.8 (0.2-1.3) mg/dL AST 34 (17-59) U/L ALT 21 (4-49) U/L Alkaline Phosphatase 102 (38-126) U/L Total Protein 7.6 (6.3-8.2) g/dL Albumin 4.2 (3.5-5.0) g/dL Amylase 54 (30-110) U/L Lipase 143 (23-300) U/L Urine Color Urine Appearance (Clear) Urine pH (5.0-8.0) Ur Specific Bath (1.001-1.035) Urine Protein (Negative) Urine Glucose (UA) (Negative) Urine Ketones (Negative) Urine Blood (Negative) Urine Nitrite (Negative) Urine Bilirubin (Negative) Urine Urobilinogen (<2.0) mg/dL Ur Leukocyte Esterase (Negative) - Radiology Data Radiology results: report reviewed (CT abdomen pelvis chest x-ray is negative for acute disease), image reviewed Disposition Clinical Impression: Abdominal pain Disposition: HOME SELF-CARE Condition: Good Instructions (If sedation given, give patient instructions): Abdominal Pain (ED) Is patient prescribed a controlled substance at d/c from ED?: No Referrals: Danielle Walton MD [Primary Care Provider] - 1-2 days Time of Disposition: 19:00
[2025-01-14] MEDS: ONDANSETRON 4 MG/2 ML VIAL IVP STA (15:54)
[2025-01-14] MEDS: PANTOPRAZOLE 40 MG/10 ML VIAL IVP STA (15:54)
[2025-01-14] MEDS: SODIUM CHLORIDE 0.9% 1,000 ML IV SCH (15:54)
[2025-01-14] MEDS: HYDROmorphone 1 MG/ML 1 ML SYRINGE IVP STA (15:57)
[2025-01-14 16:16] LABS: Basophils # (A) 0.09 10*3/uL (0.00-0.10); Basophils % (A) 0.6 %; Eosinophils # (A) 0.17 10*3/uL (0.04-0.35); Eosinophils % (A) 1.1 %; HCT 49.3 % (39.6-50.0); HGB 16.7 g/dL (13.0-17.0); Lymphocytes # (A) 1.01 10*3/uL (0.90-5.00); Lymphocytes % (A) 6.5 %; MCH 30.6 pg (27.0-32.0); MCHC 33.9 g/dL (32.0-37.0); MCV 90.5 fL (80.0-97.0); Mean Platelet Volume 12.5 fL (9.5-12.2); Monocytes # (A) 0.86 10*3/uL (0.20-1.00); Monocytes % (A) 5.6 %; Neutrophils # (A) 13.23 10*3/uL (1.80-7.70); Neutrophils % (A) 85.7 %; Platelet Count 248 10*3/uL (140-440); RBC 5.45 10*6/uL (4.40-5.60); RDW 15.1 % (11.5-14.5); WBC 15.44 10*3/uL (4.50-10.00)
--- NOTE | 2025-01-14 16:20 | XR ---
EXAMINATION TYPE: XR chest 2V DATE OF EXAM: 01/14/2025 4:14 PM COMPARISON: Chest radiographs from 10/07/2024 CLINICAL INDICATION: Male, 34 years old with history of cp; TECHNIQUE: XR chest 2V Frontal and lateral views of the chest. FINDINGS: Lungs/Pleura: Low lung volumes are present. There is no evidence of pleural effusion, focal consolida tion, or pneumothorax. Pulmonary vascularity: Unremarkable. Heart/mediastinum: Cardiomediastinal silhouette is unremarkable. Musculoskeletal: No acute osseous pathology. Other findings: None IMPRESSION: Low lung volumes with a generalized hazy appearance which could represent atelectasis versus pulmonar y edema correlate with serum BNP. [facility], , 01/14/2025 4:18 PM
[2025-01-14 16:26] LABS: Appearance,Urine Clear (Clear); Bilirubin,Urine Negative (Negative); Blood,Urine Negative (Negative); Color,Urine Colorless; Glucose,Urine (UA) Negative (Negative); Ketones,Urine Negative (Negative); Leukocyte Esterase,Urine Negative (Negative); Nitrite,Urine Negative (Negative); PH, Urine 5.5 (5.0-8.0); Protein,Urine Negative (Negative); Specific Gravity,Urine 1.008 (1.001-1.035); Urobilinogen,Urine <2.0 mg/dL (<2.0)
[2025-01-14 16:32] LABS: ALT 21 U/L (4-49); African American GFR (CKD) >90 (>60 ml/min/1.73 sqM); Amylase 54 U/L (30-110); Anion Gap 13 mmol/L; Blood Urea Nitrogen 11 mg/dL (9-20); Calcium 9.1 mg/dL (8.4-10.2); Carbon Dioxide 22 mmol/L (22-30); Chloride 102 mmol/L (98-107); Glucose 104 mg/dL (74-99); Lipase 143 U/L (23-300); Non-African American GFR(CKD) >90 (>60 ml/min/1.73 sqM); Sodium 137 mmol/L (137-145); Total Bilirubin 0.8 mg/dL (0.2-1.3)
[2025-01-14 16:36] LABS: Prothrombin Time 11.2 sec (10.0-12.5)
[2025-01-14 16:44] LABS: AST 34 U/L (17-59); Albumin 4.2 g/dL (3.5-5.0); Alkaline Phosphatase 102 U/L (38-126); Potassium 4.3 mmol/L (3.5-5.1); Total Protein 7.6 g/dL (6.3-8.2)
--- NOTE | 2025-01-14 18:09 | CT ---
EXAMINATION TYPE: CT abdomen pelvis w con DATE OF EXAM: 01/14/2025 5:51 PM COMPARISON: CT 12/27/2024. CLINICAL INDICATION: Male, 34 years old with history of abdominal pain; pain TECHNIQUE: Axial CT abdomen pelvis w con;Sagittal and coronal reformats were created on a separate w orkstation. Contrast used:100 mL of Isovue 300 with IV Contrast, (none if empty) Oral contrast used: without Oral Contrast (none if empty) CT DLP: 1222.2 mGycm, Automated exposure control for dose reduction was used. FINDINGS: LOWER CHEST: Unremarkable ABDOMEN LIVER: Unremarkable GALLBLADDER AND BILE DUCTS: The gallbladder is surgically absent. PANCREAS: Unremarkable. SPLEEN: Unremarkable. ADRENAL GLANDS: Unremarkable. KIDNEYS AND URETERS: No evidence of hydronephrosis or obstructing renal calculus. The ureters are unr emarkable. PELVIS BLADDER: No evidence for wall thickening or mass given limitations of exam. REPRODUCTIVE: Unremarkable. ABDOMEN & PELVIS STOMACH AND BOWEL: No evidence of bowel obstruction. Postsurgical changes to the bowel in the midabdo men with suture identified. The appendix is not definitively visualized. PERITONEUM/RETROPERITONEUM: No evidence of pneumoperitoneum or free fluid. VASCULATURE: No evidence of aortic aneurysm. MUSCULOSKELETAL: No acute osseous abnormalities LYMPH NODES: No gross evidence for lymphadenopathy. SOFT TISSUE/ABDOMINAL WALL: Multiple fat-containing ventral wall hernias. Bilateral fat-containing in guinal hernias. The largest measuring up to 26 mm . Gas is seen in the anterior right abdominal subcu taneous tissues with at least 2 foci entering the abdomen. No organizing fluid collections. IMPRESSION: 1. No evidence for acute abdominal process. 2. Multiple ventral wall hernias containing fat. 3. Right lower abdomen subcutaneous gas with small focus entering the anterior abdomen. Correlate fo r recent cholecystectomy. [facility], , 01/14/2025 6:07 PM
[2025-01-14] MEDS: HYDROmorphone 0.5 MG/0.5 ML SYRINGE IVP STA (19:19)
[2025-01-14 19:29] VITALS: BP 128/76; PULSE 91; RESP 18; TEMP 98.3
== END 2025-01-14 19:29 | disposition home or self-care (01) ==
LOC: EC 15:16
DX: R10.9 Unspecified abdominal pain (principal); R07.9 Chest pain, unspecified; Z86.16 Personal history of COVID-19
CPT/HCPCS: 36415; 85379; 80053; 82150; 83605; 83690; 85025; 85610; 85730; 81003; 87040; 71046; 74177; 99284; 96374; 96375 ×2; 96376; 96361; J2405; J1171 ×2; Q9967; J2470

== ENCOUNTER 2025-01-20 19:59 | Emergency (ER) | payer MEDICARE, OTHER ==
--- NOTE | 2025-01-20 21:11 | ED ---
Nausea/Vomiting/Diarrhea HPI - General Chief complaint: Nausea/Vomiting/Diarrhea Stated complaint: Bloody Stool Time Seen by Provider: 01/20/25 21:00 Source: patient, RN notes reviewed, Caregiver Mode of arrival: EMS Limitations: physical limitation - History of Present Illness Initial comments: This is a 34-year-old male who presents to the emergency department for diarrhea. Patient has a history of Down syndrome and lives at a senior living. He presents with a staff member who advised that he has been dealing with diarrhea since he had his cholecystectomy about 3 weeks ago. However, over the last week it seems to have gotten worse and they had brought him here about 6 days ago due to the symptoms. States that his workup here was unremarkable and he was discharged home, however he is continuing to have diarrhea. States that they are keeping a log of this and they have been unable to attribute it to any specific foods. Unsure exactly how many times a day that is happening, however it is essentially straight water at this point. He has not had any new medications. He is not having any nausea or vomiting. Today when he had a bowel movement there was also bright red blood in the toilet which had never happened before. He has had a normal bowel movement since. They have given him Imodium a couple of times, but not recently. He was also taking a fiber supplement, however his mother requested that it be discontinued to see if this would help. However, his PCP then heard of this and advised it be resumed and he just resumed it ye sterday. complaint: diarrhea - Related Data Home Medications Medication Instructions Recorded Confirmed FLUoxetine HCL [PROzac] 20 mg PO DAILY@0800 05/07/21 12/27/24 Levothyroxine Sodium [Synthroid] 50 mcg PO DAILY@0800 05/07/21 12/27/24 Atorvastatin [Lipitor] 10 mg PO HS 12/27/24 12/27/24 Cholecalciferol [Vitamin D3 (25 50 mcg PO DAILY 12/27/24 12/27/24 Mcg = 1000 Iu)] Hydrocortisone Cream 1 applic TOPICAL BID 12/27/24 12/27/24 [Hydrocortisone 2.5% Cream] OLANZapine [OLANZapine Odt] 20 mg PO HS 12/27/24 12/27/24 hydrOXYzine HCL [Atarax] 20 mg PO HS 12/27/24 12/27/24 Previous Rx's Medication Instructions Recorded Omeprazole [PriLOSEC] 20 mg PO AC-BRKFST #30 cap 12/27/24 Acetaminophen Tab [Tylenol Tab] 650 mg PO Q4H PRN #30 tablet 12/28/24 Ibuprofen [Motrin] 600 mg PO Q8HR PRN #30 tab 12/28/24 Dicyclomine [Bentyl] 20 mg PO QID PRN #30 tablet 01/20/25 Diphenox-Atrop 2.5-0.025 mg 2 tab PO QID PRN 3 Days #24 tab 01/20/25 [Lomotil] L.acidoph,Paracasei, B.lactis 1 each PO DAILY #30 capsule 01/20/25 [Probiotic] Allergies Allergy/AdvReac Type Severity Reaction Status Date / Time No Known Allergies Allergy Verified 01/20/25 20:06 Review of Systems ROS Statement: Those systems with pertinent positive or pertinent negative responses have been documented in the HPI. ROS Other: All systems not noted in ROS Statement are negative. 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 Past Anesthesia/Blood Transfusion Reactions: No Reported Reaction Past Psychological History: Depression Smoking Status: Never smoker Past Alcohol Use History: None Reported Past Drug Use History: None Reported - Past Family History Mother Family Medical History: No Reported History Father Family Medical History: Myocardial Infarction ([place]) General Exam Limitations: no limitations General appearance: alert, in no apparent distress Head exam: Present: atraumatic, normocephalic, normal inspection Respiratory exam: Present: normal lung sounds bilaterally. Absent: respiratory distress, wheezes, rales, rhonchi, stridor Cardiovascular Exam: Present: regular rate, normal rhythm GI/Abdominal exam: Present: soft, normal bowel sounds. Absent: distended, tenderness, guarding, rebound, rigid Neurological exam: Present: alert Skin exam: Present: warm, dry, intact, normal color. Absent: rash Course Vital Signs 01/20/25 01/20/25 01/20/25 20:02 21:56 22:18 Temperature 98.0 F Pulse Rate 70 67 75 Respiratory 18 16 16 Rate Blood Pressure 109/71 93/63 100/65 O2 Sat by Pulse 97 95 96 Oximetry 01/20/25 01/20/25 23:30 23:32 Temperature 98.5 F Pulse Rate 72 Respiratory 16 Rate Blood Pressure 105/68 O2 Sat by Pulse 95 Oximetry Medical Decision Making - Medical Decision Making This is a 34 year old male who presents to the emergency department for keri meraz. Was pt. sent in by a medical professional or institution? @ -No Did you speak to anyone other than the patient for history? @ -His caregiver provided the majority of the history. Did you review nursing and triage notes? @ -Yes, and I agree, it is accurate with regards to the patient's symptoms. Were old charts reviewed? @ -CT scan of the abdomen and pelvis from 01/14/2025 revealing no acute process. Differential Diagnosis? @ -Infection, illness, cholecystectomy status, allergy, dietary intake, this is not adrenal was a list. EKG interpreted by me (3pts min.)? @ -Not obtained X-rays interpreted by me (1pt min.)? @ -Not obtained CT interpreted by me (1pt min.)? @ -Not obtained U/S interpreted by me (1pt. min.)? @ -Not obtained What testing was considered but not performed? (CT, X-rays, U/S, labs)? Why? @ -None What meds were considered but not given? Why? @ -None Did you discuss the management of the patient with other professionals? @ -No Did you reconcile home meds? @ -No Was smoking cessation discussed for >3mins.? @ -No Was critical care preformed (if so, how long)? @ -No Were there social determinants of health that impacted care today? How? (Homelessness, low income, unemployed, alcoholism, drug addiction, transportation, low edu. Level, literacy, decrease access to med. care, retirement, rehab)? @ -No Was there de-escalation of care discussed even if they declined? (Discuss DNR or withdrawal of care, Hospice)? @ -No What co-morbidities impacted this encounter? (DM, HTN, Smoking, COPD, CAD, Cancer, CVA, Hep., AIDS, mental health diagnosis, sleep apnea, morbid obesity)? @ -Down syndrome Was patient admitted / discharged? @ -Discharged. Lab work entirely unremarkable. Patient unable to provide a stool sample in the emergency department. His abdominal exam was benign and he had a negative CT scan 6 days ago. As result, imaging was not repeated. Discussed with the patient's caregiver that bowel changes, especially diarrhea, is common after a cholecystectomy. He did just resume his fiber supplement yesterday per his PCPs instruction, which I advised he continue to do. He was given a prescription for Bentyl, Lomotil, and probiotics to see if that offers any additional benefit. Also advised a low fat diet in the meantime. His symptoms were well controlled while he was in the emergency department. Patient discharged home with caregiver in stable condition. Case discussed with ED attending Dr. Sheikh. Return precautions reviewed in depth, the patient is instructed to return to the emergency department with any new, worsening, or concerning symptoms. Patient's caregiver verbalized understanding. Undiagnosed new problem with uncertain prognosis? @ -None Drug Therapy requiring intensive monitoring for toxicity (Heparin, Nitro, Insulin, Cardizem)? @ -None Were any procedures done? @ -None Diagnosis/symptom? @ -Diarrhea Acute, or Chronic, or Acute on Chronic? @ -Acute Uncomplicated (without systemic symptoms) or Complicated (systemic symptoms)? @ -Uncomplicated Side effects of treatment? @ -None Exacerbation, Progression, or Severe Exacerbation] @ -Not applicable Poses a threat to life or bodily function? @ -No - Lab Data Result diagrams: 01/20/25 21:38 01/20/25 21:38 Lab Results 01/20/25 01/20/25 01/20/25 Range/Units 21:38 21:38 21:38 WBC 8.73 (4.50-10.00) 10*3/uL RBC 4.93 (4.40-5.60) 10*6/uL Hgb 15.1 (13.0-17.0) g/dL Hct 43.9 (39.6-50.0) % MCV 89.0 (80.0-97.0) fL MCH 30.6 (27.0-32.0) pg MCHC 34.4 (32.0-37.0) g/dL Plt Count 217 (140-440) 10*3/uL MPV 12.7 H (9.5-12.2) fL Immature Gran % (Auto) 0.3 % Neutrophils % 67.2 % Lymphocytes % 19.0 % Monocytes % 8.9 % Eosinophils % 3.9 % Basophils % 0.7 % Immature Gran # 0.03 (0.00-0.04) 10*3/uL Neutrophils # 5.86 (1.80-7.70) 10*3/uL Lymphocytes # 1.66 (0.90-5.00) 10*3/uL Monocytes # 0.78 (0.20-1.00) 10*3/uL Eosinophils # 0.34 (0.04-0.35) 10*3/uL Basophils # 0.06 (0.00-0.10) 10*3/uL PT (10.0-12.5) sec INR (<1.2) APTT (22.0-30.0) sec Sodium 140 (137-145) mmol/L Potassium 4.1 (3.5-5.1) mmol/L Chloride 106 (98-107) mmol/L Carbon Dioxide 23 (22-30) mmol/L Anion Gap 11 mmol/L BUN 10 (9-20) mg/dL Creatinine 0.85 (0.66-1.25) mg/dL Est GFR (CKD-EPI)AfAm >90 (>60 ml/min/1.73 sqM) Est GFR (CKD-EPI)NonAf >90 (>60 ml/min/1.73 sqM) Glucose 86 (74-99) mg/dL Plasma Lactic Acid Km 1.4 (0.7-2.0) mmol/L Calcium 8.9 (8.4-10.2) mg/dL Magnesium 1.7 (1.6-2.3) mg/dL Total Bilirubin 0.7 (0.2-1.3) mg/dL AST 26 (17-59) U/L ALT 23 (4-49) U/L Alkaline Phosphatase 99 (38-126) U/L Total Protein 7.0 (6.3-8.2) g/dL Albumin 3.9 (3.5-5.0) g/dL Lipase 226 (23-300) U/L 01/20/25 Range/Units 21:38 WBC (4.50-10.00) 10*3/uL RBC (4.40-5.60) 10*6/uL Hgb (13.0-17.0) g/dL Hct (39.6-50.0) % MCV (80.0-97.0) fL MCH (27.0-32.0) pg MCHC (32.0-37.0) g/dL Plt Count (140-440) 10*3/uL MPV (9.5-12.2) fL Immature Gran % (Auto) % Neutrophils % % Lymphocytes % % Monocytes % % Eosinophils % % Basophils % % Immature Gran # (0.00-0.04) 10*3/uL Neutrophils # (1.80-7.70) 10*3/uL Lymphocytes # (0.90-5.00) 10*3/uL Monocytes # (0.20-1.00) 10*3/uL Eosinophils # (0.04-0.35) 10*3/uL Basophils # (0.00-0.10) 10*3/uL PT 12.0 (10.0-12.5) sec INR 1.1 (<1.2) APTT 37.5 H (22.0-30.0) sec Sodium (137-145) mmol/L Potassium (3.5-5.1) mmol/L Chloride (98-107) mmol/L Carbon Dioxide (22-30) mmol/L Anion Gap mmol/L BUN (9-20) mg/dL Creatinine (0.66-1.25) mg/dL Est GFR (CKD-EPI)AfAm (>60 ml/min/1.73 sqM) Est GFR (CKD-EPI)NonAf (>60 ml/min/1.73 sqM) Glucose (74-99) mg/dL Plasma Lactic Acid Km (0.7-2.0) mmol/L Calcium (8.4-10.2) mg/dL Magnesium (1.6-2.3) mg/dL Total Bilirubin (0.2-1.3) mg/dL AST (17-59) U/L ALT (4-49) U/L Alkaline Phosphatase (38-126) U/L Total Protein (6.3-8.2) g/dL Albumin (3.5-5.0) g/dL Lipase (23-300) U/L Disposition Clinical Impression: Diarrhea, Hx of cholecystectomy Disposition: HOME SELF-CARE Instructions (If sedation given, give patient instructions): Acute Diarrhea (ED) Additional Instructions: Return to the emergency department with any new, worsening, or concerning symptoms. Have him begin taking the probiotic supplement daily. The Bentyl can be given up to 4 times daily to help with abdominal pain and cramping. This can also help with diarrhea. The Lomotil can be given in place of Imodium for loose stools as well. Try to have him decrease his fat intake as much as possible as well, which can also help with the loose stools. Prescriptions: Dicyclomine [Bentyl] 20 mg PO QID PRN #30 tablet PRN Reason: Gi Upset Diphenox-Atrop 2.5-0.025 mg [Lomotil] 2 tab PO QID PRN 3 Days #24 tab PRN Reason: Diarrhea L.acidoph,Paracasei, B.lactis [Probiotic] 1 each PO DAILY #30 capsule Is patient prescribed a controlled substance at d/c from ED?: Yes When asked, does pt state using other controlled substances?: No If prescribed controlled substance>3 days was MAPS reviewed?: Prescribed <3 Days Referrals: Houston Lee MD [Primary Care Provider] - 1-2 days Time of Disposition: 22:54
[2025-01-20 21:50] LABS: Basophils # (A) 0.06 10*3/uL (0.00-0.10); Basophils % (A) 0.7 %; Eosinophils # (A) 0.34 10*3/uL (0.04-0.35); Eosinophils % (A) 3.9 %; HCT 43.9 % (39.6-50.0); HGB 15.1 g/dL (13.0-17.0); Lymphocytes # (A) 1.66 10*3/uL (0.90-5.00); MCH 30.6 pg (27.0-32.0); MCHC 34.4 g/dL (32.0-37.0); Mean Platelet Volume 12.7 fL (9.5-12.2); Monocytes # (A) 0.78 10*3/uL (0.20-1.00); Monocytes % (A) 8.9 %; Neutrophils # (A) 5.86 10*3/uL (1.80-7.70); Neutrophils % (A) 67.2 %; Platelet Count 217 10*3/uL (140-440); RBC 4.93 10*6/uL (4.40-5.60); RDW 14.8 % (11.5-14.5); WBC 8.73 10*3/uL (4.50-10.00)
[2025-01-20] MEDS: SODIUM CHLORIDE 0.9% 1,000 ML IV ONE (21:50)
[2025-01-20] MEDS: DICYCLOMINE 10 MG/ML 2 ML AMP IM STA (21:50)
[2025-01-20 21:56] VITALS: RESP 16
[2025-01-20 21:57] LABS: INR 1.1 (<1.2); Partial Thromboplastin Time 37.5 sec (22.0-30.0)
[2025-01-20 22:05] LABS: ALT 23 U/L (4-49); AST 26 U/L (17-59); African American GFR (CKD) >90 (>60 ml/min/1.73 sqM); Albumin 3.9 g/dL (3.5-5.0); Alkaline Phosphatase 99 U/L (38-126); Anion Gap 11 mmol/L; Blood Urea Nitrogen 10 mg/dL (9-20); Calcium 8.9 mg/dL (8.4-10.2); Carbon Dioxide 23 mmol/L (22-30); Chloride 106 mmol/L (98-107); Glucose 86 mg/dL (74-99); Lipase 226 U/L (23-300); Magnesium 1.7 mg/dL (1.6-2.3); Non-African American GFR(CKD) >90 (>60 ml/min/1.73 sqM); Potassium 4.1 mmol/L (3.5-5.1); Sodium 140 mmol/L (137-145); Total Bilirubin 0.7 mg/dL (0.2-1.3)
[2025-01-20] MEDS: MORPHINE SULFATE 4 MG/ML SYRINGE IVP STA (22:13)
[2025-01-20] MEDS: DIPHENOX-ATROP 2.5-0.025 MG 1 EACH TAB PO STA (22:13)
[2025-01-20] MEDS: PANTOPRAZOLE 40 MG/10 ML VIAL IVP STA (22:13)
[2025-01-20] MEDS: HYDROmorphone 1 MG/ML 1 ML SYRINGE IVP STA (23:10)
[2025-01-20] MEDS: LACTOBACILLUS ACIDOPHILUS/PECT 1 EACH CAPSULE PO STA (23:11)
[2025-01-20] MEDS: DIPHENOX-ATROP STARTER PACK 8 TAB BTL PO STA (23:11)
[2025-01-20] MEDS: ACET/COD 300 MG/30 MG STARTER PACK 6 TAB BTL PO STA (23:11)
[2025-01-20 23:33] VITALS: BP 105/68; PULSE 72; TEMP 98.5
== END 2025-01-20 23:32 | disposition home or self-care (01) ==
LOC: SUPCPDRO 19:59 → EC 19:59
DX: R19.7 Diarrhea, unspecified (principal); Q90.9 Down syndrome, unspecified; Z90.49 Acquired absence of other specified parts of digestive tract; Z86.16 Personal history of COVID-19
CPT/HCPCS: 36415; 80053; 83605; 83690; 83735; 85025; 85610; 85730; 99284; 96374; 96375 ×2; 96361; 96372; J2270; J0500; J1171; J2470